=== PATIENT | female | born 1945 | race Caucasian/White ===

== ENCOUNTER 2018-07-08 10:11 | Inpatient (IN) ==
[2018-07-08] MEDS ORDERED: ONDANSETRON INJ 2 MG/ML 2 ML VIAL IV STA ×2 (10:56→12:31)
[2018-07-08] MEDS ORDERED: fentaNYL citrate 100 MCG/2 ML VIAL IV STA (10:56)
[2018-07-08] MEDS: SODIUM CHLORIDE 0.9% 1000ML 1,000 ML IV SCH ×2 (11:11→16:14)
[2018-07-08 11:13] LABS: Basophils # (auto) 0.02 K/uL (0-0.2); Basophils % (auto) 0.3 %; Eosinophils # (auto) 0.18 K/uL (0-0.5); Eosinophils % (auto) 2.8 %; Hematocrit (blood only) 36.8 % (37-47); Immature Granulocytes # (auto) 0.01 K/uL (0.00-0.02); Immature Granulocytes % (auto) 0.2 %; Lymphocytes # (auto) 1.57 K/uL (1.2-3.4); Lymphocytes % (auto) 24.2 %; Mean Corpuscular Hgb Conc 32.6 g/dL (32-36); Mean Corpuscular Volume 95.8 fL (80-100); Mean Platelet Volume 10.3 fL (7.4-10.4); Monocytes # (auto) 0.51 K/uL (0.11-0.59); Monocytes % (auto) 7.8 %; Neutrophils # (auto) 4.21 K/uL (1.4-6.5); Neutrophils % (auto) 64.7 %; Platelet Count 238 K/uL (130-400); RDW Coefficient of Variation 13.9 % (11.5-14.5); RDW Standard Deviation 48.7 fL (36.4-46.3); Red Blood Count 3.84 M/uL (4.2-5.4)
[2018-07-08 11:24] LABS: Albumin Level 3.7 gm/dl (3.4-5.0); BUN Creatinine Ratio 17.5 (10-20); Est GFR (African American) 59.1; Potassium 4.7 mmol/L (3.5-5.1)
[2018-07-08 11:26] LABS: Albumin Globulin Ratio 1.1 (0.9-2); Bilirubin,Total 0.3 mg/dl (0.2-1); Globulin 3.5 gm/dl (2.5-4.0); Total Protein 7.2 gm/dl (6.4-8.2)
[2018-07-08 11:37] LABS: iSTAT Hemoglobin 12.2 g/dl (12.0-16.0); iSTAT Ionized Calcium 1.28 mmol/l (1.12-1.32)
--- NOTE | 2018-07-08 11:44 | XRay Report ---
XR femur LT 2V routine HISTORY: 72 years-old Female fall, tka acute left-sided pain status post fall COMPARISON: Left knee radiographs 02/25/2013 TECHNIQUE: 2 views of the left femur. FINDINGS: Limited study secondary to positioning. 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 Partially imaged fusion hardware about the pelvis. Left knee total joint arthroplasty with prior patellar resurfacing. Imaged proximal tibia and fibula appear intact. Moderate soft tissue swelling a bout the knee and distal thigh. There is acute comminuted fracture of the distal femoral metadiaphysi s which demonstrates approximately 9 degrees apex lateral and 38 degrees apex volar angulation. Fract ure fragments are displaced laterally 2 cm and posteriorly measuring up to 1 cm. There is mild foresh ortening/apposition of the fracture fragments measuring up to approximately 3 cm. The distal extent o f the fracture extends to the level of the femoral prosthesis. IMPRESSION: Acute comminuted, displaced and angulated fracture of the distal femoral metadiaphysis with distal fr acture extending to the level of the femoral prosthesis. The above report was generated using voice recognition software. It may contain grammatical, syntax o r spelling errors. Electronically signed by: Alex Pretty M.D. 07/08/2018 11:43 AM
[2018-07-08] MEDS ORDERED: HYDROmorphone INJ 0.5 MG/0.5 ML SYR IV STA (12:31)
--- NOTE | 2018-07-08 12:31 | History & Physical Report ---
Date of Service July 08, 2018 Assessment & Plan (1) Fall: Ongoing balance issues Purely mechanical PT/OT (2) Femur fracture, left: As per ortho Pre-op Hb 12.0 Diet and DVT proph as per ortho PT/OT Likely need rehab Pt is NPO, if not planning for OR today I have no issues with adding diet for today (3) HTN (hypertension): continue home meds (4) Hypothyroid: continue home meds (5) Depression: continue home meds (6) Dementia: Dx in May, issues with sundowning continue home meds (7) Anxiety: continue home meds (8) Overactive bladder: continue home meds (9) DVT prophylaxis: As per ortho History of Present Illness Primary Care Provider: JOANNA RODARTE 72 y/o F c/o L LE pain. Pt fell this AM. She states she fell directly onto her L knee. She states that she has been having ongoing balance issues and has had several falls. She has seen her PCP for this and there is no clear answer to this. PCP feels it is related to loss of core strength s/p several spine surgeries. Pt was given exercises to work on rebuilding her core strength but had not started this yet. Pt states her fall was purely related to loss of balance. No dizziness or lightheadedness or syncope. Pt denies fever, SOB, chest pain, abd pain, n/v/c/d, LE swelling. Pt states that other than the loss of balance, she has had no issues lately. She did not take the clonazpam today. Last PO intake was a muffin around 7a. Pt states she was dx with Alzheimer's this past May. She and her daughter both deny issues with sundowning currently. Allergies Allergy/AdvReac Type Severity Reaction Status Date / Time Iodinated Contrast- Oral and Allergy Severe HIVES Verified 07/08/18 11:15 IV Dye baclofen Allergy Unknown Unverified 07/08/18 11:15 cyclobenzaprine Allergy Unknown Unverified 07/08/18 11:15 [From Flexeril] morphine Allergy Unknown Unverified 07/08/18 11:15 Penicillins AdvReac Intermediate RASH Verified 07/08/18 11:15 tizanidine [From Zanaflex] AdvReac Hallucinati Unverified 07/08/18 11:15 ng Home Medications Home Medications Medication Instructions Recorded Confirmed Type bupropion HCl 150 mg PO DAILY 05/27/18 07/08/18 History cevimeline 30 mg PO TID 05/27/18 07/08/18 History clonazepam 1 mg PO DIRECTED PRN 05/27/18 07/08/18 History donepezil 5 mg PO DAILY 05/27/18 07/08/18 History folic acid 2 mg PO QPM 05/27/18 07/08/18 History levothyroxine [Synthroid] 25 mcg PO DAILY 05/27/18 07/08/18 History lisinopril 10 mg PO DAILY 05/27/18 07/08/18 History meloxicam 15 mg PO DAILY 05/27/18 07/08/18 History solifenacin [Vesicare] 10 mg PO QPM 05/27/18 07/08/18 History vortioxetine [Trintellix] 20 mg PO DAILY 05/27/18 07/08/18 History cholecalciferol (vitamin D3) 1,000 unit PO DAILY 07/08/18 07/08/18 History [Vitamin D3] hydroxychloroquine 400 mg PO DAILY 07/08/18 07/08/18 History [id number]-[id number]-IF-calcium-mins 1 tab PO QAM 07/08/18 07/08/18 History [One-A-Day Women's Petites] oxycodone 5 mg PO DIRECTED PRN 07/08/18 07/08/18 History venlafaxine 300 mg PO QAM 07/08/18 07/08/18 History Past Med/Surg History Medical History Alzheimers disease (Chronic) Arthritis (Chronic) Surgical History H/O knee surgery (Resolved) Family History Mother CVA (cerebrovascular accident due to intracerebral hemorrhage) Father CVA (cerebral vascular accident) Social History Feels Safe at Home: Yes Smoking Status: Former smoker Smoking End Date: >10 yrs Hx Alcohol Use: No Hx Substance Use: No Review of Systems Pertinent positives and negatives reviewed in HPI--all others negative Physical Exam 2 Vital Signs (Past 24 Hours): Last Vital Signs Temp 36.7 C 07/08/18 10:22 Pulse 82 07/08/18 10:22 Resp 18 07/08/18 10:22 BP 150/75 H 07/08/18 10:22 Pulse Ox 98 07/08/18 11:12 Constitutional: WD/WN, vitals as above Eyes: normal visual rodrigez by confrontation and + anicteric sclerae Neck: normal visual inspection and trachea midline Respiratory: normal respiratory effort, lungs clear to auscultation Cardiovascular: Rate/Rhythm: regular rate and regular rhythm Gastrointestinal (Abdomen): Inspection/Auscultation: abdomen not distended Percussion/Palpation: abdomen soft; abdomen nontender Musculoskeletal: Head/Neck/Chest: normocephalic and head atraumatic negative for edema, peripheral pulses intact Skin: no rashes, warm and dry Neurologic: awake; not confused Speech / Cognition: normal speech Psychiatric: A+Ox3, euthymic affect Results & Data Diagnostic Findings L LE XR: Acute comminuted, displaced and angulated fracture of the distal femoral metadiaphysis with distal fracture extending to the level of the femoral prosthesis.
--- NOTE | 2018-07-08 13:06 | XRay Report ---
XR chest 1V portable CLINICAL HISTORY: trauma, preop COMPARISON STUDY: Chest radiograph November 17, 2012. FINDINGS: Spinal hardware is incidentally noted. Cardiomediastinal silhouette is unremarkable. There is no consolidation or evidence for pulmonary edema. There is no pneumothorax or pleural effusion. Th ere is old deformity of the distal left clavicle. There is moderate arthritis of the bilateral glenoh umeral joints. IMPRESSION: No acute cardiopulmonary findings. Electronically signed by: Karl Mcmullen M.D. 07/08/2018 1:05 PM
[2018-07-08 13:37] LABS: Appearance Urine Clear (Clear); Bilirubin Urine Negative (Negative); Color Urine Yellow; Glucose Urine UA Negative (Negative); Ketones Urine Negative (Negative); Leukocyte Esterase Urine Negative (Negative); Nitrite Urine Negative (Negative); Protein Urine Negative (Negative); Specific Gravity Urine 1.019 (1.000-1.030); Urobilinogen Urine Negative (Negative)
[2018-07-08] MEDS ORDERED: MAGNESIUM HYDROXIDE SUSP 30 ML UDC PO PRN (15:27)
--- NOTE | 2018-07-08 15:33 | Emergency Department Note ---
Entered by Kathy Burger acting as a scribe for Sheeba Hurd MD History of Present Illness General Chief complaint: Fall Stated complaint: fall/ head & L knee pain Source: patient History of Present Illness Provider complaint: fall Onset (ago): minute(s) (shortly prior to arrival ) Location: lower extremity (knee) and left Maximum Pain Intensity: 10 Quality: + other (fall) Associated symptoms: + denies other symptoms (denies hip pain) and + other ( left knee pain); no chest pain The patient is a 72 year old female who presents to the Emergency Room with complaints of a fall occurring shortly prior to arrival. She rates her pain at a 10/10. The patient reports having left knee pain and states that it also radiates to her back. She denies hitting her head with this fall and also denies hip and chest pain. The patient reports a history of bilateral knee surgeries. Home Medications Home Medications Medication Instructions Recorded Confirmed Type bupropion HCl 150 mg PO DAILY 05/27/18 07/08/18 History cevimeline 30 mg PO TID 05/27/18 07/08/18 History clonazepam 1 mg PO DIRECTED PRN 05/27/18 07/08/18 History donepezil 5 mg PO DAILY 05/27/18 07/08/18 History folic acid 2 mg PO QPM 05/27/18 07/08/18 History levothyroxine [Synthroid] 25 mcg PO DAILY 05/27/18 07/08/18 History lisinopril 10 mg PO DAILY 05/27/18 07/08/18 History meloxicam 15 mg PO DAILY 05/27/18 07/08/18 History solifenacin [Vesicare] 10 mg PO QPM 05/27/18 07/08/18 History vortioxetine [Trintellix] 20 mg PO DAILY 05/27/18 07/08/18 History cholecalciferol (vitamin D3) 1,000 unit PO DAILY 07/08/18 07/08/18 History [Vitamin D3] hydroxychloroquine 400 mg PO DAILY 07/08/18 07/08/18 History rchbikdk-vvtz-AH-calcium-mins 1 tab PO QAM 07/08/18 07/08/18 History [One-A-Day Women's Petites] oxycodone 5 mg PO DIRECTED PRN 07/08/18 07/08/18 History venlafaxine 300 mg PO QAM 07/08/18 07/08/18 History Allergies Allergy/AdvReac Type Severity Reaction Status Date / Time Iodinated Contrast- Oral and Allergy Severe HIVES Verified 07/08/18 11:15 IV Dye baclofen Allergy Unknown Unverified 07/08/18 11:15 cyclobenzaprine Allergy Unknown Unverified 07/08/18 11:15 [From Flexeril] morphine Allergy Unknown Unverified 07/08/18 11:15 Penicillins AdvReac Intermediate RASH Verified 07/08/18 11:15 tizanidine [From Zanaflex] AdvReac Hallucinati Unverified 07/08/18 11:15 ng Past Med/Surg History Medical History Overactive bladder Anxiety Depression Hypothyroid HTN (hypertension) Alzheimers disease (Chronic) Arthritis (Chronic) Anemia Surgical History H/O knee surgery (Resolved) Family History Mother CVA (cerebrovascular accident due to intracerebral hemorrhage) Father CVA (cerebral vascular accident) Social History marital status: Current Living Situation: Spouse Current Living Situation Comment: in apartment with Other Information That Helps Us Care for You: No Feels Safe at Home: Yes Safety Concerns: Feels Safe At This Time Smoking Status: Former smoker Tobacco Type: cigarettes Do You Dip or Chew Tobacco: No Smoking End Date: 2011 Hx Alcohol Use: No Hx Substance Use: No Beliefs That Will Affect Care: None Communication Ability: Effective Review of Systems See HPI for pertinent positives & negatives. and A total of 10 systems reviewed and were otherwise negative Physical Exam Vital Signs Vital Signs - 24 hr 07/08/18 22:19 07/08/18 22:45 07/09/18 08:07 Temperature 37.4 C 37.8 C H Temperature Source Oral Oral Pulse Rate [Apical] Pulse Rate [Left Apical] 74 Pulse Rate [Left Finger] 91 H Pulse Rhythm [Apical] Pulse Rhythm [Left Apical] Regular Pulse Strength [Left Apical] Normal Respiratory Rate 18 14 Respiratory Effort / Characteristics Non-Labored Spontaneous Non-Labored Spontaneous Respiratory Depth Normal Normal Respiratory Pattern Regular Regular Blood Pressure [Left Arm] 133/79 Blood Pressure [Right Arm] 138/74 Blood Pressure Mean [Left Arm] 97 Blood Pressure Mean [Right Arm] 95 Blood Pressure Position [Left Arm] Lying Blood Pressure Position [Right Arm] Lying Pulse Oximetry 96 97 Oxygen Delivery Method Room Air Room Air Room Air Oxygen Flow Rate 07/09/18 09:19 07/09/18 13:05 07/09/18 16:01 Temperature 37.4 C 36.5 C Temperature Source Oral Temporal Artery Scan Pulse Rate [Apical] 101 H Pulse Rate [Left Apical] 95 H Pulse Rate [Left Finger] Pulse Rhythm [Apical] Regular Pulse Rhythm [Left Apical] Regular Pulse Strength [Left Apical] Normal Respiratory Rate 18 23 Respiratory Effort / Characteristics Non-Labored Spontaneous Non-Labored Non-Labored Spontaneous Respiratory Depth Normal Normal Normal Respiratory Pattern Regular Regular Regular Blood Pressure [Left Arm] 127/63 Blood Pressure [Right Arm] 145/70 H Blood Pressure Mean [Left Arm] 84 Blood Pressure Mean [Right Arm] 95 Blood Pressure Position [Left Arm] Lying Blood Pressure Position [Right Arm] Sitting Pulse Oximetry 97 100 Oxygen Delivery Method Room Air Room Air Oxymask Oxygen Flow Rate 10 07/09/18 16:10 07/09/18 16:20 07/09/18 16:30 Temperature Temperature Source Temporal Artery Scan Temporal Artery Scan Temporal Artery Scan Pulse Rate [Apical] 100 H 98 H 98 H Pulse Rate [Left Apical] Pulse Rate [Left Finger] Pulse Rhythm [Apical] Regular Regular Regular Pulse Rhythm [Left Apical] Pulse Strength [Left Apical] Respiratory Rate 21 19 16 Respiratory Effort / Characteristics Non-Labored Spontaneous Non-Labored Spontaneous Non-Labored Spontaneous Respiratory Depth Normal Normal Normal Respiratory Pattern Regular Regular Regular Blood Pressure [Left Arm] 120/63 128/62 106/56 L Blood Pressure [Right Arm] Blood Pressure Mean [Left Arm] 82 84 72 Blood Pressure Mean [Right Arm] Blood Pressure Position [Left Arm] Lying Lying Lying Blood Pressure Position [Right Arm] Pulse Oximetry 100 100 100 Oxygen Delivery Method Oxymask Nasal Cannula Nasal Cannula Oxygen Flow Rate 10 2 2 Vital signs reviewed. General: Elderly female, in some discomfort. HEENT: No scleral icterus, PERRLA, neck supple. Atraumatic. Cardiovascular: Regular rate and rhythm, no extra sounds. Pulmonary: Clear to auscultation bilaterally, normal work of breathing. Abdomen: Soft, nontender, nondistended, positive bowel sounds. Musculoskeletal: Atraumatic, no peripheral edema. Deformity of the left knee. Swelling appreciated. Lying on the right side in position of comfort. Neurovascularly intact distally. Neurologic: Patient awake alert and oriented x 3, full strength in all 4 extremities. Cranial nerves 2 through 12 grossly intact. Skin: Warm, dry, no rash Course 1052: Past medical records reviewed. The patient was evaluated in room B3B, and a complete history and physical examination were performed. 1125: I updated the patient on her X-Ray results. 1145: I discussed the patient's case with Edouard LEE who said that he will come see the patient. 1155: The patient stated that she would like [facility]. 1222: I discussed the patient's case with Dr[facility] who said to admit the patient to medicine. 1223: I updated the patient. 1230: I discussed the patient's case with Dr. Edison Paul who will evaluate the patient for further management. Consultations Consultation #1: Edouard LEE Time: 11:45 Consultation #2: [facility] Time: 12:22 Consultation #3: Dr. Edison Paul Time: 12:30 Administered Medications Bupropion HCl (Wellbutrin-Xl) 150 mg PO DAILY [facility] Stop: 08/08/18 08:59 Last Admin: 07/09/18 08:33 Dose: 150 mg Clonazepam (Klonopin) 1 mg PO BID PRN PRN Reason: Anxiety Stop: 08/07/18 17:17 Last Admin: 07/09/18 03:23 Dose: 1 mg Donepezil HCl (Aricept) 5 mg PO DAILY [facility] Stop: 08/08/18 08:59 Last Admin: 07/09/18 08:33 Dose: 5 mg Hydromorphone HCl (Dilaudid) 0.5 mg IV Q4H PRN PRN Reason: Pain Stop: 07/22/18 15:26 Last Admin: 07/09/18 11:50 Dose: 0.5 mg Admin: 07/08/18 17:28 Dose: 0.5 mg Hydroxychloroquine Sulfate (Plaquenil) 400 mg PO QDD [facility] Stop: 08/07/18 17:29 Last Admin: 07/08/18 17:59 Dose: 400 mg Sodium Chloride (Nss 1000ml) 1,000 mls @ 125 mls/hr IV .Q8H [facility]ISSE Stop: 08/07/18 10:59 Last Admin: 07/09/18 09:30 Dose: 125 mls/hr Infusion: 07/09/18 08:46 Dose: 125 mls/hr Infusion: 07/09/18 05:46 Dose: 125 mls/hr Admin: 07/09/18 00:46 Dose: 125 mls/hr Infusion: 07/09/18 00:14 Dose: 125 mls/hr Admin: 07/08/18 16:14 Dose: 125 mls/hr Infusion: 07/08/18 16:14 Dose: 125 mls/hr Admin: 07/08/18 11:11 Dose: 125 mls/hr Levothyroxine Sodium (Synthroid) 25 mcg PO DAILYBB [facility] Stop: 08/08/18 06:29 Last Admin: 07/09/18 05:36 Dose: 25 mcg Lisinopril (Zestril) 10 mg PO DAILY CHARISSE Stop: 08/08/18 08:59 Last Admin: 07/09/18 08:33 Dose: 10 mg Meloxicam (Mobic) 15 mg PO DAILY [facility] Stop: 08/08/18 08:59 Last Admin: 07/09/18 08:33 Dose: 15 mg Vesicare 10mg - (Patient's Own Med) 1 ea PO HS [facility] Stop: 08/07/18 20:59 Last Admin: 07/08/18 22:03 Dose: 10 mg Cevimeline 30mg - (Patient's Own Med) 1 ea PO TID [facility]SE Stop: 08/07/18 20:59 Last Admin: 07/09/18 08:34 Dose: 1 mg Admin: 07/08/18 22:04 Dose: 30 mg Oxycodone/Acetaminophen (Percocet 5mg/325mg) 1 tab PO Q4H PRN PRN Reason: Pain Stop: 07/22/18 16:34 Last Admin: 07/09/18 08:33 Dose: 1 tab Admin: 07/09/18 03:23 Dose: 1 tab Admin: 07/08/18 22:01 Dose: 1 tab Venlafaxine HCl (Effexor Extended Release) 300 mg PO QAM [facility] Stop: 08/08/18 08:59 Last Admin: 07/09/18 08:33 Dose: 150 mg Vitamin D (Vitamin D3) 1,000 units PO DAILY [facility] Stop: 08/08/18 08:59 Last Admin: 07/09/18 08:33 Dose: 1,000 units Vortioxetine (Trintellix) 1 ea PO Q2D@0900 [facility] Stop: 07/14/18 23:59 Last Admin: 07/09/18 08:34 Dose: 1 ea Discontinued Medications Bacitracin (Bacitracin) Confirm Administered Dose 50,000 units .ROUTE .STK-MED ONE Stop: 07/09/18 13:01 Last Admin: 07/09/18 15:51 Dose: 50,000 units Bupivacaine HCl (Sensorcaine 0.25% Inj) Confirm Administered Dose 60 ml .ROUTE .STK-MED ONE Stop: 07/09/18 13:00 Last Admin: 07/09/18 14:30 Dose: Not Given Bupivacaine HCl/Epinephrine Bitart (Sensorcaine/Epinephrine 0.5% Mpf 1:200,000) Confirm Administered Dose 60 ml .ROUTE .STK-MED ONE Stop: 07/09/18 13:09 Last Admin: 07/09/18 15:25 Dose: 60 ml Bupivacaine Liposome (Exparel) Confirm Administered Dose 266 mg .ROUTE .STK-MED ONE Stop: 07/09/18 13:01 Last Admin: 07/09/18 14:30 Dose: Not Given Cefazolin Sodium (Ancef 2000mg) Confirm Administered Dose 2,000 mg IV .STK-MED ONE Stop: 07/09/18 13:12 Last Admin: 07/09/18 13:13 Dose: 2,000 mg Epinephrine HCl (Epinephrine) Confirm Administered Dose 1 mg .ROUTE .STK-MED ONE Stop: 07/09/18 13:03 Last Admin: 07/09/18 14:31 Dose: Not Given Fentanyl Citrate (Fentanyl Citrate) 50 mcg IV NOW STA Stop: 07/08/18 10:57 Last Admin: 07/08/18 11:11 Dose: 50 mcg Hydromorphone HCl (Dilaudid) 1 mg IV NOW STA Stop: 07/08/18 12:32 Last Admin: 07/08/18 12:42 Dose: 1 mg Miscellaneous (Order Awaiting Action) 1 ea N/A QS [facility] Stop: 08/07/18 15:59 Last Admin: 07/08/18 17:05 Dose: Not Given Miscellaneous (Order Awaiting Action) 1 ea N/A QS [facility]SE Stop: 08/07/18 15:59 Last Admin: 07/08/18 17:05 Dose: Not Given Miscellaneous (Order Awaiting Action) 1 ea N/A QS [facility] Stop: 08/07/18 15:59 Last Admin: 07/08/18 17:06 Dose: Not Given Miscellaneous (Order Awaiting Action) 1 ea N/A QS CHARISSE Stop: 08/07/18 15:59 Last Admin: 07/08/18 17:05 Dose: Not Given Ondansetron HCl (Zofran) 4 mg IV NOW STA Stop: 07/08/18 10:57 Last Admin: 07/08/18 11:11 Dose: 4 mg Ondansetron HCl (Zofran) 4 mg IV NOW STA Stop: 07/08/18 12:32 Last Admin: 07/08/18 12:43 Dose: 4 mg Sodium Chloride (Sodium Chloride 0.9%) Confirm Administered Dose 30 ml .ROUTE .STK-MED ONE Stop: 07/09/18 13:02 Last Admin: 07/09/18 14:31 Dose: Not Given Medical Decision Making Differential Diagnosis Differential diagnosis: Etiologies such as fracture, dislocation, neurovascular compromise, compartment syndrome, soft tissue injury, as well as others were entertained. Medical Records Attestation: I reviewed the patient's medical records. Home Medications Current Medication List: was personally reviewed by me Laboratory Data Attestation: I reviewed the patient's lab results. Result diagrams: 07/09/18 06:37 07/09/18 06:37 Lab Results 07/08/18 07/08/18 07/08/18 Range/Units 10:50 10:50 11:23 WBC 6.50 (4.8-10.8) K/uL RBC 3.84 L (4.2-5.4) M/uL Hgb 12.0 (12.0-16.0) g/dL POC Hgb 12.2 (12.0-16.0) g/dl Hct 36.8 L (37-47) % POC Hct 36 L (37-47) % MCV 95.8 (80-100) fL MCH 31.3 (25-34) pg MCHC 32.6 (32-36) g/dL RDW Std Deviation 48.7 H (36.4-46.3) fL RDW Coeff of Dru 13.9 (11.5-14.5) % Plt Count 238 (130-400) K/uL MPV 10.3 (7.4-10.4) fL Immature Gran % (Auto) 0.2 % Neut % (Auto) 64.7 % Lymph % (Auto) 24.2 % [place]anan % (Auto) 7.8 % Eos % (Auto) 2.8 % Baso % (Auto) 0.3 % Immature Gran # (Auto) 0.01 (0.00-0.02) K/uL Neut # (Auto) 4.21 (1.4-6.5) K/uL Lymph # (Auto) 1.57 (1.2-3.4) K/uL [place]anan # (Auto) 0.51 (0.11-0.59) K/uL Eos # (Auto) 0.18 (0-0.5) K/uL Baso # (Auto) 0.02 (0-0.2) K/uL Platelet Estimate (Normal) POC Sodium 143 (135-144) mEq/L Sodium 140 (136-145) mmol/L POC Potassium 4.7 (3.3-5.0) mEq/L Potassium 4.7 (3.5-5.1) mmol/L POC Chloride 107 (101-112) mEq/L Chloride 111 H (98-107) mmol/L Carbon Dioxide 26 (21-32) mmol/L POC Total CO2 27 (24-31) mEq/l Anion Gap 3.0 (3-11) POC Anion Gap 15.0 L (16-25) mmol/L POC BUN 19 H (7-18) mg/dl BUN 19 H (7-18) mg/dl Creatinine 1.09 (0.6-1.2) mg/dl POC Creatinine 1.1 (0.6-1.3) mg/dl Est Cr Clr Drug Dosing 46.0 ml/min Est GFR ( Amer) 59.1 Est GFR (Non-Af Amer) 51.0 BUN/Creatinine Ratio 17.5 (10-20) Glucose 97 (70-99) mg/dl POC Glucose (other) 92 (70-99) mg/dl Calcium 9.0 (8.5-10.1) mg/dl POC Ioniz Calcium Sharon 1.28 (1.12-1.32) mmol/l Total Bilirubin 0.3 (0.2-1) mg/dl AST 40 H (15-37) U/L ALT 50 (12-78) U/L Alkaline Phosphatase 138 H (45-117) U/L Total Protein 7.2 (6.4-8.2) gm/dl Albumin 3.7 (3.4-5.0) gm/dl Globulin 3.5 (2.5-4.0) gm/dl Albumin/Globulin Ratio 1.1 (0.9-2) Urine Color Urine Appearance (Clear) Urine pH (4.5-7.5) Ur Specific [place] (1.000-1.030) Urine Protein (Negative) Urine Glucose (UA) (Negative) Urine Ketones (Negative) Urine Blood (Negative) Urine Nitrite (Negative) Urine Bilirubin (Negative) Urine Urobilinogen (Negative) Ur Leukocyte Esterase (Negative) Blood Type Antibody Screen 07/08/18 07/08/18 07/09/18 Range/Units 13:30 15:54 06:37 WBC 9.02 (4.8-10.8) K/uL RBC 2.92 L (4.2-5.4) M/uL Hgb 9.3 L (12.0-16.0) g/dL POC Hgb (12.0-16.0) g/dl Hct 28.0 L (37-47) % POC Hct (37-47) % MCV 95.9 (80-100) fL MCH 31.8 (25-34) pg MCHC 33.2 (32-36) g/dL RDW Std Deviation 48.5 H (36.4-46.3) fL RDW Coeff of Dru 14.0 (11.5-14.5) % Plt Count 163 (130-400) K/uL MPV 10.8 H (7.4-10.4) fL Immature Gran % (Auto) 0.3 % Neut % (Auto) 61.8 % Lymph % (Auto) 26.1 % [place]anan % (Auto) 11.5 % Eos % (Auto) 0.1 % Baso % (Auto) 0.2 % Immature Gran # (Auto) 0.03 H (0.00-0.02) K/uL Neut # (Auto) 5.57 (1.4-6.5) K/uL Lymph # (Auto) 2.35 (1.2-3.4) K/uL [place]anan # (Auto) 1.04 H (0.11-0.59) K/uL Eos # (Auto) 0.01 (0-0.5) K/uL Baso # (Auto) 0.02 (0-0.2) K/uL Platelet Estimate Normal (Normal) POC Sodium (135-144) mEq/L Sodium (136-145) mmol/L POC Potassium (3.3-5.0) mEq/L Potassium (3.5-5.1) mmol/L POC Chloride (101-112) mEq/L Chloride (98-107) mmol/L Carbon Dioxide (21-32) mmol/L POC Total CO2 (24-31) mEq/l Anion Gap (3-11) POC Anion Gap (16-25) mmol/L POC BUN (7-18) mg/dl BUN (7-18) mg/dl Creatinine (0.6-1.2) mg/dl POC Creatinine (0.6-1.3) mg/dl Est Cr Clr Drug Dosing ml/min Est GFR ( Amer) Est GFR (Non-Af Amer) BUN/Creatinine Ratio (10-20) Glucose (70-99) mg/dl POC Glucose (other) (70-99) mg/dl Calcium (8.5-10.1) mg/dl POC Ioniz Calcium Sharon (1.12-1.32) mmol/l Total Bilirubin (0.2-1) mg/dl AST (15-37) U/L ALT (12-78) U/L Alkaline Phosphatase (45-117) U/L Total Protein (6.4-8.2) gm/dl Albumin (3.4-5.0) gm/dl Globulin (2.5-4.0) gm/dl Albumin/Globulin Ratio (0.9-2) Urine Color Yellow Urine Appearance Clear (Clear) Urine pH 5.0 (4.5-7.5) Ur Specific [place] 1.019 (1.000-1.030) Urine Protein Negative (Negative) Urine Glucose (UA) Negative (Negative) Urine Ketones Negative (Negative) Urine Blood Negative (Negative) Urine Nitrite Negative (Negative) Urine Bilirubin Negative (Negative) Urine Urobilinogen Negative (Negative) Ur Leukocyte Esterase Negative (Negative) Blood Type O Positive Antibody Screen NEGATIVE 07/09/18 Range/Units 06:37 WBC (4.8-10.8) K/uL RBC (4.2-5.4) M/uL Hgb (12.0-16.0) g/dL POC Hgb (12.0-16.0) g/dl Hct (37-47) % POC Hct (37-47) % MCV (80-100) fL MCH (25-34) pg MCHC (32-36) g/dL RDW Std Deviation (36.4-46.3) fL RDW Coeff of Dru (11.5-14.5) % Plt Count (130-400) K/uL MPV (7.4-10.4) fL Immature Gran % (Auto) % Neut % (Auto) % Lymph % (Auto) % [place]anan % (Auto) % Eos % (Auto) % Baso % (Auto) % Immature Gran # (Auto) (0.00-0.02) K/uL Neut # (Auto) (1.4-6.5) K/uL Lymph # (Auto) (1.2-3.4) K/uL [place]anan # (Auto) (0.11-0.59) K/uL Eos # (Auto) (0-0.5) K/uL Baso # (Auto) (0-0.2) K/uL Platelet Estimate (Normal) POC Sodium (135-144) mEq/L Sodium 138 (136-145) mmol/L POC Potassium (3.3-5.0) mEq/L Potassium 4.7 (3.5-5.1) mmol/L POC Chloride (101-112) mEq/L Chloride 111 H (98-107) mmol/L Carbon Dioxide 22 (21-32) mmol/L POC Total CO2 (24-31) mEq/l Anion Gap 5.0 (3-11) POC Anion Gap (16-25) mmol/L POC BUN (7-18) mg/dl BUN 17 (7-18) mg/dl Creatinine 0.92 (0.6-1.2) mg/dl POC Creatinine (0.6-1.3) mg/dl Est Cr Clr Drug Dosing 54.5 ml/min Est GFR ( Amer) 72.6 Est GFR (Non-Af Amer) 62.6 BUN/Creatinine Ratio 18.8 (10-20) Glucose 95 (70-99) mg/dl POC Glucose (other) (70-99) mg/dl Calcium 8.3 L (8.5-10.1) mg/dl POC Ioniz Calcium Sharon (1.12-1.32) mmol/l Total Bilirubin (0.2-1) mg/dl AST (15-37) U/L ALT (12-78) U/L Alkaline Phosphatase (45-117) U/L Total Protein (6.4-8.2) gm/dl Albumin (3.4-5.0) gm/dl Globulin (2.5-4.0) gm/dl Albumin/Globulin Ratio (0.9-2) Urine Color Urine Appearance (Clear) Urine pH (4.5-7.5) Ur Specific [place] (1.000-1.030) Urine Protein (Negative) Urine Glucose (UA) (Negative) Urine Ketones (Negative) Urine Blood (Negative) Urine Nitrite (Negative) Urine Bilirubin (Negative) Urine Urobilinogen (Negative) Ur Leukocyte Esterase (Negative) Blood Type Antibody Screen Imaging Data Radiologist's Impression: Radiology results as stated below per my review and the radiologist's interpretation: XR femur LT 2V routine HISTORY: 72 years-old Female fall, tka acute left-sided pain status post fall COMPARISON: Left knee radiographs 02/25/2013 TECHNIQUE: 2 views of the left femur. FINDINGS: Limited study secondary to positioning. 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 Partially imaged fusion hardware about the pelvis. Left knee total joint arthroplasty with prior patellar resurfacing. Imaged proximal tibia and fibula appear intact. Moderate soft tissue swelling about the knee and distal thigh. There is acute comminuted fracture of the distal femoral metadiaphysis which demonstrates approximately 9 degrees apex lateral and 38 degrees apex volar angulation. Fracture fragments are displaced laterally 2 cm and posteriorly measuring up to 1 cm. There is mild foreshortening/apposition of the fracture fragments measuring up to approximately 3 cm. The distal extent of the fracture extends to the level of the femoral prosthesis. IMPRESSION: Acute comminuted, displaced and angulated fracture of the distal femoral metadiaphysis with distal fracture extending to the level of the femoral prosthesis. The above report was generated using voice recognition software. It may contain grammatical, syntax or spelling errors. Electronically signed by: Alex Pretty M.D. 07/08/2018 11:43 AM XR chest 1V portable CLINICAL HISTORY: trauma, preop COMPARISON STUDY: Chest radiograph November 17, 2012. FINDINGS: Spinal hardware is incidentally noted. Cardiomediastinal silhouette is unremarkable. There is no consolidation or evidence for pulmonary edema. There is no pneumothorax or pleural effusion. There is old deformity of the distal left clavicle. There is moderate arthritis of the bilateral glenohumeral joints. IMPRESSION: No acute cardiopulmonary findings. Electronically signed by: Karl Mcmullen M.D. 07/08/2018 1:05 PM ECG Data Attestation: I personally reviewed and interpreted this ECG as follows: Indication: other (pre-operation) Rate (beats per minute): 74 Rhythm: normal sinus Findings: + other (low voltage, QTC 417); no PAC, no PVC, no ST depression, no ST elevation, no acute ischemic change and no ectopy Blood Pressure Blood Pressure Findings: Elevated blood pressure Blood Pressure Disposition: further management by hospitalist MDM Narrative This pt was evaluated and appeared to be in significant discomfort. IV access was obtained and lab work was drawn. Pt was hydrated with NSS. Pt was given IV fentanyl with minimal relief. IV dilaudid was administered. As pt had knee replaced by Dr Perez, [facility] was paged. There was a significant delay in response after several attempts at contacting Dr Plascencia. Pt initially was d/w [facility] Edouard Singleton PA-C. He agreed to evaluate in the ED. Pt was reevaluated and asked if she could be seen by Dr Phillips or one of his partners, as she had been evaluated by him for her shoulder recently. Dr Jalloh was contacted and was happy to see the pt. Dr. Engel of the hospitalist service was consulted for admission and further management. Pt was placed in a knee immobilizer per ortho recommendations. She is agreeable with the plan, but understandably anxious. Impression & Plan Closed fracture of distal end of left femur, History of total knee arthroplasty Discharge Plan Visit Data *Final* Discharge Date/Time: 07/08/18 13:54 Chief Complaint: Fall Stated Complaint: fall/ head & L knee pain ED Provider: Sheeba Hurd Discharge Problem: Closed fracture of distal end of left femur, History of total knee arthroplasty Patient Disposition: Admitted As Inpatient Discharge Instructions Interventions: ED Discharge Assessment Last Done: 07/08/18 13:54 The scribe's documentation has been prepared under my direction and personally reviewed by me in its entirety. I confirm that the note above accurately reflects all work, treatment, procedures, and medical decision making performed by me.
[2018-07-08] MEDS ORDERED: VESICARE - ORDER AWAITING ACTION SCH (16:00)
--- NOTE | 2018-07-08 16:18 | Anesthesiology Consultation ---
Date of Service July 08, 2018 Assessment & Plan (1) Encounter for pre-operative examination: Chart Review Chart Review: Acceptable Risk for Surgery History Surgery Operation Date: 07/09/18 13:00 Proposed Procedures p Left Distal Femur Fracture Retrograde IM Nail - Alan Jalloh MD Height/Weight Height: 5 ft 4 in Weight: 71.81 kg Allergies Allergy/AdvReac Type Severity Reaction Status Date / Time Iodinated Contrast- Oral and Allergy Severe HIVES Verified 07/08/18 11:15 IV Dye baclofen Allergy Unknown Unverified 07/08/18 11:15 cyclobenzaprine Allergy Unknown Unverified 07/08/18 11:15 [From Flexeril] morphine Allergy Unknown Unverified 07/08/18 11:15 Penicillins AdvReac Intermediate RASH Verified 07/08/18 11:15 tizanidine [From Zanaflex] AdvReac Hallucinati Unverified 07/08/18 11:15 ng Medications Home Medications Medication Instructions Recorded Confirmed Last Taken bupropion HCl 150 mg PO DAILY 05/27/18 07/08/18 Unknown cevimeline 30 mg PO TID 05/27/18 07/08/18 Unknown clonazepam 1 mg PO DIRECTED PRN 05/27/18 07/08/18 Unknown donepezil 5 mg PO DAILY 05/27/18 07/08/18 Unknown folic acid 2 mg PO QPM 05/27/18 07/08/18 Unknown levothyroxine [Synthroid] 25 mcg PO DAILY 05/27/18 07/08/18 Unknown lisinopril 10 mg PO DAILY 05/27/18 07/08/18 Unknown meloxicam 15 mg PO DAILY 05/27/18 07/08/18 Unknown solifenacin [Vesicare] 10 mg PO QPM 05/27/18 07/08/18 Unknown vortioxetine [Trintellix] 20 mg PO DAILY 05/27/18 07/08/18 Unknown cholecalciferol (vitamin D3) 1,000 unit PO DAILY 07/08/18 07/08/18 Unknown [Vitamin D3] hydroxychloroquine 400 mg PO DAILY 07/08/18 07/08/18 Unknown dnzcksyc-ynwo-DM-calcium-mins 1 tab PO QAM 07/08/18 07/08/18 Unknown [One-A-Day Women's Petites] oxycodone 5 mg PO DIRECTED PRN 07/08/18 07/08/18 Unknown venlafaxine 300 mg PO QAM 07/08/18 07/08/18 Unknown Active Medications Generic Name Dose Route Start Last Admin Trade Name Freq PRN Reason Stop Dose Admin Sodium Chloride 1,000 mls @ 125 mls/hr 07/08/18 11:00 07/08/18 16:14 Nss 1000ml IV 08/07/18 10:59 125 mls/hr .Q8H CHARISSE Administration Past Medical History Medical History Overactive bladder Anxiety Depression Hypothyroid HTN (hypertension) Alzheimers disease (Chronic) Arthritis (Chronic) Anemia Past Family History Family History Mother CVA (cerebrovascular accident due to intracerebral hemorrhage) Father CVA (cerebral vascular accident) Past Surgical History Surgical History H/O knee surgery (Resolved) Social History Smoking Status: Former smoker tobacco type: cigarettes Do You Dip or Chew Tobacco: No Smoking End Date: 2011 Hx Alcohol Use: No Hx Substance Use: No Physical Exam Vital Signs Last Vital Signs Temp 36.7 C 07/08/18 10:22 Pulse 82 07/08/18 10:22 Resp 18 07/08/18 10:22 BP 150/75 H 07/08/18 10:22 Pulse Ox 98 07/08/18 11:12 Testing Electrocardiogram Date: 07/08/18 Findings: + NSR @ (74) Laboratory Results 07/08/18 10:50 07/08/18 10:50 Urine Color Yellow 07/08/18 13:30 Urine Appearance Clear (Clear) 07/08/18 13:30 Urine pH 5.0 (4.5-7.5) 07/08/18 13:30 Ur Specific [place] 1.019 (1.000-1.030) 07/08/18 13:30 Urine Protein Negative (Negative) 07/08/18 13:30 Urine Glucose (UA) Negative (Negative) 07/08/18 13:30 Urine Ketones Negative (Negative) 07/08/18 13:30 Urine Nitrite Negative (Negative) 07/08/18 13:30 Ur Leukocyte Esterase Negative (Negative) 07/08/18 13:30 07/08/18 11:23 POC Glucose (other) 92
[2018-07-08] MEDS ORDERED: Nursing to Pharmacy Communication ONE (17:00)
[2018-07-08] MEDS: HYDROmorphone INJ 0.5 MG/0.5 ML SYR IV PRN (17:28)
[2018-07-08] MEDS: HYDROXYCHLOROQUINE SULFATE 200 MG TAB PO SCH (17:59)
--- NOTE | 2018-07-08 18:16 | CT Scan Report ---
CT SCAN OF THE LEFT FEMUR WITHOUT IV CONTRAST CLINICAL HISTORY: Left femoral fracture. COMPARISON STUDY: Radiographs of the left femur dated 07/08/2018. TECHNIQUE: CT scan of the left femur is performed from the bony pelvis to the proximal tibia and fibu la. Images are reviewed in the axial, sagittal, and coronal planes. IV contrast was not administered for this examination. A dose lowering technique was utilized adhering to the principles of ALARA. The examination is degraded by streak artifact from a left knee arthroplasty. FINDINGS: The skeletal structures are osteopenic. The visualized left hemipelvis appears intact. A le ft iliac bolt is partially visualized. The proximal left femur as well as the proximal to mid portion s of the left femoral diaphysis are intact. There is a comminuted fracture of the distal femoral diap hysis which extends to a left knee arthroplasty. There are numerous distracted fragments. There is me dial distraction of the largest distal fragment by at least 2.5 cm, as well as overriding of the larg est fragments by approximately 5 cm. There is apex volar angulation of the fracture just above the kn ee arthroplasty. The proximal tibia and fibula appear intact. There has been undersurface remodeling of the patella. Hemorrhage is identified around the fracture site, with trace hemorrhage seen within the lateral soft tissues tracking along the myofascial bundles. No large intramuscular hematoma is id entified. IMPRESSION: 1. There is a distracted, comminuted, overriding, and angulated fracture of the distal femoral shaft which extends to a left knee arthroplasty as detailed above. 2. Assessment of the fracture is degraded by streak artifact from a left knee arthroplasty 3. No additional fracture is identified. The proximal femur and visualized left hemipelvis appear int act. 4. Hemorrhage is identified around the fracture. No large hematoma is identified. Electronically signed by: Khoa Fletcher M.D. 07/08/2018 6:14 PM
--- NOTE | 2018-07-08 18:21 | Consultation Report ---
DATE OF ADMISSION: 07/08/2018 CHIEF COMPLAINT: Left femur pain. HISTORY: Divya is delightful meeting her for the first time. She is 72. She has a periprosthetic femur fracture, a fracture above a total knee arthroplasty. PAST MEDICAL HISTORY: Positive for depression, hypothyroidism. She actually was diagnosed with Alzheimer disease a few months ago. Hypertension, arthritis. PAST SURGICAL HISTORY: Includes a total knee replacement bilaterally. FAMILY HISTORY: Mother with a CVA. Father with a CVA. SOCIAL HISTORY: Nonsmoker, nonalcohol user, no substance abuser. She denied any blurred vision, double vision, tinnitus, or vertigo. There is no apparent chest pain or shortness of breath. No nausea, vomiting. Her orthopedic musculoskeletal issue seen to be #1 with the left femur pain. OBJECTIVE: GENERAL: She is alert, oriented. She seems oriented to us here today. VITAL SIGNS: Stable. HEART: Her heart rate was regular. EXTREMITY: Her left lower extremity was intact. Appropriately aligned, no breakdown of skin, no warmth or erythema, or edema. Good pulses. Should check her pulses. X-RAYS: Her x-rays reviewed demonstrating a periprosthetic fracture on the left. IMPRESSION: Periprosthetic fracture, left femur above a total knee replacement. PLAN: Includes instruction, precautions, and admission to the medical service. She is being preoped for surgery. Optimistically, Dr. Jalloh will get to her surgery tomorrow around 1:00 p.m. We will keep her n.p.o. after midnight.
[2018-07-08] MEDS: OXYCODONE/ACETAMINOPHEN 5mg/325mg TAB PO PRN (22:01)
[2018-07-08] MEDS: VESICARE 10 MG PO SCH (22:03)
[2018-07-08] MEDS: CEVIMELINE 30 MG PO SCH (22:04)
[2018-07-09] MEDS: SODIUM CHLORIDE 0.9% 1000ML 1,000 ML IV SCH ×4 (00:46→21:58)
[2018-07-09] MEDS: clonazePAM 1 MG TAB PO PRN ×2 (03:23→20:26)
[2018-07-09] MEDS: OXYCODONE/ACETAMINOPHEN 5mg/325mg TAB PO PRN ×3 (03:23→20:22)
[2018-07-09] MEDS: LEVOTHYROXINE SODIUM 25 MCG TABLET PO SCH (05:36)
[2018-07-09 07:24] LABS: BUN Creatinine Ratio 18.8 (10-20); Calcium 8.3 mg/dl (8.5-10.1); Creatinine Clr Calc Pharmacy 54.5 ml/min; Est GFR (African American) 72.6; Est GFR (Non-African American) 62.6; Potassium 4.7 mmol/L (3.5-5.1)
--- NOTE | 2018-07-09 07:56 | History & Physical Bridge Note ---
Date of Service July 09, 2018 History & Physical Bridge Note I have examined the patient, reviewed the History & Physical and in the interval since the performance of the History & Physical I have noted the following changes of clinical significance: no changes noted
[2018-07-09 08:05] LABS: Basophils # (auto) 0.02 K/uL (0-0.2); Basophils % (auto) 0.2 %; Eosinophils # (auto) 0.01 K/uL (0-0.5); Eosinophils % (auto) 0.1 %; Hemoglobin 9.3 g/dL (12.0-16.0); Immature Granulocytes # (auto) 0.03 K/uL (0.00-0.02); Immature Granulocytes % (auto) 0.3 %; Lymphocytes # (auto) 2.35 K/uL (1.2-3.4); Lymphocytes % (auto) 26.1 %; Mean Corpuscular Hgb Conc 33.2 g/dL (32-36); Mean Corpuscular Volume 95.9 fL (80-100); Mean Platelet Volume 10.8 fL (7.4-10.4); Monocytes # (auto) 1.04 K/uL (0.11-0.59); Monocytes % (auto) 11.5 %; Neutrophils # (auto) 5.57 K/uL (1.4-6.5); Neutrophils % (auto) 61.8 %; Platelet Count 163 K/uL (130-400); RDW Standard Deviation 48.5 fL (36.4-46.3); Red Blood Count 2.92 M/uL (4.2-5.4); White Blood Count 9.02 K/uL (4.8-10.8)
--- NOTE | 2018-07-09 08:14 | Hospitalist Progress Note ---
Date of Service July 09, 2018 Assessment & Plan (1) Femur fracture, left: 07/09/18 13:00 p Left Distal Femur Fracture Retrograde IM Nail Surgeon: Alan Jalloh PT/OT Likely need rehab (2) HTN (hypertension): lisinopril cautiously (3) Acute blood loss anemia: hgb dropped to 9.3 gms still no need for transfusion (4) Hypothyroid: clinically stable on replacement low dose synthroid 25 mcg (5) Depression: buproprion, clonazepam (6) Dementia: Dx in May, issues with owning on aricept (7) Anxiety: continue home meds (8) Overactive bladder: vesicare (9) DVT prophylaxis: As per ortho (10) Fall: Ongoing balance issues Purely mechanical PT/OT Subjective Patient was seen preoperatively she is having no chest pain pressure shortness of breath. She is apprehensive about the upcoming procedure. She has some shortening and rotation of her leg due to hip fracture however she has good distal sensation capillary refill and ability to move her toes Review of Systems ROS: well nourished well developed. No double vision blurry vision No problems with speech or swallowing No palpitations, chest pain or pressure No Wheezing or breathing issues No abdominal pain nausea vomiting diarrhea changes in appetite or weight No burning urine urine frequency or changes in color Does have a focal left leg pain No skin rashes or oral lesions Some lateral hip bruising No focused back pain or numbness or loss of strength No changes in memory or confusion Physical Exam 2 Vital Signs (Past 24 Hours): Last Vital Signs Temp 37.8 C H 07/09/18 08:07 Pulse 74 07/09/18 08:07 Resp 14 07/09/18 08:07 BP 138/74 07/09/18 08:07 Pulse Ox 97 07/09/18 08:07 The patient appeared well nourished and normally developed. Vital signs as documented. Head exam is unremarkable. normocephalic, atraumatic Neck is without jugular venous distension, thyromegaly, or lymphademopathy Lungs are clear to auscultation and percussion. Cardiac exam reveals Rhythm is regular. First and second heart sounds normal. Abdominal exam reveals normal bowel sounds, no masses, no organomegaly Extremities are nonedematous and both pedal pulses are present Neurologic exam is A&Ox3, no focal deficits, strength is equal bilateral Psychologically seems neither anxious or depressed Skin is warm Dry
--- NOTE | 2018-07-09 08:18 | Progress Note ---
DATE: 07/09/2018 SUBJECTIVE: A 72-year-old white female admitted with a left periprosthetic femur fracture after a fall. She denies any other complaints. She is anxious to get her femur fixed. She had no problems with her knee replaced until this fall. The exact etiology of her loss of balance is unclear. No other complaints. Isolated left femur pain. OBJECTIVE: VITAL SIGNS: Temperature is 37.4. Vital signs stable. GENERAL: Reveals a pleasant elderly female. She is lying in bed. She is awake, alert and oriented and completely appropriate. EXTREMITIES: Examination of left lower extremity reveals the immobilizer to be in place. There is some slight deformity to her leg. Some moderate swelling. No blistering. Incisions are well healed. She can dorsiflex and plantarflex her foot appropriately. She is neurologically intact. LABORATORY DATA: Labs are pending. ASSESSMENT: A 72-year-old female with left periprosthetic femur fracture. It is fairly comminuted fracture above a well-fixed knee replacement. PLAN: The patient has been admitted and medically optimized. Plan on taking him to the Operating Room and do an open reduction internal fixation, retrograde IM nailing of this periprosthetic femur fracture. There is an outside chance that if it is too comminuted, we may have to come back and do a hinged knee replacement, but I think that is unlikely. The risks and benefits of ORIF and IM nailing were explained to the patient including but not limited to DVT, PE, , infection, neurological injury, vascular injury, bleeding problem, pain, limited range of motion, stiffness, nonunion, malunion, need for further surgery. The patient understands and desires to proceed. Informed consent was obtained. Plan on doing this later on this afternoon. In the meantime, we will continue DVT prophylaxis, TEDs and SCDs and likely use aspirin postop.
[2018-07-09] MEDS: BuPROPion XL 150 MG TABCR PO SCH (08:33)
[2018-07-09] MEDS: CHOLECALCIFEROL 1,000 UNITS TAB PO SCH (08:33)
[2018-07-09] MEDS: MELOXICAM 7.5 MG TAB PO SCH (08:33)
[2018-07-09] MEDS: VENLAFAXINE HCL XR 150 MG CAPXR PO SCH (08:33)
[2018-07-09] MEDS: LISINOPRIL 10 MG TAB PO SCH (08:33)
[2018-07-09] MEDS: DONEPEZIL HCL 5 MG TAB PO SCH (08:33)
[2018-07-09] MEDS: CEVIMELINE 30 MG PO SCH ×3 (08:34→20:21)
[2018-07-09] MEDS: VORTIOXETINE HYDROBROMIDE PO SCH (08:34)
[2018-07-09] MEDS ORDERED: HYDROXYCHLOROQUINE SULFATE 200 MG TAB PO SCH (09:00)
[2018-07-09] MEDS ORDERED: MIDAZOLAM HCL 1 MG/ML 2ML VIAL ONE (11:42)
[2018-07-09] MEDS ORDERED: fentaNYL citrate 100 MCG/2 ML VIAL ONE ×3 (11:42→15:37)
[2018-07-09] MEDS ORDERED: PROPOFOL IV EMULSION 10 MG/ML 20 ML VIAL IV ONE (11:42)
[2018-07-09] MEDS ORDERED: LIDOCAINE HCL 2% 2 ML VIAL/AMP(20MG/ML) INFIL ONE (11:42)
[2018-07-09] MEDS: HYDROmorphone INJ 0.5 MG/0.5 ML SYR IV PRN (11:50)
[2018-07-09] MEDS ORDERED: BUPIVACAINE 0.5 % 5 MG/1 ML PF 10ML VIAL ONE (12:54)
[2018-07-09] MEDS ORDERED: BUPIVACAINE 0.25% 30 ML VIAL ONE (12:59)
[2018-07-09] MEDS ORDERED: BACITRACIN INJ 50,000 UNIT VIAL ONE (13:00)
[2018-07-09] MEDS ORDERED: BUPIVACAINE LIPOSOME 1.3% 266 MG/20 ML VIAL ONE (13:00)
[2018-07-09] MEDS ORDERED: SODIUM CHLORIDE 0.9% INJ 10 ML VIAL ONE (13:01)
[2018-07-09] MEDS ORDERED: EpINEphrine HCL INJ 1 MG/ML 1ML SYRINGE ONE (13:02)
[2018-07-09] MEDS ORDERED: ONDANSETRON INJ 2 MG/ML 2 ML VIAL ONE (13:06)
[2018-07-09] MEDS ORDERED: ROCURONIUM BROMIDE 10 MG/ML 5 ML VIAL ONE (13:06)
[2018-07-09] MEDS ORDERED: BUPIVACAINE/EPINEPHRINE 0.5% MPF 1:200,000 30 ML VIAL ONE (13:08)
[2018-07-09] MEDS ORDERED: CEFAZOLIN 2,000 MG/15 ML IV PUSH IV ONE (13:11)
[2018-07-09] MEDS ORDERED: ONDANSETRON INJ 2 MG/ML 2 ML VIAL IV PRN (13:32)
[2018-07-09] MEDS ORDERED: fentaNYL citrate 100 MCG/2 ML VIAL IV PRN (13:32)
[2018-07-09] MEDS ORDERED: ePHEDrine sulfate 50 MG/ML AMP IV PRN (13:32)
[2018-07-09] MEDS ORDERED: ATROPINE SULFATE 0.1 MG/ML 10ML SYR IV PRN (13:32)
[2018-07-09] MEDS ORDERED: NEOSTIGMINE METHYLSULFATE 5 MG/5 ML SYR ONE (15:16)
[2018-07-09] MEDS ORDERED: GLYCOPYRROLATE 0.2 MG/ML VIAL ONE (15:16)
[2018-07-09] MEDS ORDERED: METOPROLOL TARTRATE 1 MG/ML VIAL IV ONE (15:45)
--- NOTE | 2018-07-09 15:56 | Post Operative Brief Note ---
Immediate Post Op Note v1 Date of Surgery July 09, 2018 Pre & Post Diagnosis Operation Date: 07/09/18 13:00 Pre-Op Diagnosis: Periprosthetic fracture, left femur above a total knee replacement Post-Op Diagnosis: Periprosthetic fracture, left femur above a total knee replacement Procedure Operation Date: 07/09/18 13:00 Actual Procedures p Left Distal Femur Fracture Retrograde IM Nail(Left) - Alan Jalloh MD Surgeon Alan Jalloh MD [employer] Deric, PAC Estimated Blood Loss 300 Findings Consistent with Post-Op Diagnosis Fluids 1200 cc Anesthesia Type General Complications none Disposition Accompanied Patient To Recovery: Yes Disposition: Recovery Room
--- NOTE | 2018-07-09 15:57 | Fluoroscopy Report ---
FL femur LT 2V CLINICAL HISTORY: LEFT DISTAL FEMUR FRACTURE RETROGRADE IM NAIL COMPARISON STUDY: 07/08/2018 FLUOROSCOPY TIME: 1 minute 1 second NUMBER OF FLUOROSCOPIC IMAGES: 7 FINDINGS: Placement of an intramedullary nicki traversing an oblique fracture of the distal femur. Ther e is moderate improvement in alignment. There is a pre-existing total left knee arthroplasty. There is been placement of several transverse screws of the distal femur. There continues be angulati on of the distal femur in relation to the proximal shaft. IMPRESSION: Findings consistent with intramedullary nicki placement with position as noted The above report was generated using voice recognition software. It may contain grammatical, syntax or spelling errors. Electronically signed by: Eric Perez M.D. 07/09/2018 3:56 PM
--- NOTE | 2018-07-09 16:36 | Anesthesiology Progress Note ---
Date of Service July 09, 2018 Anesthesia Post Procedure Vital Signs Vital Signs: Temp Pulse Pulse Pulse Resp BP BP 07/09/18 16:20 98 H 19 128/62 07/09/18 16:10 100 H 21 120/63 07/09/18 16:01 36.5 C 101 H 23 127/63 07/09/18 13:05 37.4 C 95 H 18 145/70 H 07/09/18 08:07 37.8 C H 74 14 138/74 07/08/18 22:45 37.4 C 91 H 18 133/79 Pulse Ox 07/09/18 16:20 100 07/09/18 16:10 100 07/09/18 16:01 100 07/09/18 13:05 97 07/09/18 08:07 97 07/08/18 22:45 96 Pain Intensity Left Leg: Pain Intensity: 8 Notes Mental Status: alert / awake / arousable and participated in evaluation Patient Amnestic to Procedure: Yes Nausea / Vomiting: adequately controlled Pain: adequately controlled Airway Patency, RR, SpO2: stable & adequate BP & HR: stable & adequate Hydration State: stable & adequate Anesthetic Complications: no major complications apparent and Pt Satisfied with anesthetic care Notes: Patient�s HR was tachycardic in PACU. Was given metoprolol. HR back to preoperative baseline after metoprolol. (Pt�s HR was 95 to 101 in Preop and was in the 90s overnight on the floor and was 95 at the time of writing this note in PACU). Pt denies pain or nausea and other vital signs are stable and appropriate. Ok to return to the floor.
[2018-07-09] MEDS ORDERED: BISACODYL 10 MG SUPP PR PRN (16:56)
[2018-07-09] MEDS ORDERED: MAGNESIUM HYDROXIDE SUSP 30 ML UDC PO PRN (16:56)
[2018-07-09] MEDS ORDERED: ALUMINUM/MAGNESIUM SUSP 30 ML UDC PO PRN (16:56)
[2018-07-09] MEDS: HYDROXYCHLOROQUINE SULFATE 200 MG TAB PO SCH (18:03)
[2018-07-09] MEDS: FERROUS GLUCONATE 324 MG TAB PO SCH (18:06)
[2018-07-09] MEDS: CEFAZOLIN 1000MG 1,000 MG/7.5 ML SYR IV SCH (20:20)
[2018-07-09] MEDS: FOLIC ACID 1 MG TAB PO SCH (20:20)
[2018-07-09] MEDS: DOCUSATE SODIUM 100 MG CAP PO SCH (20:20)
[2018-07-09] MEDS: ASPIRIN 81 MG ECTAB PO SCH (20:20)
[2018-07-09] MEDS: VESICARE 10 MG PO SCH (20:22)
--- NOTE | 2018-07-10 00:21 | Operative Report ---
DATE OF OPERATION: 07/09/2018 SURGEON: Alan Jalloh MD EMPLOYMENT COACH: MELISSA Farah PREOPERATIVE DIAGNOSIS: Left distal comminuted periprosthetic femur fracture above a total knee replacement. POSTOPERATIVE DIAGNOSIS: Same. PROCEDURE PERFORMED: Left femur retrograde IM nailing. COMPLICATIONS: None. ESTIMATED BLOOD LOSS: 300 mL. FLUID REPLACEMENT: 1200 mL crystalloid fluid replacement. ANESTHESIA: General. SPECIMENS: None. OPERATIVE INDICATIONS: The patient is a 72-year-old female who is about 5 years out from bilateral knee replacements done by Dr. Perez. She has had multiple falls recently of unclear etiology. She sustained a fall yesterday. She had acute onset of pain and deformity. She was brought to the Emergency Room with x-ray of the left periprosthetic comminuted femur fracture. It was markedly displaced. The patient was admitted to the hospital and indicated for surgical treatment. OPERATIVE FINDINGS: Operative findings revealed a markedly comminuted distal femur fracture. It went down to include the periprosthetic components. The femoral component itself was well fixed to the bone surrounding it, although there was a fairly small shell of bone and it was markedly comminuted. After extensive consideration, we elected to try and fix this with a retrograde nail as I thought this was the most likely construct to provide stability and healing. The patient was medically optimized and indicated for surgical treatment. OPERATIVE IMPLANTS: Operative implants consisted of, 1. Synthes 300 x 12 mm retrograde nail. 2. A 5.0 proximal locking screw of 42 mm length. 3. A 5.0 x 52 mm distal interlocking screw. 4. A 70-mm distal helical blade. 5. A Synthes titanium locking end cap. OPERATIVE PROCEDURE: The patient was taken to the operating room, identified and placed on the operating table in supine position. All contact areas were appropriately padded. IV antibiotics were provided by anesthesia team. A general anesthetic was implemented by anesthesia team. A bump was placed underneath the left hip. X-ray was brought in to make sure we could get adequate x-rays. The left lower extremity was then scrubbed with Hibiclens and then prepped with ChloraPrep and then draped in the usual sterile fashion. An anterior approach to the left knee was then performed through a longitudinal incision using the previous total knee incision and extending this just slightly superiorly. Sharp dissection was carried through subcutaneous tissue down to level of the extensor mechanism. The medial parapatellar arthrotomy incision was made. The patella was subluxated laterally. I did resect some of the scar tissues around the patella and the patellar tendon to allow the patella to be subluxated laterally without any tension. I then slightly flexed the knee. I opened the fracture site and reduced the fracture into a near anatomic position. There was marked comminution and we did not disturb any of this comminution or strip it at all. Once we got this lined up, this was verified fluoroscopically. I then placed a guidewire through the intercondylar notch of the implant and in the central aspect of the femoral canal. I tried to make this as far anterior in order to allow as good a bone purchase as possible. I then over reamed this with a 13-mm reamer for a distance of 5 cm. This guidewire was then removed and a ball-tipped guidewire was placed. We measured for nail length and a 300 mm nail was selected. I then overreamed the guidewire up to a size 13. A 12 x 300 mm nail was selected and placed over the guidewire and the guidewire was removed. This did force the knee. We placed it into a slight bit of valgus and we tried to fix this as best as possible and we optimized this, although it was not perfect. The lateral aiming arm x-ray was obtained. I tried to leave this as distal as possible in order to get as much purchase as possible. I also tried to leave this just abutting the implant to provide some additional stability. The lateral aiming arm was placed. A stab incision was made laterally and the distal interlocking devices were advanced to the lateral aspect of the femur. The proximal and distal interlocking screw was placed first followed by the helical blade in a standard fashion. This did provide good fixation distally. The locking screw was then placed into the IM nail through the intercondylar notch area. The nail was just recessed below the tibial post which was felt to be optimal. This did provide nice stability along the fracture site and attention was then drawn to proximal interlocking. Perfect circles were obtained in the dynamic hole proximally. A stab incision was made and blunt dissection was carried down to the femur. A proximal interlocking screw was then placed in the standard fashion using the perfect [place] technique. Some final x-rays were obtained. The knee was taken through range of motion and the fracture appeared markedly stable considering the comminution. Attention was then drawn toward closing. The wound was irrigated with copious amounts of pulsatile lavage solution. I did inject locally with 60 mL of 0.5% Marcaine with epinephrine. The extensor mechanism was then closed with a combination of #1 PDS suture and #1 Vicryl suture in a [id number] fashion. The IT band was closed with 0 Vicryl suture in a [id number] fashion. The subcutaneous tissues of all wounds were then closed with 2-0 Dexon suture in a buried interrupted fashion. The skin was then closed with skin elen. The leg was then cleaned and dried and a sterile dressing of Xeroform, 4 x 4, sterile cast padding, Franklyn bandage, and a knee immobilizer applied. The patient was then brought out of general anesthesia and transferred to the recovery room in stable condition. The patient tolerated the procedure well with no complications. All needle and sponge counts were correct at the end of the operation. I attest to the content of the Intraoperative Record and any orders documented therein. Any exception s are noted below.
[2018-07-10] MEDS: ACETAMINOPHEN 325 MG TAB PO PRN ×3 (03:42→16:33)
[2018-07-10] MEDS: CEFAZOLIN 1000MG 1,000 MG/7.5 ML SYR IV SCH (04:44)
[2018-07-10] MEDS: SODIUM CHLORIDE 0.9% 1000ML 1,000 ML IV SCH ×2 (06:00→22:57)
[2018-07-10] MEDS: LEVOTHYROXINE SODIUM 25 MCG TABLET PO SCH (06:00)
--- NOTE | 2018-07-10 08:04 | Progress Note ---
DATE: 07/10/2018 SUBJECTIVE: A 72-year-old white female postop day 1 from open reduction internal fixation and IM nailing of a left periprosthetic femur fracture. She is doing pretty well. Pain is improved. She is awake, alert and oriented. Denies any other pains. No chest pain or shortness of breath. Not feeling dizzy or lightheaded. OBJECTIVE: VITAL SIGNS: Temperature 38.0. Vital signs stable. GENERAL: Physical examination reveals a pleasant elderly female who is lying in bed, looks pretty comfortable. EXTREMITIES: Examination of the left leg reveals the leg to be well aligned. Dressing is clean, dry and intact. She can slightly flex and extend her toes. She has got brisk refill. LABORATORY DATA: Hemoglobin 9.3. Hematocrit 28.0. Electrolytes are stable. ASSESSMENT: A 72-year-old white female postop day 1 from open reduction internal fixation, IM nailing of a left comminuted periprosthetic femur fracture, doing pretty well. Pain is improved. Neurologically, she seems stable. PLAN: 1. DVT prophylaxis including thigh-high TEDs, SCDs, and aspirin twice a day. I think she is too high of a fall risk for more aggressive anticoagulation. 2. PT/OT. She is going to be partial weightbearing in the left leg for the next 4 weeks. We are going to just keep her knee immobilized for 2 weeks and let the wound heal. We are going to do no knee range of motion. She can do quad sets and straight leg raises. 3. Medical management as per the medicine service. 4. Disposition: Family is hoping she will go to rehab. She has been to [facility] before. We will have social service looking into this.
[2018-07-10] MEDS: DONEPEZIL HCL 5 MG TAB PO SCH (08:47)
[2018-07-10] MEDS: CEVIMELINE 30 MG PO SCH ×3 (08:48→20:56)
[2018-07-10] MEDS: MELOXICAM 7.5 MG TAB PO SCH (08:49)
[2018-07-10] MEDS: CEROVITE ADV FORMULA TAB PO SCH (08:49)
[2018-07-10] MEDS: LISINOPRIL 10 MG TAB PO SCH (08:49)
[2018-07-10] MEDS: BuPROPion XL 150 MG TABCR PO SCH (08:49)
[2018-07-10] MEDS: ASPIRIN 81 MG ECTAB PO SCH ×2 (08:50→20:58)
[2018-07-10] MEDS: CHOLECALCIFEROL 1,000 UNITS TAB PO SCH (08:50)
[2018-07-10] MEDS: VENLAFAXINE HCL XR 150 MG CAPXR PO SCH (08:50)
[2018-07-10] MEDS: FERROUS GLUCONATE 324 MG TAB PO SCH ×2 (08:50→16:35)
[2018-07-10] MEDS: MULTIVITAMIN TAB PO SCH (08:50)
[2018-07-10] MEDS: DOCUSATE SODIUM 100 MG CAP PO SCH ×2 (08:50→20:57)
[2018-07-10] MEDS: OXYCODONE/ACETAMINOPHEN 5mg/325mg TAB PO PRN ×2 (08:53→14:51)
[2018-07-10 10:05] LABS: Hematocrit (blood only) 17.3 % (37-47); Hemoglobin 5.6 g/dL (12.0-16.0); Mean Corpuscular Hgb Conc 32.4 g/dL (32-36); Mean Corpuscular Volume 96.1 fL (80-100); Platelet Count 121 K/uL (130-400); RDW Coefficient of Variation 14.1 % (11.5-14.5); RDW Standard Deviation 49.3 fL (36.4-46.3); White Blood Count 9.24 K/uL (4.8-10.8)
[2018-07-10 10:16] LABS: Basophils # (auto) 0.02 K/uL (0-0.2); Basophils % (auto) 0.2 %; Eosinophils # (auto) 0.01 K/uL (0-0.5); Eosinophils % (auto) 0.1 %; Immature Granulocytes # (auto) 0.02 K/uL (0.00-0.02); Immature Granulocytes % (auto) 0.2 %; Lymphocytes # (auto) 1.61 K/uL (1.2-3.4); Lymphocytes % (auto) 17.4 %; Monocytes % (auto) 16.2 %; Neutrophils # (auto) 6.08 K/uL (1.4-6.5); Neutrophils % (auto) 65.9 %; RBC Morphology Unremarkable
[2018-07-10] MEDS ORDERED: SODIUM CHLORIDE 0.9% 250 ML IV PRN (10:17)
[2018-07-10 10:24] LABS: Calcium 7.5 mg/dl (8.5-10.1); Creatinine Clr Calc Pharmacy 46.4 ml/min; Est GFR (African American) 59.8; Est GFR (Non-African American) 51.6; Potassium 3.9 mmol/L (3.5-5.1)
--- NOTE | 2018-07-10 12:21 | Hospitalist Progress Note ---
Date of Service July 10, 2018 Assessment & Plan (1) Femur fracture, left: 07/09/18 13:00 Left Distal Femur Fracture Retrograde IM Nail Surgeon: Alan Jalloh PT/OT Likely need rehab pt is considering [facility] acute rehab (2) Fever: there are no localizing signs (3) HTN (hypertension): lisinopril cautiously (4) Acute blood loss anemia: hgb dropped to 9.3 gms still no need for transfusion (5) Hypothyroid: clinically stable on replacement low dose synthroid 25 mcg (6) Depression: buproprion, clonazepam (7) Dementia: Dx in May, issues with owning on aricept (8) Anxiety: continue home meds (9) Overactive bladder: vesicare (10) DVT prophylaxis: As per ortho (11) Fall: Ongoing balance issues Purely mechanical PT/OT Subjective Pt was seen post operatively and despite having a low grade temperature, does not have any localizing complaints, does not have a young but will check a ua, acceptable pain control and good distal sensation and warmth to right foot Review of Systems ROS: well nourished well developed. No double vision blurry vision No problems with speech or swallowing No palpitations, chest pain or pressure No Wheezing or breathing issues No abdominal pain nausea vomiting diarrhea changes in appetite or weight No burning urine urine frequency or changes in color some pain at surgical site No skin rashes or oral lesions No unusual bruising or bleeding No focused back pain or numbness No changes in memory or confusion Physical Exam 2 Vital Signs (Past 24 Hours): Last Vital Signs Temp 37.3 C 07/10/18 11:55 Pulse 98 H 07/10/18 11:55 Resp 16 07/10/18 11:55 BP 104/66 07/10/18 11:55 Pulse Ox 92 07/10/18 11:55 Constitutional: well developed and average body habitus Eyes: no conjunctival abnormality and no scleral abnormality Neck: normal visual inspection and trachea midline Respiratory: normal respiratory effort; no respiratory distress Auscultation: lungs clear to auscultation bilaterally Cardiovascular: RRR, no murmur, no edema Gastrointestinal (Abdomen): normal bowel sounds, soft, nontender, no hepatosplenomegaly Neurologic: normal touch/pain/proprioception
[2018-07-10] MEDS: HYDROXYCHLOROQUINE SULFATE 200 MG TAB PO SCH (16:34)
[2018-07-10] MEDS: VESICARE 10 MG PO SCH (20:55)
[2018-07-10] MEDS: OXYCODONE HCL IR 5 MG TAB (IMMEDIATE RELEASE) PO PRN (20:56)
[2018-07-10] MEDS: clonazePAM 1 MG TAB PO PRN (20:57)
[2018-07-10] MEDS: FOLIC ACID 1 MG TAB PO SCH (20:58)
[2018-07-11] MEDS: OXYCODONE HCL IR 5 MG TAB (IMMEDIATE RELEASE) PO PRN ×2 (05:51→13:54)
[2018-07-11] MEDS: LEVOTHYROXINE SODIUM 25 MCG TABLET PO SCH (05:51)
[2018-07-11] MEDS: SODIUM CHLORIDE 0.9% 1000ML 1,000 ML IV SCH ×3 (06:16→21:08)
[2018-07-11 06:44] LABS: Hematocrit (blood only) 25.8 % (37-47); Mean Corpuscular Hgb Conc 34.9 g/dL (32-36); Mean Corpuscular Volume 91.8 fL (80-100); Mean Platelet Volume 9.7 fL (7.4-10.4); Platelet Count 124 K/uL (130-400); RDW Coefficient of Variation 15.2 % (11.5-14.5); Red Blood Count 2.81 M/uL (4.2-5.4); White Blood Count 8.33 K/uL (4.8-10.8)
[2018-07-11 06:56] LABS: BUN Creatinine Ratio 14.3 (10-20); Calcium 7.9 mg/dl (8.5-10.1); Creatinine Clr Calc Pharmacy 64.3 ml/min; Est GFR (African American) 88.6; Est GFR (Non-African American) 76.5; Potassium 3.7 mmol/L (3.5-5.1)
[2018-07-11] MEDS: ACETAMINOPHEN 325 MG TAB PO PRN ×2 (07:44→17:59)
--- NOTE | 2018-07-11 08:30 | Progress Note ---
DATE: 07/11/2018 SUBJECTIVE: A 72-year-old white female postop day 2 from ORIF of left periprosthetic femur fracture above a knee replacement. She is doing okay. Pain is reasonably well controlled. No new complaints. No chest pain or shortness of breath. OBJECTIVE: VITAL SIGNS: Temperature 37.5. Vital signs stable. GENERAL: Physical examination shows a pleasant elderly female. She is lying in bed, looks reasonably comfortable. EXTREMITIES: Examination of the left leg reveals the leg to be well aligned. Dressing is clean, dry and intact. She can slightly dorsiflex and plantarflex her foot. She has got brisk refill. LABORATORY DATA: Hemoglobin 9.0. Hematocrit 25.8. Electrolytes are stable. ASSESSMENT: A 72-year-old white female postop day 2 from IM nailing of a left periprosthetic femur fracture, doing reasonably well. Pain is controlled. She is neurologically stable. PLAN: 1. DVT prophylaxis including thigh-high TEDs, SCDs, and I would recommend just aspirin twice a day for the next month. 2. PT/OT. She can partial weightbear on the left leg, 50% maximum. Knee immobilizer at all times while weightbearing. We do not want to work on any knee motion. She can do quad sets and straight leg raises. 3. Medical management as per the medicine service. 4. Disposition: She is hoping to be discharged to rehab. She is hoping for [facility] stay if possible.
[2018-07-11] MEDS: CHOLECALCIFEROL 1,000 UNITS TAB PO SCH (08:44)
[2018-07-11] MEDS: DOCUSATE SODIUM 100 MG CAP PO SCH ×2 (08:44→21:01)
[2018-07-11] MEDS: VENLAFAXINE HCL XR 150 MG CAPXR PO SCH (08:45)
[2018-07-11] MEDS: BuPROPion XL 150 MG TABCR PO SCH (08:45)
[2018-07-11] MEDS: CEROVITE ADV FORMULA TAB PO SCH (08:45)
[2018-07-11] MEDS: MULTIVITAMIN TAB PO SCH (08:45)
[2018-07-11] MEDS: LISINOPRIL 10 MG TAB PO SCH (08:45)
[2018-07-11] MEDS: DONEPEZIL HCL 5 MG TAB PO SCH (08:46)
[2018-07-11] MEDS: ASPIRIN 81 MG ECTAB PO SCH ×2 (08:46→21:01)
[2018-07-11] MEDS: FERROUS GLUCONATE 324 MG TAB PO SCH ×2 (08:46→18:01)
[2018-07-11] MEDS: MELOXICAM 7.5 MG TAB PO SCH (08:47)
[2018-07-11] MEDS: VORTIOXETINE HYDROBROMIDE PO SCH (08:48)
[2018-07-11] MEDS: CEVIMELINE 30 MG PO SCH ×3 (08:48→21:02)
--- NOTE | 2018-07-11 14:06 | Hospitalist Progress Note ---
Date of Service July 11, 2018 Assessment & Plan (1) Femur fracture, left: 07/09/18 13:00 Left Distal Femur Fracture Retrograde IM Nail Surgeon: Alan Jalloh PT/OT Likely need rehab pt is considering [facility] acute rehab (2) Fever: there are no localizing signs, pending urine check encourage incentive sprimetry (3) HTN (hypertension): lisinopril cautiously (4) Acute blood loss anemia: hgb improved after transfusion (5) Hypothyroid: clinically stable on replacement low dose synthroid 25 mcg (6) Depression: seems euthymic on buproprion, clonazepam (7) Dementia: Dx in May, issues with doing well on aricept (8) Anxiety: does not seem to be an issue on medicaions (9) Overactive bladder: vesicare without complaints (10) DVT prophylaxis: As per ortho aspirin 81 mg bid (11) Fall: Ongoing balance issues Purely mechanical PT/OT Subjective Pt continues to not have any localizing complaints, does not have a young pending a ua, acceptable pain control and good distal sensation and warmth to right foot, did have good augmentation of hgb after transfusion Review of Systems ROS: well nourished well developed. No double vision blurry vision No problems with speech or swallowing No palpitations, chest pain or pressure No Wheezing or breathing issues No abdominal pain nausea vomiting diarrhea changes in appetite or weight No burning urine urine frequency or changes in color Consistent pain for post femur fracture she is a brace in place she has good distal sensation No skin rashes or oral lesions No unusual bruising or bleeding No focused back pain or numbness or loss of strength No changes in memory or confusion Physical Exam 2 Vital Signs (Past 24 Hours): Last Vital Signs Temp 37.9 C H 07/11/18 09:54 Pulse 100 H 07/11/18 08:25 Resp 20 07/11/18 08:25 BP 134/79 07/11/18 08:25 Pulse Ox 92 07/11/18 08:25 The patient appeared well nourished and normally developed. Vital signs as documented. Head exam is unremarkable. normocephalic, atraumatic Neck is without jugular venous distension, thyromegaly, or lymphademopathy Lungs are clear to auscultation and percussion. Cardiac exam reveals Rhythm is regular. First and second heart sounds normal. Abdominal exam reveals normal bowel sounds, no masses, no organomegaly Extremities are nonedematous and both pedal pulses are present good distal sensation and movement Neurologic exam is A&Ox3, no focal deficits, strength is equal bilateral Psychologically seems neither anxious or depressed Skin is warm Dry without bruises or lesions
[2018-07-11] MEDS: HYDROXYCHLOROQUINE SULFATE 200 MG TAB PO SCH (18:02)
[2018-07-11] MEDS: clonazePAM 1 MG TAB PO PRN (21:01)
[2018-07-11] MEDS: FOLIC ACID 1 MG TAB PO SCH (21:02)
[2018-07-11] MEDS: VESICARE 10 MG PO SCH (21:02)
[2018-07-12] MEDS: SODIUM CHLORIDE 0.9% 1000ML 1,000 ML IV SCH ×2 (05:00→13:06)
[2018-07-12] MEDS: LEVOTHYROXINE SODIUM 25 MCG TABLET PO SCH (05:56)
[2018-07-12 07:21] LABS: BUN Creatinine Ratio 13.2 (10-20); Calcium 7.7 mg/dl (8.5-10.1); Creatinine Clr Calc Pharmacy 78.3 ml/min; Est GFR (African American) 104.1; Est GFR (Non-African American) 89.8
[2018-07-12 07:45] LABS: Hematocrit (blood only) 22.6 % (37-47); Hemoglobin 7.7 g/dL (12.0-16.0); Mean Corpuscular Hgb Conc 34.1 g/dL (32-36); Mean Corpuscular Volume 92.2 fL (80-100); Mean Platelet Volume 9.7 fL (7.4-10.4); Platelet Count 140 K/uL (130-400); RDW Coefficient of Variation 15.1 % (11.5-14.5); RDW Standard Deviation 51.2 fL (36.4-46.3); Red Blood Count 2.45 M/uL (4.2-5.4)
[2018-07-12] MEDS: FERROUS GLUCONATE 324 MG TAB PO SCH ×2 (07:55→16:28)
[2018-07-12] MEDS: OXYCODONE HCL IR 5 MG TAB (IMMEDIATE RELEASE) PO PRN (07:55)
[2018-07-12] MEDS: ACETAMINOPHEN 325 MG TAB PO PRN ×2 (07:56→20:43)
[2018-07-12] MEDS: BuPROPion XL 150 MG TABCR PO SCH (08:01)
[2018-07-12] MEDS: CHOLECALCIFEROL 1,000 UNITS TAB PO SCH (08:01)
[2018-07-12] MEDS: CEROVITE ADV FORMULA TAB PO SCH (08:01)
[2018-07-12] MEDS: LISINOPRIL 10 MG TAB PO SCH (08:01)
[2018-07-12] MEDS: MULTIVITAMIN TAB PO SCH (08:01)
[2018-07-12] MEDS: MELOXICAM 7.5 MG TAB PO SCH (08:01)
[2018-07-12] MEDS: VENLAFAXINE HCL XR 150 MG CAPXR PO SCH (08:02)
[2018-07-12] MEDS: CEVIMELINE 30 MG PO SCH ×3 (08:02→20:44)
[2018-07-12] MEDS: DONEPEZIL HCL 5 MG TAB PO SCH (08:02)
[2018-07-12] MEDS: ASPIRIN 81 MG ECTAB PO SCH ×2 (08:02→20:44)
[2018-07-12] MEDS: DOCUSATE SODIUM 100 MG CAP PO SCH ×2 (08:02→20:44)
[2018-07-12] MEDS: ONDANSETRON INJ 2 MG/ML 2 ML VIAL IV PRN (08:13)
--- NOTE | 2018-07-12 09:01 | Progress Note ---
DATE: 07/12/2018 SUBJECTIVE: A 72-year-old female postop day 3 from open IM nailing of left periprosthetic femur fracture. She is doing better today as far as pain. No new complaints. No chest pain or shortness of breath. Not feeling dizzy or lightheaded. OBJECTIVE: VITAL SIGNS: Temperature 37.9. Vital signs stable. GENERAL: Physical examination shows a pleasant elderly female. She is lying in bed, looks reasonably comfortable. EXTREMITIES: Examination of the left leg reveals the leg to be well aligned. Her dressing is clean, dry and intact. She can dorsiflex and plantarflex her foot at baseline. She does have some weakness in this leg and has an AFO. LABORATORY DATA: Hemoglobin 7.7. Hematocrit 22.6. Electrolytes are stable. ASSESSMENT: A 72-year-old white female postop day 3 from open IM nailing and retrograde nailing of a left periprosthetic femur fracture, doing reasonably well. Pain seems to be improved. She is anemic, but really without symptoms. Blood pressure has been stable. PLAN: 1. DVT prophylaxis including thigh-high TEDs, SCDs, and aspirin twice a day. I think she is contraindicated for more aggressive anticoagulation due to fall risk. 2. PT and OT. She is 50% weightbearing of the left leg and the knee immobilizer. No knee range of motion for now. Can do quad sets and straight leg raises. 3. Anemia. Continue iron supplementation. Her vital signs seemed stable and as long as she is asymptomatic, I would recommend holding any further blood. 4. Medical management as per medicine service. 5. Disposition: She is orthopedically stable and acceptable for discharge any time medically stable. I need to see her back 2 weeks out from a surgery date. Any orthopedic questions can be directed to me at [phone].
--- NOTE | 2018-07-12 14:13 | XRay Report ---
XR chest 2V routine CLINICAL HISTORY: Suspected pneumonia COMPARISON STUDY: 07/08/2018 FINDINGS: There is extensive cervicothoracic spinal rodding. The heart is normal in size. There is ao rtic tortuosity. There is no failure. There is no focal pulmonary consolidation. There are no pleural effusions.[ IMPRESSION: No active disease in the chest. Electronically signed by: Booker Ching M.D. 07/12/2018 2:12 PM
[2018-07-12 14:55] LABS: Appearance Urine Clear (Clear); Bacteria Urine Automated Negative (Negative); Bilirubin Urine Negative (Negative); Color Urine Yellow; Glucose Urine UA Negative (Negative); Ketones Urine Negative (Negative); Leukocyte Esterase Urine Negative (Negative); Nitrite Urine Negative (Negative); Protein Urine Trace (Negative); Specific Gravity Urine 1.013 (1.000-1.030); Urobilinogen Urine Negative (Negative); pH Urine 5.5 (4.5-7.5)
--- NOTE | 2018-07-12 15:40 | Hospitalist Progress Note ---
Date of Service July 12, 2018 Assessment & Plan (1) Femur fracture, left: (2) Fever: (3) HTN (hypertension): (4) Acute blood loss anemia: (5) Hypothyroid: (6) Depression: (7) Dementia: (8) Anxiety: (9) Overactive bladder: (10) DVT prophylaxis: (11) Fall: 76-year-old white female admitted on July 08, 2018 because of left femur fracture, later developed fever postop, today still spiking fever up to 101 Femur fracture, left: 07/09/18 13:00 Left Distal Femur Fracture Retrograde IM Nail Surgeon: Alan Jalloh Per recommendation, DVT prophylaxis including thigh-high TEDs, SCDs, and aspirin twice a day. 50% weightbearing of the left leg and the knee immobilizer. No knee range of motion for now. Can do quad sets and straight leg raises. Has been having spiking fever fever no localizing signs, UA was sent, no UTI, chest x-ray was done no pneumonia, Is checking more with ESR, CRP, pro-calcitonin, blood culture, d-dimer, patient does not look toxic, infectious disease consultation if needed Likely acute blood loss anemia Continue iron supplementation. Hypertension hypothyroidism depression dementia anxiety, stable continue current medication DVT prophylaxis: As per ortho aspirin 81 mg bid Continue PT OT, pending for rehab, Subjective Generally feeling okay, however was having fever up to 101, has been fever, come and goes after the procedure, Generally feeling weak, report pain of the hip is 7 out of 10, Is working together with therapist, Review of Systems Constitutional: Positive weakness, or fatigue Respiratory: no cough, sputum, wheezing, or dyspnea on exertion Cardiac: No chest pain, No orthopnea, No PND, No claudication, Abdomen: No pain, No nausea, No vomiting, No diarrhea, No constipation, No GI bleeding Musculoskeletal: See HPI, no muscle pain, No swelling, No calf pain, No problem reported : No dysuria, No urinary frequency, No incontinence, No hematuria Neurologic: No paralysis, No weakness, No numbness/tingling, No vertigo, No balance problems Psychiatric: No depression symptoms, No anhedonism, No anxiety, No insomnia, No substance abuse Heme: No abnormal bleeding/bruising, No clotting problems, No swollen lymph nodes, No night sweats Skin: No rash, No itch, No new/changing skin lesions, No color change, No bleeding Physical Exam 2 Vital Signs (Past 24 Hours): Last Vital Signs Temp 37.2 C 07/12/18 15:14 Pulse 96 H 07/12/18 15:14 Resp 16 07/12/18 15:14 BP 130/69 07/12/18 15:14 Pulse Ox 98 07/12/18 15:14 Physical Exam: General Appearance: Looks mild tired, frail, WD/WN, no apparent distress, Eyes: normal inspection, PERRL, EOMI, sclerae normal ENT: normal ENT inspection, hearing grossly normal, pharynx normal Neck: supple, no adenopathy, thyroid normal, no JVD, no carotid bruits, trachea midline Respiratory/Chest: chest non-tender, normal breath sounds, no respiratory distress, no accessory muscle use, breath sounds, rales, wheezing Cardiovascular: regular rate, rhythm, no JVD, no murmur Abdomen: normal bowel sounds, non tender, soft, no organomegaly, Extremities: Local incisions has no drainage, non-tender, normal inspection, no pedal edema, no calf tenderness, normal capillary refill , pelvis stable, joint has no limited range of motion, capillary refill is normal, no cyanosis clubbing Neurologic/Psychiatric: tandem mill sticker II-XII nml as tested, no motor/sensory deficits, alert, normal mood/affect, oriented x 3 Skin: normal color, warm/dry, no rash Lymphatic: no adenopathy Results & Data Laboratory Results Laboratory Results - last 24 hr 07/12/18 07/12/18 07/12/18 06:43 06:43 07:35 WBC Cancelled RBC Cancelled Hgb Cancelled Hct Cancelled MCV Cancelled MCH Cancelled MCHC Cancelled RDW Std Deviation Cancelled RDW Coeff of Dru Cancelled Plt Count Cancelled MPV Cancelled Absolute Nucleated RBC Cancelled Nucleated RBC % (auto) Cancelled Platelet Estimate Cancelled Sodium 140 Potassium 3.5 Chloride 111 H Carbon Dioxide 21 Anion Gap 8.0 BUN 9 Creatinine 0.64 Est Cr Clr Drug Dosing 78.3 Est GFR ( Amer) 104.1 Est GFR (Non-Af Amer) 89.8 BUN/Creatinine Ratio 13.2 Glucose 83 Calcium 7.7 L Urine Color Urine Appearance Urine pH Ur Specific [place] Urine Protein Urine Glucose (UA) Urine Ketones Urine Blood Urine Nitrite Urine Bilirubin Urine Urobilinogen Ur Leukocyte Esterase Urine WBC (Auto) Urine RBC (Auto) U Hyaline Cast (Auto) U Epithel Cells (Auto) Urine Bacteria (Auto) Urine Yeast 07/12/18 07/12/18 07:35 13:00 WBC 7.40 RBC 2.45 L Hgb 7.7 L Hct 22.6 L MCV 92.2 MCH 31.4 MCHC 34.1 RDW Std Deviation 51.2 H RDW Coeff of Dru 15.1 H Plt Count 140 MPV 9.7 Absolute Nucleated RBC Nucleated RBC % (auto) Platelet Estimate Sodium Potassium Chloride Carbon Dioxide Anion Gap BUN Creatinine Est Cr Clr Drug Dosing Est GFR ( Amer) Est GFR (Non-Af Amer) BUN/Creatinine Ratio Glucose Calcium Urine Color Yellow Urine Appearance Clear Urine pH 5.5 Ur Specific [place] 1.013 Urine Protein Trace H Urine Glucose (UA) Negative Urine Ketones Negative Urine Blood Negative Urine Nitrite Negative Urine Bilirubin Negative Urine Urobilinogen Negative Ur Leukocyte Esterase Negative Urine WBC (Auto) 1-5 Urine RBC (Auto) 0-4 U Hyaline Cast (Auto) 1-5 U Epithel Cells (Auto) 10-20 H Urine Bacteria (Auto) Negative Urine Yeast Not Reportable Microbiology 07/10/18 Unknown Urine,Indwelling Cath Urine Culture - Final No growth - less than 1,000 colonies/mL.
[2018-07-12] MEDS: HYDROXYCHLOROQUINE SULFATE 200 MG TAB PO SCH (16:28)
--- NOTE | 2018-07-12 20:28 | Ultrasound Report ---
ULTRASOUND BILATERAL LOWER EXTREMITY VENOUS CLINICAL HISTORY: Immobilized patient. Femoral fracture. COMPARISON STUDY: No priors. TECHNIQUE: Real-time, grayscale, and color Doppler sonography of the deep veins of the right and left lower extremity was performed from the inguinal crease to the calf. Compression and augmentation wer e utilized. FINDINGS: There is no sonographic evidence of deep venous thrombosis identified in the right or left lower extremity. The common femoral, superficial femoral, and popliteal veins are patent. The veins o f the left thigh could not be compressed due to discomfort. The remaining vessels are normally compre ssible. The greater saphenous vein and the profunda femoris vein at the junction with the common femo ral vein are clear in both legs. The visualized calf veins are patent bilaterally. IMPRESSION: There is no sonographic evidence of deep venous thrombosis identified in the right or lef t lower extremity. Electronically signed by: Khoa Fletcher M.D. 07/12/2018 8:27 PM
[2018-07-12] MEDS: FOLIC ACID 1 MG TAB PO SCH (20:43)
[2018-07-12] MEDS: clonazePAM 1 MG TAB PO PRN (20:43)
[2018-07-12] MEDS: VESICARE 10 MG PO SCH (20:44)
[2018-07-13] MEDS: ACETAMINOPHEN 325 MG TAB PO PRN ×3 (00:53→19:34)
[2018-07-13] MEDS: LEVOTHYROXINE SODIUM 25 MCG TABLET PO SCH (06:12)
[2018-07-13 07:09] LABS: Hematocrit (blood only) 22.4 % (37-47); Hemoglobin 7.5 g/dL (12.0-16.0); Mean Corpuscular Hgb Conc 33.5 g/dL (32-36); Mean Corpuscular Volume 92.9 fL (80-100); Mean Platelet Volume 9.5 fL (7.4-10.4); Platelet Count 197 K/uL (130-400); RDW Standard Deviation 50.8 fL (36.4-46.3); Red Blood Count 2.41 M/uL (4.2-5.4); White Blood Count 7.65 K/uL (4.8-10.8)
[2018-07-13 07:44] LABS: BUN Creatinine Ratio 12.2 (10-20); Calcium 8.1 mg/dl (8.5-10.1); Creatinine Clr Calc Pharmacy 74.8 ml/min; Est GFR (African American) 102.5; Est GFR (Non-African American) 88.4; Magnesium 1.8 mg/dl (1.8-2.4); Phosphorus 2.3 mg/dl (2.5-4.9); Potassium 3.6 mmol/L (3.5-5.1)
[2018-07-13] MEDS: FERROUS GLUCONATE 324 MG TAB PO SCH ×2 (08:30→16:52)
[2018-07-13] MEDS: ASPIRIN 81 MG ECTAB PO SCH ×2 (08:31→20:13)
[2018-07-13] MEDS: DOCUSATE SODIUM 100 MG CAP PO SCH ×2 (08:31→20:13)
[2018-07-13] MEDS: DONEPEZIL HCL 5 MG TAB PO SCH (08:31)
[2018-07-13] MEDS: VENLAFAXINE HCL XR 150 MG CAPXR PO SCH (08:32)
[2018-07-13] MEDS: MELOXICAM 7.5 MG TAB PO SCH (08:32)
[2018-07-13] MEDS: CEROVITE ADV FORMULA TAB PO SCH (08:33)
[2018-07-13] MEDS: MULTIVITAMIN TAB PO SCH (08:33)
[2018-07-13] MEDS: VORTIOXETINE HYDROBROMIDE PO SCH (08:34)
[2018-07-13] MEDS: CEVIMELINE 30 MG PO SCH ×3 (08:34→20:15)
[2018-07-13] MEDS: CHOLECALCIFEROL 1,000 UNITS TAB PO SCH (08:35)
[2018-07-13] MEDS: LISINOPRIL 10 MG TAB PO SCH (08:35)
[2018-07-13] MEDS: BuPROPion XL 150 MG TABCR PO SCH (08:35)
--- NOTE | 2018-07-13 12:42 | Infectious Disease Consult ---
Date of Consultation July 13, 2018 Assessment & Plan (1) Fever: no clear infection found, would follow off of abx, procalcitonin negative , clinically stable. would consider acute bleeding associated with fratcture as source for fever. inflammatory markers elevated but would expect them to be post fracture and post operatively. could repeat in 1-2 weeks. would follow off of abx. discussed with primary. History of Present Illness Attending Physician: Nirav Ayers MD, PhD, [facility] pt admitted after fall at home. has b/l tkr. has had increasing falls per chart. found to have fracture of femur extending into knee with hemorrhage into joint, no hematoma noted. has had fevers during admission, 07/10 tmax 38, 07/11 38.8, 07/12 38.4, today she is afebrile. she underwent ortho surgery on 07/09 - nicki placed, tolerated well. pain well controlled. UA negative, urine culture negative. ESR and Crp elevated at 58, and 19 - but done post op. CXR on 07/08 and 07/12 negative for infiltrate. 07/12 Dopplers negative for clot. on no abx this admission. on my exam she is oob to chair, leg is elevated in brace. no fevers today. no cp, sob, cough, no abd pain, no n/v/d, no gu symptoms. min pain in knee. procalcitonin negative this admision. wbc nml at 8.3. Pt for d/c rehab in next 24 hours. Allergies Allergy/AdvReac Type Severity Reaction Status Date / Time Iodinated Contrast- Oral and Allergy Severe HIVES Verified 07/08/18 11:15 IV Dye baclofen Allergy Unknown Unverified 07/08/18 11:15 cyclobenzaprine Allergy Unknown Unverified 07/08/18 11:15 [From Flexeril] morphine Allergy Unknown Unverified 07/08/18 11:15 Penicillins AdvReac Intermediate RASH Verified 07/08/18 11:15 tizanidine [From Zanaflex] AdvReac Hallucinati Unverified 07/08/18 11:15 ng Home Medications Home Medications Medication Instructions Recorded Confirmed Type bupropion HCl 150 mg PO DAILY 05/27/18 07/08/18 History cevimeline 30 mg PO TID 05/27/18 07/08/18 History clonazepam 1 mg PO DIRECTED PRN 05/27/18 07/08/18 History donepezil 5 mg PO DAILY 05/27/18 07/08/18 History folic acid 2 mg PO QPM 05/27/18 07/08/18 History levothyroxine [Synthroid] 25 mcg PO DAILY 05/27/18 07/08/18 History lisinopril 10 mg PO DAILY 05/27/18 07/08/18 History meloxicam 15 mg PO DAILY 05/27/18 07/08/18 History solifenacin [Vesicare] 10 mg PO QPM 05/27/18 07/08/18 History vortioxetine [Trintellix] 20 mg PO DAILY 05/27/18 07/08/18 History cholecalciferol (vitamin D3) 1,000 unit PO DAILY 07/08/18 07/08/18 History [Vitamin D3] hydroxychloroquine 400 mg PO DAILY 07/08/18 07/08/18 History esoydbru-[id number]-[id number]-calcium-mins 1 tab PO QAM 07/08/18 07/08/18 History [One-A-Day Women's Petites] oxycodone 5 mg PO DIRECTED PRN 07/08/18 07/08/18 History venlafaxine 300 mg PO QAM 07/08/18 07/08/18 History Patient History Medical History Overactive bladder Anxiety Depression Hypothyroid HTN (hypertension) Alzheimers disease (Chronic) Arthritis (Chronic) Anemia Surgical History H/O knee surgery (Resolved) Family History Mother CVA (cerebrovascular accident due to intracerebral hemorrhage) Father CVA (cerebral vascular accident) Social History marital status: Current Living Situation: Spouse Current Living Situation Comment: in apartment with Other Information That Helps Us Care for You: No Feels Safe at Home: Yes Safety Concerns: Feels Safe At This Time Smoking Status: Former smoker Tobacco Type: cigarettes Do You Dip or Chew Tobacco: No Smoking End Date: 2011 Hx Alcohol Use: No Hx Substance Use: No Beliefs That Will Affect Care: None Communication Ability: Effective Review of Systems all remaining ros reviewed and are negative Physical Exam 2 Vital Signs (Past 24 Hours): Last Vital Signs Temp 36.6 C 07/13/18 12:37 Pulse 66 07/13/18 12:37 Resp 18 07/13/18 12:37 BP 115/75 07/13/18 12:37 Pulse Ox 95 07/13/18 12:37 Constitutional: WD/WN, vitals as above Eyes: PERRL, conjunctivae normal, anicteric sclerae ENMT: external ear and nose normal, oropharynx normal Neck: normal visual inspection Respiratory: normal respiratory effort, lungs clear to auscultation Cardiovascular: RRR, no murmur, no edema Gastrointestinal (Abdomen): normal bowel sounds, soft, nontender, no hepatosplenomegaly Musculoskeletal: no cyanosis or clubbing, extremities motor strength 5/5 left leg in brace, dressing c/d/i Skin: no rashes, warm and dry Psychiatric: A+Ox3, euthymic affect Results & Data Laboratory Results Microbiology 07/10/18 Unknown Urine,Indwelling Cath Urine Culture - Final No growth - less than 1,000 colonies/mL.
[2018-07-13] MEDS: OXYCODONE HCL IR 5 MG TAB (IMMEDIATE RELEASE) PO PRN ×2 (13:44→21:38)
--- NOTE | 2018-07-13 14:56 | Hospitalist Progress Note ---
Date of Service July 13, 2018 Assessment & Plan (1) Femur fracture, left: (2) Fever: (3) HTN (hypertension): (4) Acute blood loss anemia: (5) Hypothyroid: (6) Depression: (7) Dementia: (8) Anxiety: (9) Overactive bladder: (10) DVT prophylaxis: (11) Fall: 76-year-old white female admitted on July 08, 2018 because of left femur fracture, later developed fever postop, today still spiking fever up to 101 Left Distal Femur Fracture s/p Retrograde IM Nail by Dr. Alan Jalloh Per recommendation, DVT prophylaxis including thigh-high TEDs, SCDs, and aspirin twice a day. 50% weightbearing of the left leg and the knee immobilizer. No knee range of motion for now. Can do quad sets and straight leg raises. Has been having spiking fever fever no localizing signs, UA was sent, no UTI, chest x-ray was done no pneumonia, pro-calcitonin neg , blood culture, no DVT Patient does not look toxic or any infection, likely no obvious infectious process going on Likely acute blood loss anemia, is checking stool Hemoccult, patient is on iron , today's general color looks good, no transfusion, Continue iron supplementation. Hypertension hypothyroidism depression dementia anxiety, stable continue current medication DVT prophylaxis: As per ortho aspirin 81 mg bid Continue PT OT, planning to rehab [facility], Subjective feeling okay, out of bed to chair, however was having fever up to 100.4 this morning, has been fever, come and goes after the procedure, Generally feeling weak, report pain of the hip is 4 out of 10, Is working together with therapist, Review of Systems Constitutional: Positive weakness, or fatigue Respiratory: no cough, sputum, wheezing, or dyspnea on exertion Cardiac: No chest pain, No orthopnea, No PND, No claudication, Abdomen: No pain, No nausea, No vomiting, No diarrhea, No constipation, No GI bleeding Musculoskeletal: See HPI, no muscle pain, No swelling, No calf pain, No problem reported : No dysuria, No urinary frequency, No incontinence, No hematuria Neurologic: No paralysis, No weakness, No numbness/tingling, No vertigo, No balance problems Psychiatric: No depression symptoms, No anhedonism, No anxiety, No insomnia, No substance abuse Heme: No abnormal bleeding/bruising, No clotting problems, No swollen lymph nodes, No night sweats Skin: No rash, No itch, No new/changing skin lesions, No color change, No bleeding Physical Exam 2 Vital Signs (Past 24 Hours): Last Vital Signs Temp 36.6 C 07/13/18 12:37 Pulse 66 07/13/18 12:37 Resp 18 07/13/18 12:37 BP 115/75 07/13/18 12:37 Pulse Ox 95 07/13/18 12:37 Physical Exam: General Appearance: Looks better than yesterday but no obvious pale, frail, WD/WN, no apparent distress, Eyes: normal inspection, PERRL, EOMI, sclerae normal ENT: normal ENT inspection, hearing grossly normal, pharynx normal Neck: supple, no adenopathy, thyroid normal, no JVD, no carotid bruits, trachea midline Respiratory/Chest: chest non-tender, normal breath sounds, no respiratory distress, no accessory muscle use, breath sounds, rales, wheezing Cardiovascular: regular rate, rhythm, no JVD, no murmur Abdomen: normal bowel sounds, non tender, soft, no organomegaly, Extremities: Local incisions looks great, clean and no erythema, no red, has no drainage, non-tender, normal inspection, no pedal edema, no calf tenderness, normal capillary refill, pelvis stable, joint has no limited range of motion, capillary refill is normal, no cyanosis clubbing Neurologic/Psychiatric: cafeteria associate II-XII nml as tested, no motor/sensory deficits, alert, normal mood/affect, oriented x 3 Skin: normal color, warm/dry, no rash Lymphatic: no adenopathy Results & Data Laboratory Results Laboratory Results - last 24 hr 07/08/18 07/12/18 07/12/18 15:54 13:00 16:06 WBC RBC Hgb Hct MCV MCH MCHC RDW Std Deviation RDW Coeff of Dru Plt Count MPV ESR D-Dimer 4930 H* Sodium Potassium Chloride Carbon Dioxide Anion Gap BUN Creatinine Est Cr Clr Drug Dosing Est GFR ( Amer) Est GFR (Non-Af Amer) BUN/Creatinine Ratio Glucose Calcium Phosphorus Magnesium C-Reactive Protein Procalcitonin Urine Color Yellow Urine Appearance Clear Urine pH 5.5 Ur Specific [place] 1.013 Urine Protein Trace H Urine Glucose (UA) Negative Urine Ketones Negative Urine Blood Negative Urine Nitrite Negative Urine Bilirubin Negative Urine Urobilinogen Negative Ur Leukocyte Esterase Negative Urine WBC (Auto) 1-5 Urine RBC (Auto) 0-4 U Hyaline Cast (Auto) 1-5 U Epithel Cells (Auto) 10-20 H Urine Bacteria (Auto) Negative Urine Yeast Not Reportable Crossmatch See Detail 07/12/18 07/12/18 07/12/18 16:06 16:07 16:07 WBC RBC Hgb Hct MCV MCH MCHC RDW Std Deviation RDW Coeff of Dru Plt Count MPV ESR 58 H D-Dimer Sodium Potassium Chloride Carbon Dioxide Anion Gap BUN Creatinine Est Cr Clr Drug Dosing Est GFR ( Amer) Est GFR (Non-Af Amer) BUN/Creatinine Ratio Glucose Calcium Phosphorus Magnesium C-Reactive Protein 19.20 H Procalcitonin 0.22 Urine Color Urine Appearance Urine pH Ur Specific [place] Urine Protein Urine Glucose (UA) Urine Ketones Urine Blood Urine Nitrite Urine Bilirubin Urine Urobilinogen Ur Leukocyte Esterase Urine WBC (Auto) Urine RBC (Auto) U Hyaline Cast (Auto) U Epithel Cells (Auto) Urine Bacteria (Auto) Urine Yeast Crossmatch 07/13/18 07/13/18 06:33 06:33 WBC 7.65 RBC 2.41 L Hgb 7.5 L Hct 22.4 L MCV 92.9 MCH 31.1 MCHC 33.5 RDW Std Deviation 50.8 H RDW Coeff of Dru 15.0 H Plt Count 197 MPV 9.5 ESR D-Dimer Sodium 141 Potassium 3.6 Chloride 112 H Carbon Dioxide 24 Anion Gap 5.0 BUN 8 Creatinine 0.67 Est Cr Clr Drug Dosing 74.8 Est GFR ( Amer) 102.5 Est GFR (Non-Af Amer) 88.4 BUN/Creatinine Ratio 12.2 Glucose 87 Calcium 8.1 L Phosphorus 2.3 L Magnesium 1.8 C-Reactive Protein Procalcitonin Urine Color Urine Appearance Urine pH Ur Specific [place] Urine Protein Urine Glucose (UA) Urine Ketones Urine Blood Urine Nitrite Urine Bilirubin Urine Urobilinogen Ur Leukocyte Esterase Urine WBC (Auto) Urine RBC (Auto) U Hyaline Cast (Auto) U Epithel Cells (Auto) Urine Bacteria (Auto) Urine Yeast Crossmatch
[2018-07-13] MEDS: HYDROXYCHLOROQUINE SULFATE 200 MG TAB PO SCH (16:52)
[2018-07-13] MEDS: FOLIC ACID 1 MG TAB PO SCH (20:14)
[2018-07-13] MEDS: VESICARE 10 MG PO SCH (20:15)
--- NOTE | 2018-07-13 20:53 | Progress Note ---
DATE: 07/13/2018 SUBJECTIVE: A 72-year-old white female postop day 4 from open reduction and retrograde IM nailing for a left periprosthetic femur fracture. She seems to be doing pretty well. Pain seems to be getting a little bit better daily. No new complaints. No chest pain or shortness of breath. Not feeling dizzy or lightheaded. She has had some intermittent fevers which have currently resolved on their own. OBJECTIVE: VITAL SIGNS: Temperature 37.5. Vital signs stable. GENERAL: Physical examination reveals a pleasant elderly female. She is lying in bed, looks pretty comfortable. EXTREMITIES: Leg is well aligned. Incision is clean, dry, and intact. No significant drainage. She is neurologically stable. She does have some chronic weakness in this left leg. LABORATORY DATA: Hemoglobin 7.5, hematocrit 22.4. Electrolytes are stable. ASSESSMENT: A 72-year-old female postop day 4 from open reduction internal fixation and retrograde IM nailing for periprosthetic femur fracture, doing pretty well. She has been anemic, but currently without symptoms. Pain seems to be controlled. She has had some intermittent fevers which are not unexpected postoperatively. There has been no focal source and there are no focal signs of infection anywhere. PLAN: At this point, I just recommend continued therapy. Medically she seems stable. I do not think she needs any more fever workup. I encouraged her to use incentive spirometer. Recommend DVT prophylaxis including thigh-high TEDs, SCDs, and baby aspirin twice a day. She is partial weightbearing left leg in a knee immobilizer. No knee range of motion for now. I need to see her back 2 weeks postop. Any orthopedic questions can be directed to me at [phone].
[2018-07-13] MEDS: ONDANSETRON INJ 2 MG/ML 2 ML VIAL IV PRN (21:59)
[2018-07-14] MEDS: ACETAMINOPHEN 325 MG TAB PO PRN ×4 (02:45→18:46)
[2018-07-14] MEDS: LEVOTHYROXINE SODIUM 25 MCG TABLET PO SCH (05:37)
[2018-07-14 06:20] LABS: Hematocrit (blood only) 22.5 % (37-47); Hemoglobin 7.4 g/dL (12.0-16.0); Mean Corpuscular Hgb Conc 32.9 g/dL (32-36); Mean Corpuscular Volume 93.4 fL (80-100); Mean Platelet Volume 9.7 fL (7.4-10.4); Platelet Count 225 K/uL (130-400); RDW Coefficient of Variation 14.9 % (11.5-14.5); RDW Standard Deviation 50.4 fL (36.4-46.3); Red Blood Count 2.41 M/uL (4.2-5.4); White Blood Count 7.89 K/uL (4.8-10.8)
[2018-07-14 06:57] LABS: BUN Creatinine Ratio 14.2 (10-20); Calcium 8.3 mg/dl (8.5-10.1); Creatinine Clr Calc Pharmacy 66.8 ml/min; Est GFR (African American) 92.9; Est GFR (Non-African American) 80.2; Magnesium 1.8 mg/dl (1.8-2.4); Potassium 4.1 mmol/L (3.5-5.1)
[2018-07-14] MEDS: CEVIMELINE 30 MG PO SCH ×3 (09:39→20:16)
[2018-07-14] MEDS: ASPIRIN 81 MG ECTAB PO SCH ×2 (09:40→20:16)
[2018-07-14] MEDS: DOCUSATE SODIUM 100 MG CAP PO SCH ×2 (09:40→20:15)
[2018-07-14] MEDS: VENLAFAXINE HCL XR 150 MG CAPXR PO SCH (09:40)
[2018-07-14] MEDS: FERROUS GLUCONATE 324 MG TAB PO SCH ×2 (09:40→17:23)
[2018-07-14] MEDS: DONEPEZIL HCL 5 MG TAB PO SCH (09:40)
[2018-07-14] MEDS: CEROVITE ADV FORMULA TAB PO SCH (09:41)
[2018-07-14] MEDS: MULTIVITAMIN TAB PO SCH (09:41)
[2018-07-14] MEDS: CHOLECALCIFEROL 1,000 UNITS TAB PO SCH (09:41)
[2018-07-14] MEDS: MELOXICAM 7.5 MG TAB PO SCH (09:41)
[2018-07-14] MEDS: BuPROPion XL 150 MG TABCR PO SCH (09:42)
[2018-07-14] MEDS: LISINOPRIL 10 MG TAB PO SCH (09:42)
--- NOTE | 2018-07-14 12:02 | Progress Note ---
DATE: 07/14/2018 SUBJECTIVE: A 72-year-old female now 5 days out from open IM nailing of a left periprosthetic femur fracture. Seems to be doing well. Seems to be getting better daily. No new complaints. Pain seems to be getting better. No chest pain or shortness of breath. Not feeling dizzy or lightheaded. OBJECTIVE: VITAL SIGNS: Temperature 37.0. Vital signs stable. GENERAL: Physical examination reveals a pleasant elderly female. She is lying in bed, looks reasonably comfortable. EXTREMITIES: Examination of the left leg reveals the leg to be well aligned. Dressing is clean, dry and intact. Calf is soft and supple. She can dorsiflex and plantarflex her foot appropriately. LABORATORY DATA: Hemoglobin stable at 7.4. Hematocrit 22.5. ASSESSMENT: A 72-year-old white female now 5 days out from open IM nailing of a left periprosthetic femur fracture, doing pretty well. Her pain is controlled. She has been anemic, but asymptomatic and her hemoglobin is stable. PLAN: 1. DVT prophylaxis including thigh-high TEDs, SCDs, and aspirin twice a day. 2. PT/OT. She can 50% weightbear in this knee immobilizer. No knee range of motion. 3. Medical management as per the medicine service. 4. Disposition: She is orthopedically acceptable for discharge any time. I just need to see her back 2 weeks from her surgery date. Any orthopedic questions can be directed to me at [phone].
--- NOTE | 2018-07-14 15:59 | Discharge Summary ---
Date of Service July 14, 2018 Admission HPI Per Admitting Provider 72 y/o F c/o L LE pain. Pt fell this AM. She states she fell directly onto her L knee. She states that she has been having ongoing balance issues and has had several falls. She has seen her PCP for this and there is no clear answer to this. PCP feels it is related to loss of core strength s/p several spine surgeries. Pt was given exercises to work on rebuilding her core strength but had not started this yet. Pt states her fall was purely related to loss of balance. No dizziness or lightheadedness or syncope. Pt denies fever, SOB, chest pain, abd pain, n/v/c/d, LE swelling. Pt states that other than the loss of balance, she has had no issues lately. She did not take the clonazpam today. Last PO intake was a muffin around 7a. Pt states she was dx with Alzheimer's this past May. She and her daughter both deny issues with owning currently. Discharge Data Allergies Allergy/AdvReac Type Severity Reaction Status Date / Time Iodinated Contrast- Oral and Allergy Severe HIVES Verified 07/08/18 11:15 IV Dye baclofen Allergy Unknown Unverified 07/08/18 11:15 cyclobenzaprine Allergy Unknown Unverified 07/08/18 11:15 [From Flexeril] morphine Allergy Unknown Unverified 07/08/18 11:15 Penicillins AdvReac Intermediate RASH Verified 07/08/18 11:15 tizanidine [From Zanaflex] AdvReac Hallucinati Unverified 07/08/18 11:15 ng Consultations 07/08/18 15:27 Consult Case Management - Discharge Planning Routine Consult Orthopedic Surgery Routine 07/09/18 16:56 Consult Case Management - Discharge Planning Routine 07/13/18 08:59 Consult Infectious Diseases Routine Procedures Performed Operation Date: 07/09/18 13:00 Actual Procedures p Left Distal Femur Fracture Retrograde IM Nail(Left) - Alan Jalloh MD Ordered Studies 07/08/18 16:15 CT femur LT wo con Stat 07/09/18 13:00 FL femur LT 2V Routine FL fluoroscopy <1hr Routine 07/12/18 17:01 US venous doppler LE BI Stat Hospital Course (1) Femur fracture, left: (2) Fever: (3) HTN (hypertension): (4) Acute blood loss anemia: hgb improved after transfusion (5) Hypothyroid: (6) Depression: (7) Dementia: Dx in May, declines issues with owning doing well on aricept (8) Anxiety: (9) Overactive bladder: (10) DVT prophylaxis: (11) Fall: 76-year-old white female admitted on July 08, 2018 because of left femur fracture, later developed fever postop, today still spiking fever up to 101 Left Distal Femur Fracture s/p Retrograde IM Nail by Dr. Alan Jalloh Per recommendation, DVT prophylaxis including thigh-high TEDs, SCDs, and aspirin twice a day. 50% weightbearing of the left leg and the knee immobilizer. No knee range of motion for now. Can do quad sets and straight leg raises. Has been having spiking fever fever no localizing signs, UA was sent, no UTI, chest x-ray was done no pneumonia, pro-calcitonin neg , blood culture, no DVT Patient does not look toxic or any infection, likely no obvious infectious process going on Likely acute blood loss anemia, is checking stool Hemoccult, patient is on iron , today's general color looks good, no transfusion, Continue iron supplementation. Hypertension hypothyroidism depression dementia anxiety, stable continue current medication DVT prophylaxis: As per ortho aspirin 81 mg bid Continue PT OT, planning to rehab [facility], Discharge Plan Discharge Items Patient Disposition: Transfer Inpatient Rehab Fac Reason For Visit: FEMUR FX Discharge Diagnosis: IM Nailing of Left Femur Fracture Condition: Fair Discharge Goals: Decrease discomfort, Improve disease control, Improve function and Therapeutic intervention Activity: Per 'Additional Instructions' section Activity Comment: May be 50% WB in Knee Immobilizer. No Knee ROM for 2 weeks. Weightbearing: Left partial Weightbearing Comment: 50% Weight-bearing Maximum IN knee Immobilizer. Immobilizer for all WB. Non-emergency contact: Surgeon Call non-emergency contact if: you have any medication questions Follow-up/Referrals: Alan Jalloh MD [Surgeon] - (2 Weeks post-op.) Diet: Heart Healthy Addtl Provider Instructions: 50% Weight-bearing maximum IN Knee Imobilizer No Knee range of motion for 2 weeks Should do quad sets and straight leg exercises in knee imobilizer. you have left femur fracture s/p Retrograde IM Nail by Dr. Alan Jalloh Per recommendation, DVT prophylaxis including thigh-high TEDs, SCDs, and aspirin twice a day. 50% weightbearing of the left leg and the knee immobilizer. No knee range of motion for now. Can do quad sets and straight leg raises. you had been having spiking fever , with no localizing infection signs, you have acute blood loss anemia, need to continue iron pill you need to follow up with your primary care physician in 1 week, - take medication as instructed, never overdose or any misuse, or take with alcohol, because misuse of medicine may cause organ damage or , call me , or your primary care physician if have questions of discharge medicaitons. - call your primary care physician, or go to local emergency room if has any fever/chill, chest pain, shortness of breathing, nausea/vomiting/abdominal pain , facial droop/slurry speech/local weakness, or if has any questions. - fall precaution - diet as instructed - you need to follow up with your subspecialist, such as Dr. Jalloh Prescriptions: New multivitamin [Daily-Deven] Tablet 1 tab PO QAM 30 Days Qty: 30 RF: 0 aspirin [Ecotrin Low Strength] 81 mg Tablet,Delayed Release (Dr/Ec) 81 mg PO BID 42 Days Qty: 84 RF: 0 docusate sodium 100 mg Capsule 100 mg PO BID 14 Days Qty: 28 RF: 0 ferrous gluconate 324 mg (38 mg iron) Tablet 324 mg PO BIDM 30 Days Qty: 60 RF: 0 Continue lisinopril 10 mg tablet 10 mg PO DAILY RF: 0 donepezil 5 mg tablet 5 mg PO DAILY RF: 0 meloxicam 15 mg tablet 15 mg PO DAILY RF: 0 clonazepam 1 mg tablet 1 mg PO DIRECTED PRN (Reason: Anxiety) RF: 0 levothyroxine [Synthroid] 25 mcg tablet 25 mcg PO DAILY RF: 0 cevimeline 30 mg capsule 30 mg PO TID RF: 0 folic acid 1 mg tablet 2 mg PO QPM RF: 0 bupropion HCl 150 mg tablet extended release 24 hr 150 mg PO DAILY RF: 0 solifenacin [Vesicare] 10 mg tablet 10 mg PO QPM RF: 0 vortioxetine [Trintellix] 20 mg tablet 20 mg PO DAILY RF: 0 venlafaxine 150 mg capsule,extended release 24hr 300 mg PO QAM RF: 0 hydroxychloroquine 200 mg Tablet 400 mg PO DAILY RF: 0 oxycodone 5 mg Tablet 5 mg PO DIRECTED PRN (Reason: Pain) RF: 0 cholecalciferol (vitamin D3) [Vitamin D3] 1,000 unit Tablet 1,000 unit PO DAILY RF: 0 zitypzbk-[id number]-BW-calcium-mins [One-A-Day Women's Petites] 9 mg iron-200 mcg Tablet 1 tab PO QAM RF: 0 Stand-Alone Forms: [facility] Discharge Orders: Discharge Order (Routine); Ordered 07/14/18 Ordered By: Nirav Ayers Skilled Items Patient informed of condition?: Yes DNR: No Discharge Level of Care: Acute rehab Communicable Disease: No Discharge Prognosis: Improving Admission Data Admit Date/Time: 07/08/18 12:57 Attending Provider: Nirav Ayers Admit Provider: Meseret Engel Primary Care Provider: JOANNA RODARTE Other Providers: Meseret Engel ; Alan Jalloh ; Arsen Pringle ; Luis Muir Service: Medical
--- NOTE | 2018-07-14 16:08 | Hospitalist Progress Note ---
Date of Service July 14, 2018 Assessment & Plan (1) Femur fracture, left: (2) Fever: (3) HTN (hypertension): (4) Acute blood loss anemia: (5) Hypothyroid: (6) Depression: (7) Dementia: (8) Anxiety: (9) Overactive bladder: (10) DVT prophylaxis: (11) Fall: 76-year-old white female admitted on July 08, 2018 because of left femur fracture, later developed fever postop, today still spiking fever up to 101 Left Distal Femur Fracture s/p Retrograde IM Nail by Dr. Jalloh Per recommendation, DVT prophylaxis including thigh-high TEDs, SCDs, and aspirin twice a day. 50% weightbearing of the left leg and the knee immobilizer. No knee range of motion for now. Can do quad sets and straight leg raises. Has been having spiking fever fever no localizing signs, UA was sent, no UTI, chest x-ray was done no pneumonia, pro-calcitonin neg , blood culture, no DVT Patient does not look toxic or any infection, likely no obvious infectious process going on Likely acute blood loss anemia, and possible GI bleeding with heme stool positive today's general color looks good, hemoglobin 7.4 from 7.5 stable, no transfusion , Continue iron supplementation. Patient is on aspirin, Will request GI consult Hypertension hypothyroidism depression dementia anxiety, stable continue current medication DVT prophylaxis: As per ortho aspirin 81 mg bid Continue PT OT, patient declined to rehab, will do peer to peer review I call [phone] for peer peer review , waiting them call me back Subjective feeling okay, out of bed to chair, however reported left foot inward fever up to 100 this morning, Generally feeling weak, report pain of the hip is 3 out of 10, Is working together with therapist, Review of Systems Constitutional: Positive weakness, or fatigue Respiratory: no cough, sputum, wheezing, or dyspnea on exertion Cardiac: No chest pain, No orthopnea, No PND, No claudication, Abdomen: No pain, No nausea, No vomiting, No diarrhea, No constipation, No GI bleeding Musculoskeletal: See HPI, no muscle pain, No swelling, No calf pain, No problem reported : No dysuria, No urinary frequency, No incontinence, No hematuria Neurologic: No paralysis, No weakness, No numbness/tingling, Psychiatric: No depression symptoms, No anhedonism, No anxiety, Heme: No abnormal bleeding/bruising, No clotting problems, No swollen lymph nodes, Skin: No rash, No itch, No new/changing skin lesions, No color change, No bleeding Physical Exam 2 Vital Signs (Past 24 Hours): Last Vital Signs Temp 36.7 C 07/14/18 15:46 Pulse 85 07/14/18 15:46 Resp 18 07/14/18 15:46 BP 146/80 H 07/14/18 15:46 Pulse Ox 95 07/14/18 15:46 Physical Exam: General Appearance: Looks ok, no obvious pale, WD/WN, no apparent distress, Eyes: normal inspection, PERRL, EOMI, sclerae normal ENT: normal ENT inspection, hearing grossly normal, pharynx normal Neck: supple, no adenopathy, thyroid normal, no JVD, no carotid bruits, trachea midline Respiratory/Chest: chest non-tender, normal breath sounds, no respiratory distress, no accessory muscle use, breath sounds, rales, wheezing Cardiovascular: regular rate, rhythm, no JVD, no murmur Abdomen: normal bowel sounds, non tender, soft, no organomegaly, Extremities: Local incisions looks great, clean and no erythema, no red, has no drainage, non-tender, normal inspection, no pedal edema, no calf tenderness, normal capillary refill, pelvis stable, capillary refill is normal, no cyanosis clubbing, in foot inwarded Neurologic/Psychiatric: waste and batting waste chopper II-XII nml as tested, no motor/sensory deficits, alert, normal mood/affect, oriented x 3 Skin: normal color, warm/dry, no rash Lymphatic: no adenopathy Results & Data Laboratory Results Laboratory Results - last 24 hr 07/13/18 07/14/18 07/14/18 23:30 05:44 05:44 WBC 7.89 RBC 2.41 L Hgb 7.4 L Hct 22.5 L MCV 93.4 MCH 30.7 MCHC 32.9 RDW Std Deviation 50.4 H RDW Coeff of Dru 14.9 H Plt Count 225 MPV 9.7 Sodium 141 Potassium 4.1 Chloride 108 H Carbon Dioxide 26 Anion Gap 7.0 BUN 11 Creatinine 0.75 Est Cr Clr Drug Dosing 66.8 Est GFR ( Amer) 92.9 Est GFR (Non-Af Amer) 80.2 BUN/Creatinine Ratio 14.2 Glucose 88 Calcium 8.3 L Magnesium 1.8 Stool Occult Bld Scrn Positive H Microbiology 07/12/18 13:32 Blood Blood Culture - Preliminary No growth to date. 07/12/18 13:20 Blood Blood Culture - Preliminary No growth to date.
[2018-07-14] MEDS: HYDROXYCHLOROQUINE SULFATE 200 MG TAB PO SCH (17:23)
[2018-07-14] MEDS: VESICARE 10 MG PO SCH ×2 (18:42→18:43)
[2018-07-14] MEDS: FOLIC ACID 1 MG TAB PO SCH (20:15)
[2018-07-14] MEDS: clonazePAM 1 MG TAB PO PRN (23:49)
[2018-07-15] MEDS: ACETAMINOPHEN 325 MG TAB PO PRN ×2 (04:48→12:26)
[2018-07-15] MEDS: LEVOTHYROXINE SODIUM 25 MCG TABLET PO SCH (05:36)
[2018-07-15 06:46] LABS: Basophils # (auto) 0.02 K/uL (0-0.2); Basophils % (auto) 0.2 %; Eosinophils # (auto) 0.25 K/uL (0-0.5); Eosinophils % (auto) 2.9 %; Hematocrit (blood only) 24.2 % (37-47); Hemoglobin 7.9 g/dL (12.0-16.0); Immature Granulocytes # (auto) 0.02 K/uL (0.00-0.02); Immature Granulocytes % (auto) 0.2 %; Lymphocytes # (auto) 1.29 K/uL (1.2-3.4); Mean Corpuscular Hgb Conc 32.6 g/dL (32-36); Mean Corpuscular Volume 93.4 fL (80-100); Monocytes # (auto) 0.94 K/uL (0.11-0.59); Monocytes % (auto) 10.9 %; Neutrophils # (auto) 6.07 K/uL (1.4-6.5); Neutrophils % (auto) 70.8 %; Nucleated RBC # (auto) 0.02 K/uL (0-0); Nucleated RBC % (auto) 0.2 %; Platelet Count 281 K/uL (130-400); RDW Coefficient of Variation 14.8 % (11.5-14.5); Red Blood Count 2.59 M/uL (4.2-5.4); White Blood Count 8.59 K/uL (4.8-10.8)
[2018-07-15 06:53] LABS: Prothrombin Time 10.1 Seconds (9.0-12.0)
[2018-07-15 07:25] LABS: RBC Morphology Unremarkable
[2018-07-15 07:28] LABS: BUN Creatinine Ratio 13.6 (10-20); Calcium 8.3 mg/dl (8.5-10.1); Est GFR (African American) 91.5; Est GFR (Non-African American) 78.9; Magnesium 1.7 mg/dl (1.8-2.4); Phosphorus 3.2 mg/dl (2.5-4.9); Potassium 3.1 mmol/L (3.5-5.1)
[2018-07-15] MEDS ORDERED: POTASSIUM CHLORIDE 20 MEQ TABCR PO STA (07:38)
--- NOTE | 2018-07-15 07:42 | Progress Note ---
DATE: 07/15/2018 SUBJECTIVE: A 72-year-old white female postop day 6 from an open IM nailing of a left periprosthetic femur fracture. Her pain is controlled. Major complaint today is just feeling constipated. OBJECTIVE: VITAL SIGNS: Temperature 37.8. Vital signs stable. GENERAL: Physical examination reveals a pleasant elderly female. She is lying in bed, looks reasonably comfortable. EXTREMITIES: Examination of the left leg reveals a knee immobilizer to be in place. Dressing is clean, dry and intact. Leg is well aligned. She can dorsiflex and plantarflex her foot at baseline. She does have some weakness in this left leg chronically. LABORATORY DATA: Hemoglobin 7.9. Hematocrit 24.2. Electrolytes are pending. ASSESSMENT: A 72-year-old white female now 6 days out from open IM nailing of a left periprosthetic femur fracture. Medically, she seems to be doing okay. We are just waiting for transfer. She was hoping to go to [facility]. Apparently, this has been denied in review. PLAN: 1. DVT prophylaxis including thigh-high TEDs, SCDs, and aspirin twice a day for the next 6 weeks. 2. PT/OT. She can 50% weightbearing in the left leg along with knee immobilizer. No knee range of motion. Can work on straight leg raises and quad sets. 3. Medical management as per the medicine service. 4. Disposition: She is orthopedically stable and acceptable for discharge. I need to see her back 2 weeks from her surgery date. Any orthopedic questions can be directed to me at [phone].
[2018-07-15] MEDS ORDERED: MAGNESIUM SULFATE / D5W 1 GM/100 ML BAG IV ONE (08:00)
[2018-07-15] MEDS: MAGNESIUM OXIDE 400 MG TAB PO SCH ×2 (08:30→20:21)
[2018-07-15] MEDS: FERROUS GLUCONATE 324 MG TAB PO SCH ×2 (09:26→16:29)
[2018-07-15] MEDS: DOCUSATE SODIUM 100 MG CAP PO SCH ×2 (09:27→20:20)
[2018-07-15] MEDS: DONEPEZIL HCL 5 MG TAB PO SCH (09:27)
[2018-07-15] MEDS: MELOXICAM 7.5 MG TAB PO SCH (09:28)
[2018-07-15] MEDS: ASPIRIN 81 MG ECTAB PO SCH ×2 (09:28→20:21)
[2018-07-15] MEDS: VENLAFAXINE HCL XR 150 MG CAPXR PO SCH (09:28)
[2018-07-15] MEDS: CEVIMELINE 30 MG PO SCH ×3 (09:29→20:23)
[2018-07-15] MEDS: CEROVITE ADV FORMULA TAB PO SCH (09:29)
[2018-07-15] MEDS: MULTIVITAMIN TAB PO SCH (09:29)
[2018-07-15] MEDS: CHOLECALCIFEROL 1,000 UNITS TAB PO SCH (09:29)
[2018-07-15] MEDS: BuPROPion XL 150 MG TABCR PO SCH (09:30)
[2018-07-15] MEDS: LISINOPRIL 10 MG TAB PO SCH (09:30)
--- NOTE | 2018-07-15 10:40 | Gastrointestinal Consultation ---
Date of Consultation July 15, 2018 Assessment & Plan (1) Acute blood loss anemia: (2) Heme positive stool: 1. Start Protonix 40 mg BID. 2. Continue to monitor H&H. 7.4/.5 yesterday. Hgb 7.9 today. 3. Will hold off on invasive GI work up at this time as no overt GIB symptoms. 4. Could reconsider EGD if patient's H&H drops or she develops overt GIB symptoms. 5. Continue supportive care. Supervising Physician Co-Signing Physician Notes Agree with GALLO Mclaughlin as above Abd: Soft, NT, ND, +BS Continue current therapy Will re-evaluate in AM and make further recommendations at that time. History of Present Illness Reason for Consultation: Heme positive stool and anemia Requesting Physician: Dr. Ayers Attending Physician: Nirav Ayers MD, PhD, [facility] History of Present Illness Patient is a 72 year-old female with a history of recent left femur fracture status post left femur IM nailing by Dr. Jalloh. She states she has had a complicated post-operative course with unexplained fevers and weakness. Fevers have since resolved. Gastroenterology is being consulted in regard to persistent anemia and she was found to be heme positive. She denies any abdominal pain or overt GIB. Reports only mild nausea if she is taking her oral medications on an empty stomach. Patient is taking meloxicam as prescribed. Not on PPI therapy. Allergies Allergy/AdvReac Type Severity Reaction Status Date / Time Iodinated Contrast- Oral and Allergy Severe HIVES Verified 07/08/18 11:15 IV Dye baclofen Allergy Unknown Unverified 07/08/18 11:15 cyclobenzaprine Allergy Unknown Unverified 07/08/18 11:15 [From Flexeril] morphine Allergy Unknown Unverified 07/08/18 11:15 Penicillins AdvReac Intermediate RASH Verified 07/08/18 11:15 tizanidine [From Zanaflex] AdvReac Hallucinati Unverified 07/08/18 11:15 ng Home Medications Home Medications Medication Instructions Recorded Confirmed Type bupropion HCl 150 mg PO DAILY 05/27/18 07/08/18 History cevimeline 30 mg PO TID 05/27/18 07/08/18 History clonazepam 1 mg PO DIRECTED PRN 05/27/18 07/08/18 History donepezil 5 mg PO DAILY 05/27/18 07/08/18 History folic acid 2 mg PO QPM 05/27/18 07/08/18 History levothyroxine [Synthroid] 25 mcg PO DAILY 05/27/18 07/08/18 History lisinopril 10 mg PO DAILY 05/27/18 07/08/18 History meloxicam 15 mg PO DAILY 05/27/18 07/08/18 History solifenacin [Vesicare] 10 mg PO QPM 05/27/18 07/08/18 History vortioxetine [Trintellix] 20 mg PO DAILY 05/27/18 07/08/18 History cholecalciferol (vitamin D3) 1,000 unit PO DAILY 07/08/18 07/08/18 History [Vitamin D3] hydroxychloroquine 400 mg PO DAILY 07/08/18 07/08/18 History dazgefxh-uitd-MV-calcium-mins 1 tab PO QAM 07/08/18 07/08/18 History [One-A-Day Women's Petites] oxycodone 5 mg PO DIRECTED PRN 07/08/18 07/08/18 History venlafaxine 300 mg PO QAM 07/08/18 07/08/18 History aspirin [Ecotrin Low Strength] 81 mg PO BID 42 Days #84 tab 07/14/18 Rx docusate sodium 100 mg PO BID 14 Days #28 cap 07/14/18 Rx ferrous gluconate 324 mg PO BIDM 30 Days #60 tab 07/14/18 Rx multivitamin [Daily-Deven] 1 tab PO QAM 30 Days #30 tab 07/14/18 Rx Patient History Medical History Overactive bladder Anxiety Depression Hypothyroid HTN (hypertension) Alzheimers disease (Chronic) Arthritis (Chronic) Anemia Surgical History H/O knee surgery (Resolved) Family History Mother CVA (cerebrovascular accident due to intracerebral hemorrhage) Father CVA (cerebral vascular accident) Social History (Reviewed 07/15/18 @ 10:38 by MITCH Beltran marital status: Current Living Situation: Spouse Current Living Situation Comment: in apartment with Other Information That Helps Us Care for You: No Feels Safe at Home: Yes Safety Concerns: Feels Safe At This Time Smoking Status: Former smoker Tobacco Type: cigarettes Do You Dip or Chew Tobacco: No Smoking End Date: 2011 Hx Alcohol Use: No Hx Substance Use: No Beliefs That Will Affect Care: None Communication Ability: Effective Review of Systems Constitutional: as per Subjective / HPI Eyes: no problem reported Ear, Nose, Mouth, Throat: no dysphagia and no pain with swallowing Respiratory: no cough and no dyspnea Cardiovascular: no chest pain and no palpitations Gastrointestinal: as per Subjective / HPI Genitourinary (Female): no problem reported Musculoskeletal: + joint pain, + swelling and + stiffness left leg Integumentary: no problem reported Neurologic: no problem reported Psychiatric: no problem reported Physical Exam 2 Vital Signs (Past 24 Hours): Last Vital Signs Temp 37.1 C 07/15/18 07:15 Pulse 86 07/15/18 07:15 Resp 16 07/15/18 07:15 BP 149/66 H 07/15/18 07:15 Pulse Ox 94 07/15/18 07:15 Constitutional: WD/WN, vitals as above Eyes: EOM intact bilaterally Respiratory: normal respiratory effort, lungs clear to auscultation Cardiovascular: Rate/Rhythm: regular rate and regular rhythm Heart Sounds: no murmur Gastrointestinal (Abdomen): normal bowel sounds, soft, nontender, no hepatosplenomegaly Musculoskeletal: left pedal edema Skin: no rashes, warm and dry Psychiatric: A+Ox3, euthymic affect Results & Data Laboratory Results Abnormal lab results 07/15/18 07/15/18 Range/Units 05:57 05:57 RBC 2.59 L (4.2-5.4) M/uL Hgb 7.9 L (12.0-16.0) g/dL Hct 24.2 L (37-47) % RDW Std Deviation 49.0 H (36.4-46.3) fL RDW Coeff of Dru 14.8 H (11.5-14.5) % Chester # (Auto) 0.94 H (0.11-0.59) K/uL Absolute Nucleated RBC 0.02 H (0-0) K/uL Potassium 3.1 L D (3.5-5.1) mmol/L Calcium 8.3 L (8.5-10.1) mg/dl Magnesium 1.7 L (1.8-2.4) mg/dl
[2018-07-15] MEDS: PANTOprazole 40 MG TAB PO SCH ×2 (11:19→20:22)
--- NOTE | 2018-07-15 15:05 | Hospitalist Progress Note ---
Date of Service July 15, 2018 Assessment & Plan (1) Femur fracture, left: (2) Fever: (3) HTN (hypertension): (4) Acute blood loss anemia: (5) Hypothyroid: (6) Depression: (7) Dementia: (8) Anxiety: (9) Overactive bladder: (10) DVT prophylaxis: (11) Fall: 76-year-old white female admitted on July 08, 2018 because of left femur fracture, later developed fever postop, was spiking fever up to 101, T- max has trends down Left Distal Femur Fracture s/p Retrograde IM Nail by Dr. Jalloh Per recommendation, DVT prophylaxis including thigh-high TEDs, SCDs, and aspirin twice a day. 50% weightbearing of the left leg and the knee immobilizer. No knee range of motion for now. Can do quad sets and straight leg raises. Had been having spiking fever fever no localizing signs, UA was sent, no UTI, chest x-ray was done no pneumonia, pro-calcitonin neg , blood culture, no DVT Patient does not look toxic or any infection, likely no obvious infectious process going on T-max trends down, possible is resolving of internal hematoma Likely acute blood loss anemia, possible GI bleeding with heme stool positive Hemoglobin stable , GI input appreciated, hold off on invasive GI work up, reconsider EGD if patient's H&H drops or she develops overt GIB , Tomorrow morning lab ordered Hypertension hypothyroidism depression dementia anxiety, stable continue current medication DVT prophylaxis: As per ortho aspirin 81 mg bid Continue PT OT, patient declined to rehab, will do peer to peer review Patient was denied to go to the acute rehab, possible they would approved for the detention therapist Hypokalemia hypomnag replaced Increase activity PTOT, answer questions to patient and patient's daughter Subjective feeling okay, out of bed to chair, report tired, Generally feeling weak, report pain of the hip is 3 out of 10, No more spiking fever however T-max continue coming down, at 37.6 Denies nausea vomiting abdominal pain, denied black stool or tarry stool, denied bright red blood per rectum Review of Systems Constitutional: Positive weakness, or fatigue, Respiratory: no cough, sputum, wheezing, or dyspnea on exertion Cardiac: No chest pain, No orthopnea, No PND, No claudication, Abdomen: No pain, No nausea, No vomiting, No diarrhea, No constipation, Musculoskeletal: See HPI, no muscle pain, No swelling, No calf pain, No problem reported : No dysuria, No urinary frequency, No incontinence, No hematuria Neurologic: No paralysis, No weakness, No numbness/tingling, Psychiatric: No depression symptoms, No anhedonism, No anxiety, Heme: No abnormal bleeding/bruising, No clotting problems, No swollen lymph nodes, Skin: No rash, No itch, No new/changing skin lesions, No color change, No bleeding Physical Exam 2 Vital Signs (Past 24 Hours): Last Vital Signs Temp 37.1 C 07/15/18 07:15 Pulse 86 07/15/18 07:15 Resp 16 07/15/18 07:15 BP 149/66 H 07/15/18 07:15 Pulse Ox 94 07/15/18 07:15 Physical Exam: General Appearance: Looks ok, mild pale, WD/WN, no apparent distress, Eyes: normal inspection, PERRL, EOMI, sclerae normal ENT: normal ENT inspection, hearing grossly normal, pharynx normal Neck: supple, no adenopathy, thyroid normal, no JVD, no carotid bruits, trachea midline Respiratory/Chest: chest non-tender, normal breath sounds, no respiratory distress, no accessory muscle use, breath sounds, rales, wheezing Cardiovascular: regular rate, rhythm, no JVD, no murmur Abdomen: normal bowel sounds, non tender, soft, no organomegaly, Extremities: Local incisions looks great, clean and no erythema, no red, has no drainage, non-tender, normal inspection, no pedal edema, no calf tenderness, normal capillary refill, pelvis stable, capillary refill is normal, no cyanosis clubbing, in foot inwarded 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 , oriented x 3 Skin: normal color, warm/dry, no rash Lymphatic: no adenopathy Results & Data Laboratory Results Laboratory Results - last 24 hr 07/15/18 07/15/18 07/15/18 05:57 05:57 05:57 WBC 8.59 RBC 2.59 L Hgb 7.9 L Hct 24.2 L MCV 93.4 MCH 30.5 MCHC 32.6 RDW Std Deviation 49.0 H RDW Coeff of Dru 14.8 H Plt Count 281 MPV 10.0 Immature Gran % (Auto) 0.2 Neut % (Auto) 70.8 Lymph % (Auto) 15.0 Stevens % (Auto) 10.9 Eos % (Auto) 2.9 Baso % (Auto) 0.2 Immature Gran # (Auto) 0.02 Neut # (Auto) 6.07 Lymph # (Auto) 1.29 Stevens # (Auto) 0.94 H Eos # (Auto) 0.25 Baso # (Auto) 0.02 Absolute Nucleated RBC 0.02 H Nucleated RBC % (auto) 0.2 RBC Morphology Unremarkable PT 10.1 INR 1.0 Sodium 141 Potassium 3.1 L D Chloride 105 Carbon Dioxide 28 Anion Gap 7.0 BUN 10 Creatinine 0.76 Est Cr Clr Drug Dosing 66.0 Est GFR ( Amer) 91.5 Est GFR (Non-Af Amer) 78.9 BUN/Creatinine Ratio 13.6 Glucose 81 Calcium 8.3 L Phosphorus 3.2 Magnesium 1.7 L
[2018-07-15] MEDS: HYDROXYCHLOROQUINE SULFATE 200 MG TAB PO SCH (16:28)
[2018-07-15] MEDS: VESICARE 10 MG PO SCH (18:56)
[2018-07-15] MEDS: FOLIC ACID 1 MG TAB PO SCH (20:22)
[2018-07-15] MEDS: clonazePAM 1 MG TAB PO PRN (21:31)
[2018-07-16] MEDS: LEVOTHYROXINE SODIUM 25 MCG TABLET PO SCH (05:30)
[2018-07-16 08:08] LABS: Basophils # (auto) 0.03 K/uL (0-0.2); Basophils % (auto) 0.3 %; Eosinophils # (auto) 0.27 K/uL (0-0.5); Eosinophils % (auto) 2.7 %; Hematocrit (blood only) 26.4 % (37-47); Hemoglobin 8.6 g/dL (12.0-16.0); Immature Granulocytes # (auto) 0.04 K/uL (0.00-0.02); Immature Granulocytes % (auto) 0.4 %; Lymphocytes # (auto) 1.43 K/uL (1.2-3.4); Lymphocytes % (auto) 14.4 %; Mean Corpuscular Volume 94.6 fL (80-100); Mean Platelet Volume 9.6 fL (7.4-10.4); Monocytes # (auto) 0.98 K/uL (0.11-0.59); Monocytes % (auto) 9.9 %; Neutrophils # (auto) 7.18 K/uL (1.4-6.5); Neutrophils % (auto) 72.3 %; Platelet Count 342 K/uL (130-400); RDW Standard Deviation 50.3 fL (36.4-46.3); Red Blood Count 2.79 M/uL (4.2-5.4); White Blood Count 9.93 K/uL (4.8-10.8)
[2018-07-16 08:09] LABS: Mean Corpuscular Hgb Conc 32.6 g/dL (32-36)
[2018-07-16 08:15] LABS: Prothrombin Time 10.5 Seconds (9.0-12.0)
[2018-07-16 08:23] LABS: Calcium 8.4 mg/dl (8.5-10.1); Est GFR (African American) 79.9; Est GFR (Non-African American) 68.9; Magnesium 2.1 mg/dl (1.8-2.4); Potassium 3.5 mmol/L (3.5-5.1)
[2018-07-16 08:24] LABS: Phosphorus 3.7 mg/dl (2.5-4.9)
[2018-07-16 08:30] LABS: Polychromasia 1+
[2018-07-16] MEDS ORDERED: LISINOPRIL 5 MG TAB PO SCH (09:00)
[2018-07-16] MEDS: FERROUS GLUCONATE 324 MG TAB PO SCH (09:01)
[2018-07-16] MEDS: DONEPEZIL HCL 5 MG TAB PO SCH (09:01)
[2018-07-16] MEDS: CHOLECALCIFEROL 1,000 UNITS TAB PO SCH (09:01)
[2018-07-16] MEDS: DOCUSATE SODIUM 100 MG CAP PO SCH (09:01)
[2018-07-16] MEDS: MULTIVITAMIN TAB PO SCH (09:01)
[2018-07-16] MEDS: CEROVITE ADV FORMULA TAB PO SCH (09:01)
[2018-07-16] MEDS: PANTOprazole 40 MG TAB PO SCH (09:02)
[2018-07-16] MEDS: MELOXICAM 7.5 MG TAB PO SCH (09:02)
[2018-07-16] MEDS: VENLAFAXINE HCL XR 150 MG CAPXR PO SCH ×2 (09:02→10:33)
[2018-07-16] MEDS: BuPROPion XL 150 MG TABCR PO SCH (09:02)
[2018-07-16] MEDS: ASPIRIN 81 MG ECTAB PO SCH (09:02)
[2018-07-16] MEDS: MAGNESIUM OXIDE 400 MG TAB PO SCH (09:03)
[2018-07-16] MEDS: CEVIMELINE 30 MG PO SCH (09:04)
--- NOTE | 2018-07-16 10:56 | Gastroenterology Progress Note ---
Date of Service July 16, 2018 Assessment & Plan (1) Acute blood loss anemia: (2) Heme positive stool: 1. Continue Protonix 40 mg BID. 2. As patient's H&H is improving, no plan for invasive GI work up. 3. Will sign off at this time. Subjective Patient reports concerns about urinary incontinence but denies any GI complaints. H&H has improved today and was noted to be 8.6 and 26.4. Remains on PPI therapy and is without overt GIB sx. Respiratory: no cough and no dyspnea Cardiovascular: no chest pain and no palpitations Gastrointestinal: as per Subjective / HPI Genitourinary (Female): + as per Subjective / HPI Physical Exam 2 Vital Signs (Past 24 Hours): Last Vital Signs Temp 37.8 C H 07/16/18 07:12 Pulse 90 07/16/18 07:12 Resp 19 07/16/18 07:12 BP 155/84 H 07/16/18 07:12 Pulse Ox 92 07/16/18 07:12 Respiratory: normal respiratory effort, lungs clear to auscultation Cardiovascular: Rate/Rhythm: regular rate and regular rhythm Gastrointestinal (Abdomen): Inspection/Auscultation: normal bowel sounds Percussion/Palpation: abdomen soft; abdomen nontender Psychiatric: A+Ox3, euthymic affect
[2018-07-16] MEDS ORDERED: MIRABEGRON ER 25 MG TAB PO SCH (11:00)
[2018-07-16] MEDS: ACETAMINOPHEN 325 MG TAB PO PRN (13:03)
--- NOTE | 2018-07-16 15:50 | Discharge Summary ---
Date of Service July 16, 2018 Principal Diagnosis no Discharge Data Allergies Allergy/AdvReac Type Severity Reaction Status Date / Time Iodinated Contrast- Oral and Allergy Severe HIVES Verified 07/08/18 11:15 IV Dye Penicillins AdvReac Intermediate RASH Verified 07/08/18 11:15 baclofen AdvReac Mild Hallucinati Verified 07/15/18 18:52 ng cyclobenzaprine AdvReac Mild Hallucinati Verified 07/15/18 18:53 [From Flexeril] ng morphine AdvReac Mild Hallucinati Verified 07/15/18 18:53 ng tizanidine [From Zanaflex] AdvReac Hallucinati Unverified 07/08/18 11:15 ng Consultations 07/08/18 15:27 Consult Case Management - Discharge Planning Routine Consult Orthopedic Surgery Routine 07/09/18 16:56 Consult Case Management - Discharge Planning Routine 07/13/18 08:59 Consult Infectious Diseases Routine 07/14/18 16:12 Consult Gastroenterology Routine Procedures Performed Operation Date: 07/09/18 13:00 Actual Procedures p Left Distal Femur Fracture Retrograde IM Nail(Left) - Alan Jalloh MD Ordered Studies 07/08/18 16:15 CT femur LT wo con Stat 07/09/18 13:00 FL femur LT 2V Routine FL fluoroscopy <1hr Routine 07/12/18 17:01 US venous doppler LE BI Stat Hospital Course (1) Femur fracture, left: (2) Fever: (3) HTN (hypertension): (4) Acute blood loss anemia: (5) Hypothyroid: (6) Depression: (7) Dementia: (8) Anxiety: (9) Overactive bladder: (10) DVT prophylaxis: (11) Fall: 76-year-old white female admitted on July 08, 2018 because of left femur fracture, later developed fever postop, was spiking fever up to 101, T- max has trends down and has been continued doing well Left Distal Femur Fracture s/p Retrograde IM Nail by Dr. Jalloh Per recommendation, DVT prophylaxis including thigh-high TEDs, SCDs, and aspirin twice a day. 50% weightbearing of the left leg and the knee immobilizer. No knee range of motion for now. Can do quad sets and straight leg raises. Had been having spiking fever fever no localizing signs, UA was sent, no UTI, chest x-ray was done no pneumonia, pro-calcitonin neg , blood culture, no DVT Patient does not look toxic or any infection, likely no obvious infectious process going on T-max trends down, possible is resolving of internal hematoma Likely acute blood loss anemia, possible GI bleeding with heme stool positive Hemoglobin stable , GI input appreciated, hold off on invasive GI work up, reconsider EGD if patient's H&H drops or she develops overt GIB , Hemoglobin is staying stable, today's hemoglobin 8.6 from 7.9, Recommend from GI, recommend Protonix p.o. twice daily, has talked to secretary of police and updated to Serena Borden about this. Discussed with patient the risk and benefit of continued GI bleeding, such as he is on aspirin 80 mg p.o. twice daily for DVT prophylaxis, however which increase the risk of GI bleeding patient fully understand that urine incontinence , has bee on vesicare, I added Mirabegron 25 mg po daily because of worsening urine incontinence, please follow up this with pcp Effexor is taper off per patient report which was recommended by PCP Hypertension hypothyroidism depression dementia anxiety, stable continue current medication DVT prophylaxis: As per ortho aspirin 81 mg bid Continue PT OT, patient declined to rehab, will do peer to peer review Patient was denied to go to the acute rehab, possible they would approved for the [facility] therapist Hypokalemia hypomnag replaced Increase activity PTOT, answer questions to patient and patient's daughter Subjective upon discharge, Reported worsening urinary has been on Vesicare, Otherwise feeling okay, out of bed to chair, report tired, Review of system upon discharge, Constitutional: Positive weakness, or fatigue, Respiratory: no cough, sputum, wheezing, or dyspnea on exertion Cardiac: No chest pain, No orthopnea, No PND, No claudication, Abdomen: No pain, No nausea, No vomiting, No diarrhea, No constipation, Musculoskeletal: See HPI, no muscle pain, No swelling, No calf pain, No problem reported : No dysuria, No urinary frequency, No hematuria Neurologic: No paralysis, No weakness, No numbness/tingling, Psychiatric: No depression symptoms, No anhedonism, No anxiety, Heme: No abnormal bleeding/bruising, No clotting problems, No swollen lymph nodes, Skin: No rash, No itch, No new/changing skin lesions, No color change, No bleeding Physical Exam upon discharge; General Appearance: Looks ok, mild pale, WD/WN, no apparent distress, Eyes: normal inspection, PERRL, EOMI, sclerae normal ENT: normal ENT inspection, hearing grossly normal, pharynx normal Neck: supple, no adenopathy, thyroid normal, no JVD, no carotid bruits, trachea midline Respiratory/Chest: chest non-tender, normal breath sounds, no respiratory distress, no accessory muscle use, breath sounds, rales, wheezing Cardiovascular: regular rate, rhythm, no JVD, no murmur Abdomen: normal bowel sounds, non tender, soft, no organomegaly, Extremities: Local incisions looks great, clean and no erythema, no red, has no drainage, non-tender, normal inspection, no pedal edema, no calf tenderness, normal capillary refill, pelvis stable, capillary refill is normal, no cyanosis clubbing, in foot inwarded Neurologic/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: 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 , oriented x 3 Skin: normal color, warm/dry, no rash Lymphatic: no adenopathy Lab data upon discharge Laboratory Results - last 24 hr 07/16/18 07/16/18 07/16/18 07:58 07:58 07:58 WBC 9.93 RBC 2.79 L Hgb 8.6 L Hct 26.4 L MCV 94.6 MCH 30.8 MCHC 32.6 RDW Std Deviation 50.3 H RDW Coeff of Dru 15.0 H Plt Count 342 MPV 9.6 Immature Gran % (Auto) 0.4 Neut % (Auto) 72.3 Lymph % (Auto) 14.4 Patrick % (Auto) 9.9 Eos % (Auto) 2.7 Baso % (Auto) 0.3 Immature Gran # (Auto) 0.04 H Neut # (Auto) 7.18 H Lymph # (Auto) 1.43 Patrick # (Auto) 0.98 H Eos # (Auto) 0.27 Baso # (Auto) 0.03 Polychromasia 1+ PT 10.5 INR 1.0 Sodium 140 Potassium 3.5 Chloride 104 Carbon Dioxide 28 Anion Gap 8.0 BUN 11 Creatinine 0.85 Est Cr Clr Drug Dosing 59.0 Est GFR ( Amer) 79.9 Est GFR (Non-Af Amer) 68.9 BUN/Creatinine Ratio 13.0 Glucose 90 Calcium 8.4 L Phosphorus 3.7 Magnesium 2.1 Total Time Total Time Spent Total Time Spent (In Minutes): 35 Total Time Includes: Examination of the Patient, Discharge Planning, Medication Reconciliation and Communication With Other Providers Discharge Plan Discharge Items Patient Disposition: Transfer [facility] Reason For Visit: FEMUR FX Discharge Diagnosis: IM Nailing of Left Femur Fracture Condition: Fair Discharge Goals: Decrease discomfort, Improve disease control, Improve function and Therapeutic intervention Activity: Per 'Additional Instructions' section Activity Comment: May be 50% WB in Knee Immobilizer. No Knee ROM for 2 weeks. Weightbearing: Left partial Weightbearing Comment: 50% Weight-bearing Maximum IN knee Immobilizer. Immobilizer for all WB. Non-emergency contact: Surgeon Call non-emergency contact if: you have any medication questions Follow-up/Referrals: Alan Jalloh MD [Surgeon] - (2 Weeks post-op.) Diet: Heart Healthy Addtl Provider Instructions: 50% Weight-bearing maximum IN Knee Imobilizer No Knee range of motion for 2 weeks Should do quad sets and straight leg exercises in knee imobilizer. you have left femur fracture s/p Retrograde IM Nail by Dr. Alan Jalloh Per recommendation, DVT prophylaxis including thigh-high TEDs, SCDs, and aspirin twice a day. 50% weightbearing of the left leg and the knee immobilizer. No knee range of motion for now. Can do quad sets and straight leg raises. you had been having spiking fever , with no localizing infection signs, you have acute blood loss anemia with stool occult positive , need to continue iron pill , protonix and follow up with pcp and GI you have urine incontinence , has bee on vesicare, I added Mirabegron 25 mg po daily because of your worsening urine incontinence, please follow up this with pcp your Effexor is taper off you need to follow up with your primary care physician in 1 week, - take medication as instructed, never overdose or any misuse, or take with alcohol, because misuse of medicine may cause organ damage or , call me , or your primary care physician if have questions of discharge medicaitons. - call your primary care physician, or go to local emergency room if has any fever/chill, chest pain, shortness of breathing, nausea/vomiting/abdominal pain , facial droop/slurry speech/local weakness, or if has any questions. - fall precaution - diet as instructed - you need to follow up with your subspecialist, such as Dr. Jalloh Prescriptions: New multivitamin [Daily-Deven] Tablet 1 tab PO QAM 30 Days Qty: 30 RF: 0 aspirin [Ecotrin Low Strength] 81 mg Tablet,Delayed Release (Dr/Ec) 81 mg PO BID 42 Days Qty: 84 RF: 0 docusate sodium 100 mg Capsule 100 mg PO BID 14 Days Qty: 28 RF: 0 ferrous gluconate 324 mg (38 mg iron) Tablet 324 mg PO BIDM 30 Days Qty: 60 RF: 0 mirabegron 25 mg tablet extended release 24 hr 25 mg PO DAILY Qty: 30 RF: 0 pantoprazole [Protonix] [address] for susp in packet 40 mg PO BID Qty: 30 RF: 0 Continue lisinopril 10 mg tablet 10 mg PO DAILY RF: 0 donepezil 5 mg tablet 5 mg PO DAILY RF: 0 meloxicam 15 mg tablet 15 mg PO DAILY RF: 0 clonazepam 1 mg tablet 1 mg PO DIRECTED PRN (Reason: Anxiety) RF: 0 levothyroxine 25 mcg tablet 25 mcg PO DAILY RF: 0 cevimeline 30 mg capsule 30 mg PO TID RF: 0 folic acid 1 mg tablet 2 mg PO QPM RF: 0 bupropion HCl 150 mg tablet extended release 24 hr 150 mg PO DAILY RF: 0 solifenacin 10 mg tablet 10 mg PO QPM RF: 0 vortioxetine 20 mg tablet 20 mg PO DAILY RF: 0 hydroxychloroquine 200 mg Tablet 400 mg PO DAILY RF: 0 oxycodone 5 mg Tablet 5 mg PO DIRECTED PRN (Reason: Pain) RF: 0 cholecalciferol (vitamin D3) [Vitamin D3] 1,000 unit Tablet 1,000 unit PO DAILY RF: 0 qlhgoxwq-qdkk-MC-calcium-mins [One-A-Day Women's Petites] 9 mg iron-200 mcg Tablet 1 tab PO QAM RF: 0 Discontinued venlafaxine 150 mg capsule,extended release 24hr 300 mg PO QAM RF: 0 Stand-Alone Forms: [facility], [facility] Discharge Orders: Discharge Order (Routine); Ordered 07/16/18 Ordered By: Nirav Ayers Skilled Items Patient informed of condition?: Yes DNR: No Discharge Level of Care: Acute rehab Communicable Disease: No Discharge Prognosis: Improving Admission Data Admit Date/Time: 07/08/18 12:57 Attending Provider: Nirav Ayers Admit Provider: Meseret Engel Primary Care Provider: JOANNA RODARTE Other Providers: Meseret Engel ; Alan Jalloh ; Arsen Pringle ; Luis Muir ; Amando Valladares Service: Medical Other Interventions: Discharge Summary Assessment (RN) Last Done: 07/16/18 11:22 DC Date/Time DO NOT enter until pt leaves facility: 07/16/18 13:34
== END 2018-07-16 13:34 | DRG 481 ==
LOC: ED 10:11 → 3N 12:57 → SUATTDRO 12:57 → 3N 13:54
DX: F32.9 Major depressive disorder, single episode, unspecified; Z88.0 Allergy status to penicillin; E87.6 Hypokalemia; F02.80 Dementia in other diseases classified elsewhere, unspecified severity, without behavioral disturbance, psychotic disturbance, mood disturbance, and anxiety; Z88.5 Allergy status to narcotic agent; R50.82 Postprocedural fever; Z87.891 Personal history of nicotine dependence; R29.6 Repeated falls; N32.81 Overactive bladder; S72.492A Other fracture of lower end of left femur, initial encounter for closed fracture; W18.30XA Fall on same level, unspecified, initial encounter; Z91.041 Radiographic dye allergy status; E03.9 Hypothyroidism, unspecified; G30.9 Alzheimer's disease, unspecified; F41.9 Anxiety disorder, unspecified; Z96.653 Presence of artificial knee joint, bilateral; D62 Acute posthemorrhagic anemia; Z91.81 History of falling; M97.12XA Periprosthetic fracture around internal prosthetic left knee joint, initial encounter; I10 Essential (primary) hypertension; E83.42 Hypomagnesemia; Z79.899 Other long term (current) drug therapy

== ENCOUNTER 2022-12-07 17:46 | Observation (INO) ==
--- NOTE | 2022-12-07 18:12 | Emergency Department Note ---
Impression & Plan Generalized weakness, Ambulatory dysfunction, LATESHA (acute kidney injury) ED Provider Note HISTORY OF PRESENT ILLNESS: Patient is a 77-year-old female presenting with lower extremity weakness. Patient reports that she is normally ambulatory at her house with a walker. Today, she went to stand up from a seated position and had significant weakness of her bilateral lower extremities, and she fell to the ground. Reports she fell down onto her buttocks. Denies striking her head or loss of consciousness. Denies any numbness or tingling down her legs. Reports that she feels di ffusely weak. Denies any abdominal pain, nausea or vomiting. Denies any dysuria or hematuria. Denies any chest pain or shortness of breath. Reports that she feels like she cannot get up and get around at this time ROS: as above PHYSICAL EXAM: Constitutional: Patient appears in no acute distress. HENT: Head: Normocephalic and atraumatic. Eyes: EOMI, PERRL Mouth/Throat: Mucous membranes moist. Neck: Trachea midline. Neck supple. Cardiovascular: Tachycardic with regular rhythm. No murmurs, rubs or gallops. Intact distal pulses. Pulmonary/Chest: No respiratory distress. Breath sounds clear and equal bilaterally. No wheezes or rales. Abdominal: BS +. Abdomen soft, no tenderness, rebound or guarding. Musculoskeletal: No edema, tenderness or deformity noted. Skin: Warm and dry. No rash, erythema, pallor or cyanosis Psychiatric: Appropriate mood and affect for situation. Neurological: Alert and keenly responsive. CN II-XII grossly intact, moving all extremities equally and fully. MDM: - Vitals signs showed tachycardia. - History obtained via patient. Patient presents with lower extremity weakness. Patient reports that she was unable to get up and get around at her house today. When she tried to get up from seated position, her legs gave out secondary to weakness and she fell onto her buttocks. Denies striking her head or loss of consciousness. Denies any chest pain, shortness of breath, abdominal pain, recent fevers. Denies any dysuria or hematuria - Chronic conditions affecting care: hypothyroidism; HTN - Differential diagnoses include, but are not limited to: pneumonia; UTI; CVA; deconditioning; electrolyte abnormality - Order placed for continuous cardiac monitoring. At this time, monitor showed rate of 75 bpm with normal sinus rhythm, per my interpretation. - External medical records reviewed. - EKG reviewed by myself showed normal sinus rhythm. Rate 74 bpm. QTc 415. No acute ischemic changes. - Laboratory workup interpreted by myself showed normal WBC; slight hyponatremia (Na 134); LATESHA (Cr 1.36); normal troponin; normal TSH - CXR negative for pneumonia, per my interpretation. - Difficulties in obtaining UA. Patient consented to young catheter being placed. - UA negative for infection. - Considered CT head, but patient has no focal deficits on examination. - Discussion was had with social insurance analyst about patient's case and need for admission. - Hospitalist, Dr. Cagle, consulted for admission - Patient admitted to [facility] service for further evaluation and management. ASSESSMENT AND PLAN: Diagnosis: generalized weakness; ambulatory dysfunction; LATESHA Plan: admit Past Med/Surg History Medical History Alzheimers disease Anemia Anxiety Arthritis Depression Hip bursitis, left Hip bursitis, left HTN (hypertension) Hypothyroid Left leg pain Overactive bladder Right peroneal tendonosis Rotator cuff syndrome of left shoulder Trochanteric bursitis, right hip Weakness Surgical History H/O knee surgery History of knee replacement Family History Mother CVA (cerebrovascular accident due to intracerebral hemorrhage) Father Stroke Denies family history of Myocardial infarction Social History Smoking Status: Former smoker Second Hand Exposure: No; Do You Dip or Chew Tobacco: No; Hx Alcohol Use: No Hx Substance Use: No Preferred Language: Greek Communication Ability: Effective Visual Impairment: Limited Hearing Ability: Hard of Hearing Collaborative Physician Required: No Beliefs That Will Affect Care: None marital status: Current Living Situation: Spouse Current Living Situation Comment: in apartment with Feels Safe at Home: Yes Diet: regular Assistive Devices: Brace/Splint/Immobilizer and Walker Allergies Allergies Allergy/AdvReac Type Severity Reaction Status Date / Time Iodinated Contrast Media Allergy Severe HIVES Verified 12/07/22 18:44 baclofen AdvReac Intermediate Hallucinati Verified 12/07/22 18:44 ng cyclobenzaprine AdvReac Intermediate Hallucinati Verified 12/07/22 18:44 [From Flexeril] ng morphine AdvReac Intermediate Hallucinati Verified 12/07/22 18:44 ng Penicillins AdvReac Intermediate RASH Verified 12/07/22 18:44 tizanidine [From Zanaflex] AdvReac Intermediate Hallucinati Verified 12/07/22 18:44 ng Home Meds Home Medications Medication Instructions Recorded Confirmed cholecalciferol (vitamin D3) 50 1,000 unit PO QAM 05/15/19 12/07/22 mcg (2,000 unit) tablet (Vitamin D3) docusate sodium 100 mg capsule 100 mg PO QPM 05/15/19 12/07/22 (Dulcolax Stool Softener (docusate)) folic acid 1 mg tablet 2 mg PO QPM 05/15/19 12/07/22 hydroxychloroquine 200 mg tablet 400 mg PO QPM 05/15/19 12/07/22 lamotrigine 25 mg tablet 75 mg PO QAM 05/15/19 12/07/22 levothyroxine 25 mcg tablet 25 mcg PO DAILYBB 05/15/19 12/07/22 (Synthroid) lisinopril 5 mg tablet 5 mg PO DAILY 05/15/19 12/07/22 chlorpromazine 50 mg tablet 50 mg PO 09/30/19 12/07/22 Prevegen 1 tab PO QAM 11/27/21 12/07/22 atorvastatin 10 mg tablet 10 mg PO DAILY 11/27/21 12/07/22 desvenlafaxine succinate 100 mg 100 mg PO QAM 11/27/21 12/07/22 tablet,extended release 24 hr (Pristiq) desvenlafaxine succinate 25 mg 25 mg PO QAM 11/27/21 12/07/22 tablet,extended release 24 hr donepezil 10 mg tablet 10 mg PO HS 11/27/21 12/07/22 gabapentin 100 mg capsule 100 mg PO TID 12/07/22 12/07/22 lisdexamfetamine 70 mg capsule 70 mg PO QAM 12/07/22 12/07/22 (Vyvanse) multivitamin-iron 9 mg-folic acid 2 tab PO QAM 12/07/22 12/07/22 200 mcg-calcium and minerals tablet (One-A-Day Women's Petites) trazodone 100 mg tablet 100 mg PO HS 12/07/22 12/07/22 ziprasidone HCl 60 mg capsule 60 mg PO BID 12/07/22 12/07/22 Results & Data (ED) Vital Signs Vital Signs - 24 hr 12/07/22 17:57 12/07/22 18:29 12/07/22 18:43 Temperature 37.1 C Temperature Source Oral Pulse Rate 114 H 75 105 H Pulse Rate [Apical] Pulse Rhythm Regular Regular Pulse Strength Normal Respiratory Rate 15 Respiratory Effort / Characteristics Non-Labored Spontaneous Respiratory Depth Normal Respiratory Pattern Regular Blood Pressure 106/61 Blood Pressure [Right Arm] Blood Pressure Mean 76 Blood Pressure Mean [Right Arm] Pulse Oximetry 94 Oxygen Delivery Method Room Air Room Air Sepsis Recent Fever Within 48 Hours No Sepsis New/Unexplained Change in Mental Status No Sepsis Action Taken by Nursing No Action Required 12/07/22 19:32 12/07/22 21:26 Temperature Temperature Source Pulse Rate Pulse Rate [Apical] 74 75 Pulse Rhythm Pulse Strength Respiratory Rate 16 16 Respiratory Effort / Characteristics Respiratory Depth Respiratory Pattern Blood Pressure Blood Pressure [Right Arm] 108/67 109/64 Blood Pressure Mean Blood Pressure Mean [Right Arm] 80 79 Pulse Oximetry 95 95 Oxygen Delivery Method Room Air Room Air Sepsis Recent Fever Within 48 Hours Sepsis New/Unexplained Change in Mental Status Sepsis Action Taken by Nursing Laboratory Data 12/07/22 19:30 12/07/22 19:30 Lab Results 12/07/22 12/07/22 12/07/22 Range/Units 18:00 19:30 19:30 WBC 10.31 (4.8-10.8) K/ul RBC 4.25 (4.20-5.40) M/uL Hgb 13.6 (12.0-16.0) g/dl Hct 40.0 (37.0-47.0) % MCV 94.1 (80.0-100.0) fL MCH 32.0 (25.0-34.0) pg MCHC 34.0 (32.0-36.0) g/dL RDW Std Deviation 43.5 (36.4-46.3) fL RDW Coeff of Dru 12.6 (11.5-14.5) % Plt Count 207 (130-400) K/uL MPV 9.9 (9.4-12.4) fL Immature Gran % (Auto) 0.3 % Neut % (Auto) 76.9 % Lymph % (Auto) 11.1 % [place] % (Auto) 11.0 % Eos % (Auto) 0.3 % Baso % (Auto) 0.4 % Neut # (Auto) 7.94 H (1.40-6.50) K/uL Lymph # (Auto) 1.14 L (1.2-3.4) K/uL [place] # (Auto) 1.13 H (0.11-0.59) K/uL Eos # (Auto) 0.03 (0-0.50) K/uL Baso # (Auto) 0.04 (0-0.2) K/uL Immature Gran # (Auto) 0.03 (0.01-0.20) K/uL Sodium 134 L (136-145) mmol/L Potassium 4.5 (3.5-5.1) mmol/L Chloride 100 (98-107) mmol/L Carbon Dioxide 27 (21-32) mmol/L Anion Gap 7 (3-11) BUN 28 H (6-23) mg/dl Creatinine 1.36 H (0.6-1.2) mg/dl Est Cr Clr Drug Dosing 36.6 ml/min Est GFR ( Amer) 43.7 ml/min Est GFR (Non-Af Amer) 37.7 ml/min BUN/Creatinine Ratio 20.6 H (10-20) Glucose 96 (70-99(Fasting)) mg/dl Lactate (0.4-2.0) mmol/L Calcium 9.9 (8.6-10.3) mg/dl Magnesium 2.1 (1.7-2.4) mg/dl Total Bilirubin 0.3 (0.2-1.0) mg/dl AST 22 (13-39) U/L ALT 19 (7-52) U/L Alkaline Phosphatase 91 (34-104) U/L Troponin I High Sens 4.2 (0-14) pg/ml Total Protein 7.0 (6.0-8.3) gm/dl Albumin 4.2 (3.4-5.0) gm/dl Globulin 2.8 (2.5-4.0) gm/dl Albumin/Globulin Ratio 1.5 (0.9-2) TSH (0.300-4.500) uIu/ml Urine Color Urine Appearance (Clear) Urine pH (4.5-7.5) Ur Specific [place] (1.000-1.030) Urine Protein (Negative) Urine Glucose (UA) (Negative) Urine Ketones (Negative) Urine Blood (Negative) Urine Nitrite (Negative) Urine Bilirubin (Negative) Urine Urobilinogen (Negative) Ur Leukocyte Esterase (Negative) SARS-CoV-2, RNA, NAAT NEGATIVE (NEGATIVE) 12/07/22 12/07/22 12/07/22 Range/Units 19:30 19:30 20:40 WBC (4.8-10.8) K/ul RBC (4.20-5.40) M/uL Hgb (12.0-16.0) g/dl Hct (37.0-47.0) % MCV (80.0-100.0) fL MCH (25.0-34.0) pg MCHC (32.0-36.0) g/dL RDW Std Deviation (36.4-46.3) fL RDW Coeff of Dru (11.5-14.5) % Plt Count (130-400) K/uL MPV (9.4-12.4) fL Immature Gran % (Auto) % Neut % (Auto) % Lymph % (Auto) % [place] % (Auto) % Eos % (Auto) % Baso % (Auto) % Neut # (Auto) (1.40-6.50) K/uL Lymph # (Auto) (1.2-3.4) K/uL [place] # (Auto) (0.11-0.59) K/uL Eos # (Auto) (0-0.50) K/uL Baso # (Auto) (0-0.2) K/uL Immature Gran # (Auto) (0.01-0.20) K/uL Sodium (136-145) mmol/L Potassium (3.5-5.1) mmol/L Chloride (98-107) mmol/L Carbon Dioxide (21-32) mmol/L Anion Gap (3-11) BUN (6-23) mg/dl Creatinine (0.6-1.2) mg/dl Est Cr Clr Drug Dosing ml/min Est GFR ( Amer) ml/min Est GFR (Non-Af Amer) ml/min BUN/Creatinine Ratio (10-20) Glucose (70-99(Fasting)) mg/dl Lactate 1.0 (0.4-2.0) mmol/L Calcium (8.6-10.3) mg/dl Magnesium (1.7-2.4) mg/dl Total Bilirubin (0.2-1.0) mg/dl AST (13-39) U/L ALT (7-52) U/L Alkaline Phosphatase (34-104) U/L Troponin I High Sens (0-14) pg/ml Total Protein (6.0-8.3) gm/dl Albumin (3.4-5.0) gm/dl Globulin (2.5-4.0) gm/dl Albumin/Globulin Ratio (0.9-2) TSH 2.672 (0.300-4.500) uIu/ml Urine Color Yellow Urine Appearance Clear (Clear) Urine pH 5.5 (4.5-7.5) Ur Specific [place] 1.015 (1.000-1.030) Urine Protein Negative (Negative) Urine Glucose (UA) Negative (Negative) Urine Ketones Negative (Negative) Urine Blood Negative (Negative) Urine Nitrite Negative (Negative) Urine Bilirubin Negative (Negative) Urine Urobilinogen Negative (Negative) Ur Leukocyte Esterase Negative (Negative) SARS-CoV-2, RNA, NAAT (NEGATIVE) Imaging Data Radiologist's Impression: Chest X-Ray 12/07/22 18:09 XR chest 1V portable HISTORY: 77 years-old Female weakness acute weakness COMPARISON: 11/27/2021 TECHNIQUE: AP view of the chest FINDINGS: Cardiac mediastinal and hilar silhouettes are unchanged. No pneumothorax, pleural effusion, airspace consolidation or pulmonary edema. Extensive partially imaged cervical, thoracic and lumbar spinal fusion hardware. Hardware appears intact. Multiple chronic rib fractures. IMPRESSION: No acute process. ACT 112: Negative or not required by law. The above report was generated using voice recognition software. It may contain grammatical, syntax or spelling errors. Electronically signed by: Caleb Pretty M.D. 12/07/2022 6:53 PM Discharge Plan Visit Data Chief Complaint: Leg Weakness, Bilateral Stated Complaint: WEAKNESS, UNABLE TO AMBULATE ED Provider: Yuli Rios Discharge Problem: Generalized weakness, Ambulatory dysfunction, LATESHA (acute kidney injury) Forms Stand Alone Forms: My [facility] Prescriptions Prescriptions: No Action cholecalciferol (vitamin D3) [Vitamin D3] 2,000 unit Tablet 1,000 unit PO QAM lamotrigine 25 mg Tablet 75 mg PO QAM lisinopril 5 mg Tablet 5 mg PO DAILY levothyroxine [Synthroid] 25 mcg Tablet 25 mcg PO DAILYBB docusate sodium [Dulcolax Stool Softener (dss)] 100 mg Capsule 100 mg PO QPM hydroxychloroquine 200 mg Tablet 400 mg PO QPM Rx Instructions: 2 tablet dose folic acid 1 mg Tablet 2 mg PO QPM chlorpromazine 50 mg tablet 50 mg PO HS atorvastatin 10 mg tablet 10 mg PO DAILY desvenlafaxine succinate [Pristiq] 100 mg tablet extended release 24 hr 100 mg PO QAM Rx Instructions: TOTAL DOSE 125 MG--TAKES WITH 25 MG TAB. desvenlafaxine succinate 25 mg tablet extended release 24 hr 25 mg PO QAM Rx Instructions: TOTAL DOSE 125 MG--TAKES WITH 100 MG TAB. donepezil 10 mg tablet 10 mg PO HS Prevegen 1 tab PO QAM trazodone 100 mg tablet 100 mg PO HS gabapentin 100 mg Capsule 100 mg PO TID ziprasidone HCl 60 mg Capsule 60 mg PO BID Rx Instructions: give with food (meal/snack) Vyvanse 70 mg Capsule 70 mg PO QAM One-A-Day Women's Petites 9 mg iron-200 mcg Tablet 2 tab PO QAM Referrals Referrals: Mary Mccarthy MD [Primary Care Provider] -
--- NOTE | 2022-12-07 18:55 | XRay Report ---
XR chest 1V portable HISTORY: 77 years-old Female weakness acute weakness COMPARISON: 11/27/2021 TECHNIQUE: AP view of the chest FINDINGS: Cardiac mediastinal and hilar silhouettes are unchanged. No pneumothorax, pleural effusion, airspace consolidation or pulmonary edema. Extensive partially imaged cervical, thoracic and lumbar spinal fus ion hardware. Hardware appears intact. Multiple chronic rib fractures. IMPRESSION: No acute process. ACT 112: Negative or not required by law. The above report was generated using voice recognition software. It may contain grammatical, syntax o r spelling errors. Electronically signed by: Caleb Pretty M.D. 12/07/2022 6:53 PM
[2022-12-07 19:51] LABS: Basophils # (auto) 0.04 K/uL (0-0.2); Basophils % (auto) 0.4 %; Eosinophils # (auto) 0.03 K/uL (0-0.50); Eosinophils % (auto) 0.3 %; Hemoglobin 13.6 g/dl (12.0-16.0); Immature Granulocytes # (auto) 0.03 K/uL (0.01-0.20); Immature Granulocytes % (auto) 0.3 %; Lymphocytes # (auto) 1.14 K/uL (1.2-3.4); Lymphocytes % (auto) 11.1 %; Mean Corpuscular Volume 94.1 fL (80.0-100.0); Mean Platelet Volume 9.9 fL (9.4-12.4); Monocytes # (auto) 1.13 K/uL (0.11-0.59); Neutrophils # (auto) 7.94 K/uL (1.40-6.50); Neutrophils % (auto) 76.9 %; Platelet Count 207 K/uL (130-400); RDW Coefficient of Variation 12.6 % (11.5-14.5); RDW Standard Deviation 43.5 fL (36.4-46.3); Red Blood Count 4.25 M/uL (4.20-5.40); White Blood Count 10.31 K/ul (4.8-10.8)
[2022-12-07 20:06] LABS: Albumin Globulin Ratio 1.5 (0.9-2); Albumin Level 4.2 gm/dl (3.4-5.0); BUN Creatinine Ratio 20.6 (10-20); Bilirubin,Total 0.3 mg/dl (0.2-1.0); Calcium 9.9 mg/dl (8.6-10.3); Creatinine Clr Calc Pharmacy 36.6 ml/min; Est GFR (African American) 43.7 ml/min; Est GFR (Non-African American) 37.7 ml/min; Globulin 2.8 gm/dl (2.5-4.0); Magnesium 2.1 mg/dl (1.7-2.4); Potassium 4.5 mmol/L (3.5-5.1)
[2022-12-07 20:14] LABS: Troponin I High Sensitivity 4.2 pg/ml (0-14)
[2022-12-07 21:46] LABS: Appearance Urine Clear (Clear); Bilirubin Urine Negative (Negative); Blood Urine Negative (Negative); Color Urine Yellow; Glucose Urine UA Negative (Negative); Ketones Urine Negative (Negative); Leukocyte Esterase Urine Negative (Negative); Nitrite Urine Negative (Negative); Protein Urine Negative (Negative); Specific Gravity Urine 1.015 (1.000-1.030); Urobilinogen Urine Negative (Negative); pH Urine 5.5 (4.5-7.5)
--- NOTE | 2022-12-07 22:04 | History & Physical Report ---
Date of Service December 07, 2022 Assessment & Plan (1) Generalized weakness: Plan: 77yo Female with PMH anxiety depression dementia HTN hypothyroidism here for weakness fall. Weakness -no record of hitting head -recently discharged from PT for backsliding physical condition -admit to med/surg obs -PT/OT ordered LATESHA -creat 1.36 -ordered NSS 125mls/hr -hold lisinopril Dementia/Depression/Anxiety -continue donepezil -continue chlorpromazine, desvenlafaxine, gabapentin, lamotrigine, lisdexamfetamine, ziprasidone Rheumatoid arthritis -continue hydroxychloroquine HLD -continue atorvastatin Hypothyroidism -continue levothyroxine Insomnia -continue trazodone FENa: regular Code Status: Full DVT PPX: heparin PT/OT: ordered Dispo: med/surg Kathy Last D.O. PGY 3, FCM (2) Ambulatory dysfunction: (3) LATESHA (acute kidney injury): (4) Hypothyroid: (5) HTN (hypertension): (6) Alzheimers disease: (7) Anxiety: History of Present Illness Chief Complaint: Fall, Weakness Primary Care Provider: Mary Mccarthy MD 77yo Female with PMH anxiety depression dementia HTN hypothyroidism here for weakness fall. Patient states ever since her femur fracture 2 years ago she's been feeling weak, got weaker since she broke her neck last year. Today she was trying to get up to stand, found her legs could not support her, sank to the ground landed on her butt. Family came to help her stand up placed her in a lift, she was not able to transfer from the lift to her wheelchair. She denies any recent fever headache nausea SOB chest pain abd pain loss of appetite recent illness or recent change of medication. Occasionally describes pain in her calves that make it hard to walk. Per daughter, patient has been through physical therapy numerous times over the past 2 years, has recently been discharged from physical therapy due to backsliding of her physical ability. She gets around with either a walker or wheelchair. She lives with , helps her with medications. Patient has a psychiatrist Dr. Conway who is managing her psych medications. Allergies Allergy/AdvReac Type Severity Reaction Status Date / Time Iodinated Contrast Media Allergy Severe HIVES Verified 12/07/22 18:44 baclofen AdvReac Intermediate Hallucinati Verified 12/07/22 18:44 ng cyclobenzaprine AdvReac Intermediate Hallucinati Verified 12/07/22 18:44 [From Flexeril] ng morphine AdvReac Intermediate Hallucinati Verified 12/07/22 18:44 ng Penicillins AdvReac Intermediate RASH Verified 12/07/22 18:44 tizanidine [From Zanaflex] AdvReac Intermediate Hallucinati Verified 12/07/22 18:44 ng Home Medications Medication Instructions Recorded Confirmed Type cholecalciferol (vitamin D3) 50 1,000 unit PO QAM 05/15/19 12/07/22 History mcg (2,000 unit) tablet (Vitamin D3) docusate sodium 100 mg capsule 100 mg PO QPM 05/15/19 12/07/22 History (Dulcolax Stool Softener (docusate)) folic acid 1 mg tablet 2 mg PO QPM 05/15/19 12/07/22 History hydroxychloroquine 200 mg tablet 400 mg PO QPM 05/15/19 12/07/22 History lamotrigine 25 mg tablet 75 mg PO QAM 05/15/19 12/07/22 History levothyroxine 25 mcg tablet 25 mcg PO DAILYBB 05/15/19 12/07/22 History (Synthroid) lisinopril 5 mg tablet 5 mg PO DAILY 05/15/19 12/07/22 History chlorpromazine 50 mg tablet 50 mg PO HS 09/30/19 12/07/22 History Prevegen 1 tab PO QAM 11/27/21 12/07/22 History atorvastatin 10 mg tablet 10 mg PO DAILY 11/27/21 12/07/22 History desvenlafaxine succinate 100 mg 100 mg PO QAM 11/27/21 12/07/22 History tablet,extended release 24 hr (Pristiq) desvenlafaxine succinate 25 mg 25 mg PO QAM 11/27/21 12/07/22 History tablet,extended release 24 hr donepezil 10 mg tablet 10 mg PO HS 11/27/21 12/07/22 History gabapentin 100 mg capsule 100 mg PO TID 12/07/22 12/07/22 History lisdexamfetamine 70 mg capsule 70 mg PO QAM 12/07/22 12/07/22 History (Vyvanse) multivitamin-iron 9 mg-folic acid 2 tab PO QAM 12/07/22 12/07/22 History 200 mcg-calcium and minerals tablet (One-A-Day Women's Petites) trazodone 100 mg tablet 100 mg PO HS 12/07/22 12/07/22 History ziprasidone HCl 60 mg capsule 60 mg PO BID 12/07/22 12/07/22 History Past Med/Surg History Medical History Alzheimers disease Anemia Anxiety Arthritis Depression Hip bursitis, left Hip bursitis, left HTN (hypertension) Hypothyroid Left leg pain Overactive bladder Right peroneal tendonosis Rotator cuff syndrome of left shoulder Trochanteric bursitis, right hip Weakness Surgical History H/O knee surgery History of knee replacement Family History Mother CVA (cerebrovascular accident due to intracerebral hemorrhage) Father Stroke Denies family history of Myocardial infarction Social History Smoking Status: Former smoker Cigarettes Per Day: 1 pack/day; Smoking End Date: at age [age] years old; Second Hand Exposure: No; Do You Dip or Chew Tobacco: No; Hx Alcohol Use: No Hx Substance Use: Yes Last Used Substance: Days (ago) Last Used Substance Other:: uses medical marijuana to sleep, took night of 12/06/2022 Preferred Language: Nigerien Communication Ability: Impaired Communication Ability Comment: reports difficulting writing Visual Impairment: Limited Hearing Ability: Hard of Hearing Visual Training Aide Required: No Beliefs That Will Affect Care: None marital status: Current Living Situation: Spouse Current Living Situation Comment: Lives with at home Other Information That Helps Us Care for You: No Feels Safe at Home: Yes Safety Concerns: Feels Safe At This Time Diet: regular Assistive Devices: Walker and Wheelchair Physical Exam Constitutional: well developed, well nourished, cooperative and comfortable Eyes: PERRL, conjunctivae normal, anicteric sclerae ENMT: external ear and nose normal, oropharynx normal Neck: trachea midline, no thyromegaly Respiratory: normal respiratory effort, lungs clear to auscultation Cardiovascular: Rate/Rhythm: regular rate and regular rhythm Gastrointestinal (Abdomen): Inspection/Auscultation: abdomen normal to inspection Percussion/Palpation: abdomen soft; abdomen nontender Musculoskeletal: 5/5 strength in upper extremities against resistance. 4/5 strength b/l LE knee flexion against gravity, 3/5 right foot dorsiflexion against resistance, 4/5 left foot dorsiflexion, 5/5 b/l foot plantarflexion Skin: no rashes, warm and dry Results & Data Results & Data Vital Signs (Past 12 Hours) Vital Signs Temp Pulse Pulse Resp BP BP Pulse Ox 12/07/22 21:26 75 16 109/64 95 12/07/22 19:32 74 16 108/67 95 12/07/22 18:43 105 H 94 12/07/22 18:29 75 12/07/22 17:57 37.1 C 114 H 15 106/61 O2 Del Method 12/07/22 21:26 Room Air 12/07/22 19:32 Room Air 12/07/22 18:43 Room Air 12/07/22 18:29 12/07/22 17:57 Room Air Supervising Physician Co-Signing Physician Notes Attending addendum: I have physically seen this patient, have supervised the medical residents activities, and agree with the H&P unless as otherwise noted. Assessment and Plan: Progressive generalized weakness- Patient is mildly dehydrated, otherwise no direct cause Consult PT/OT Patient may need inpatient rehab Acute kidney injury- Creatinine 1.36, with base 1.14 NSS at 125 MLS per hour x1 L Hold lisinopril Recheck laboratories in a.m. Dementia/depression/anxiety/insomnia- Continue donepezil, chlorpromazine, desvenlafaxine, gabapentin, lamotrigine, lisdexamfetamine, ziprasidone, and trazodone should consider polypharmacy as at the very least a contributing factor to if not a cause of her primary symptoms RA- Continue hydroxychloroquine hypothyroidism- Continue levothyroxine TSH okay Resident Activity Tracking Resident Involvement: Resident Care Provided Care Provided: Adult Hospital Medicine
[2022-12-07] MEDS: SODIUM CHLORIDE 0.9% 1000ML 1,000 ML IV SCH (23:15)
--- NOTE | 2022-12-08 05:38 | Billing Data ---
Date of Service December 08, 2022 Coding Level of Care Code 39389 INT INP/OBS CARE
[2022-12-08] MEDS: HEPARIN SOD 5,000 UNIT/0.5 ML VIAL SQ SCH ×3 (05:48→20:32)
[2022-12-08] MEDS: LEVOTHYROXINE SODIUM 25 MCG TABLET PO SCH (05:48)
[2022-12-08] MEDS: ACETAMINOPHEN 325 MG TAB PO PRN (05:50)
[2022-12-08] MEDS: SODIUM CHLORIDE 0.9% 1000ML 1,000 ML IV SCH (07:00)
--- NOTE | 2022-12-08 07:40 | Hospitalist Progress Note ---
Date of Service December 08, 2022 Assessment & Plan (1) Generalized weakness: Plan: 77yo Female with PMH anxiety depression dementia HTN hypothyroidism s/p mechanical fall and weakness Weakness, mechanical fall no injury -recently discharged from PT for backsliding physical condition -PT/OT ordered, did poorly at PT, will have orthotic eval brace for foot drop LATESHA, ckd 3 -creat 1.36 -ordered NSS 125mls/hr stopped after 2 liters -hold lisinopril bp is stable Dementia/Depression/Anxiety -continue donepezil -continue chlorpromazine, desvenlafaxine, gabapentin, lamotrigine, lisdexamfetamine, ziprasidone Rheumatoid arthritis -continue hydroxychloroquine HLD -continue atorvastatin Hypothyroidism -continue levothyroxine Insomnia -continue trazodone FENa: regular Code Status: Full DVT PPX: heparin PT/OT: ordered (2) Ambulatory dysfunction: (3) LATESHA (acute kidney injury): (4) Hypothyroid: (5) HTN (hypertension): (6) Alzheimers disease: (7) Anxiety: Admission and Anticipated Discharge Date Admission Date: December 07, 2022 Subjective patient was seen in the company of her . Patient is prehospital issues with regards to her dropfoot in the left with an orthotic device that does not fit correctly patient states upon standing she gets extreme thigh discomfort and she fell to the ground could not get up she has persistent issues regarding this cannot ambulate or stand even with a walker at this time seems mostly to be musculoskeletal she has some contractures to her foot from not wearing her brace Physical Exam Physical Exam: pt is with recurrent discomfort to LE and did poorly at PT, may benefit from orthotic eval and possible rehab referral did have psychiatry eval and streamlined polypharmacy Results & Data Results & Data Vital Signs (Past 12 Hours) Vital Signs Temp Pulse Pulse Resp BP BP Pulse Ox 12/07/22 23:45 97.9 F 90 18 102/57 L 94 12/07/22 23:13 72 16 12/07/22 21:26 75 16 109/64 95 O2 Del Method 12/07/22 23:45 Room Air 12/07/22 23:13 12/07/22 21:26 Room Air PG Care Time/CCT Total # of Minutes Spent Total Time Spent with Patient: Total time spent is greater than 50% in coordination of care (as documented) at patient's floor/unit and/or counseling patient: Coding Level of Care Code 27035 SUB INP/OBS CARE 2/35MIN Diagnoses Generalized weakness R53.1 Ambulatory dysfunction R26.2 LATESHA (acute kidney injury) N17.9 Hypothyroid E03.9 HTN (hypertension) I10 Alzheimers disease G30.9; F02.80 Anxiety F41.9
[2022-12-08 07:49] LABS: BUN Creatinine Ratio 19.1 (10-20); Calcium 8.7 mg/dl (8.6-10.3); Creatinine Clr Calc Pharmacy 43.2 ml/min; Est GFR (African American) 53.5 ml/min; Est GFR (Non-African American) 46.2 ml/min; Potassium 4.5 mmol/L (3.5-5.1)
[2022-12-08] MEDS ORDERED: DESVENLAFAXINE SUCCINATE 25 MG PO SCH (09:00)
[2022-12-08] MEDS: ATORVASTATIN 10 MG TAB PO SCH (10:39)
[2022-12-08] MEDS: GABAPENTIN 100 MG CAP PO SCH ×3 (10:39→20:31)
[2022-12-08] MEDS: lamoTRIgine 25 MG TAB PO SCH (10:40)
[2022-12-08] MEDS: DICLOFENAC SOD 1% GEL 100 GM TUBE EXT SCH ×2 (11:31→22:02)
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
[2022-12-08] MEDS: DESVENLAFAXINE SUCCINATE 100 MG PO SCH (15:04)
[2022-12-08] MEDS: DESVENLAFAXINE SUCCINATE 25 MG PO SCH (15:04)
[2022-12-08] MEDS ORDERED: chlorproMAZINE HCL 25 MG TAB PO PRN (15:04)
--- NOTE | 2022-12-08 18:09 | Electrocardiogram Report ---
Test Reason : Blood Pressure : / mmHG Vent. 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
[2022-12-08] MEDS: DONEPEZIL HCL 10 MG TAB PO SCH (20:31)
[2022-12-08] MEDS: traZODone HCL 100 MG TAB PO SCH (20:32)
[2022-12-08] MEDS: HYDROXYCHLOROQUINE SULFATE 200 MG TAB PO SCH (20:32)
[2022-12-08] MEDS ORDERED: chlorproMAZINE HCL 25 MG TAB PO SCH (21:00)
[2022-12-08] MEDS: DOCUSATE SODIUM 100 MG CAP PO SCH (22:02)
[2022-12-09] MEDS: LEVOTHYROXINE SODIUM 25 MCG TABLET PO SCH (05:43)
[2022-12-09] MEDS: HEPARIN SOD 5,000 UNIT/0.5 ML VIAL SQ SCH ×3 (05:43→20:23)
[2022-12-09] MEDS: ATORVASTATIN 10 MG TAB PO SCH (08:55)
[2022-12-09] MEDS: DESVENLAFAXINE SUCCINATE 25 MG PO SCH (08:56)
[2022-12-09] MEDS: DESVENLAFAXINE SUCCINATE 100 MG PO SCH (08:56)
[2022-12-09] MEDS: GABAPENTIN 100 MG CAP PO SCH ×3 (08:57→20:23)
[2022-12-09] MEDS: DICLOFENAC SOD 1% GEL 100 GM TUBE EXT SCH ×2 (08:57→20:21)
[2022-12-09] MEDS: lamoTRIgine 25 MG TAB PO SCH (08:58)
[2022-12-09] MEDS: ACETAMINOPHEN 325 MG TAB PO PRN (09:02)
--- NOTE | 2022-12-09 16:28 | Hospitalist Progress Note ---
Date of Service December 09, 2022 Assessment & Plan (1) Generalized weakness: Plan: 77yo Female with PMH anxiety depression dementia HTN hypothyroidism s/p mechanical fall and weakness Weakness, mechanical fall no injury -recently discharged from PT for backsliding physical condition -PT/OT ordered, did poorly at PT, evaluation for post discharge rehab. Orthotics evaluated brace and feels that he can be adjusted as an outpatient LATESHA, ckd 3 -creat 1.36 -ordered NSS 125mls/hr stopped after 2 liters -hold lisinopril bp is stable Dementia/Depression/Anxiety -continue donepezil -continue chlorpromazine, desvenlafaxine, gabapentin, lamotrigine, lisdexamfetamine, ziprasidone Rheumatoid arthritis -continue hydroxychloroquine HLD -continue atorvastatin Hypothyroidism -continue levothyroxine Insomnia -continue trazodone at bedtime only Code Status: Full DVT PPX: heparin (2) Ambulatory dysfunction: (3) LATESHA (acute kidney injury): (4) Hypothyroid: (5) HTN (hypertension): (6) Alzheimers disease: (7) Anxiety: Admission and Anticipated Discharge Date Admission Date: December 08, 2022 Subjective patient's had some transient improvement of her leg but she has not been ambulating significantly. No help with Voltaren gel. Orthotics did evaluate her brace feels it could be adjusted to try to do so as an outpatient with appropriate referral patient states the reason she presented is that upon standing she gets extreme thigh discomfort and she fell to the ground could not get up upon PT OT evaluation patient qualifies for rehab Physical Exam Physical Exam: patient is much less painful than 1 day prior improvement of mood with alteration of some of her psychotropic medications significant limitation with ambulation problems evaluation for rehabilitation placement did have psychiatry eval and streamlined polypharmacy Results & Data Results & Data Vital Signs (Past 12 Hours) Vital Signs Temp Pulse Resp BP BP Pulse Ox O2 Del Method 12/09/22 14:37 97.7 F 72 17 119/72 96 Room Air 12/09/22 07:30 98.4 F 60 16 125/72 96 Room Air PG Care Time/CCT Total # of Minutes Spent Total Time Spent with Patient: Total time spent is greater than 50% in coordination of care (as documented) at patient's floor/unit and/or counseling patient: Coding Level of Care Code 46404 SUB INP/OBS CARE 235MIN Diagnoses Generalized weakness R53.1 Ambulatory dysfunction R26.2 LATESHA (acute kidney injury) N17.9 Hypothyroid E03.9 HTN (hypertension) I10 Alzheimers disease G30.9; F02.80 Anxiety F41.9
[2022-12-09] MEDS: DOCUSATE SODIUM 100 MG CAP PO SCH (20:21)
[2022-12-09] MEDS: HYDROXYCHLOROQUINE SULFATE 200 MG TAB PO SCH (20:23)
[2022-12-09] MEDS: DONEPEZIL HCL 10 MG TAB PO SCH (20:23)
[2022-12-09] MEDS: traZODone HCL 100 MG TAB PO SCH (20:23)
[2022-12-10] MEDS: LEVOTHYROXINE SODIUM 25 MCG TABLET PO SCH (05:31)
[2022-12-10] MEDS: HEPARIN SOD 5,000 UNIT/0.5 ML VIAL SQ SCH ×3 (05:31→20:40)
[2022-12-10 08:49] LABS: BUN Creatinine Ratio 9.2 (10-20); Calcium 9.2 mg/dl (8.6-10.3); Creatinine Clr Calc Pharmacy 50.7 ml/min; Est GFR (African American) 64.9 ml/min; Magnesium 1.7 mg/dl (1.7-2.4); Potassium 4.3 mmol/L (3.5-5.1)
[2022-12-10] MEDS: ATORVASTATIN 10 MG TAB PO SCH (11:31)
[2022-12-10] MEDS: DESVENLAFAXINE SUCCINATE 25 MG PO SCH (11:32)
[2022-12-10] MEDS: DESVENLAFAXINE SUCCINATE 100 MG PO SCH (11:32)
[2022-12-10] MEDS: GABAPENTIN 100 MG CAP PO SCH ×3 (11:33→20:39)
[2022-12-10] MEDS: DICLOFENAC SOD 1% GEL 100 GM TUBE EXT SCH ×2 (11:33→20:39)
[2022-12-10] MEDS: lamoTRIgine 25 MG TAB PO SCH (11:33)
[2022-12-10] MEDS: ACETAMINOPHEN 325 MG TAB PO PRN (14:33)
--- NOTE | 2022-12-10 17:53 | Hospitalist Progress Note ---
Date of Service December 10, 2022 Assessment & Plan (1) Generalized weakness: Plan: 77yo Female with PMH anxiety depression dementia HTN hypothyroidism s/p mechanical fall and weakness Weakness, mechanical fall no injury -recently discharged from PT for backsliding physical condition -PT/OT ordered, did poorly at PT, evaluation for post discharge rehab. Orthotics evaluated brace and feels that he can be adjusted as an outpatient Will need a Rx at discharge for outpt eval and treat for foot drop brace LATESHA, ckd 3 -creat 1.36 -ordered NSS 125mls/hr stopped after 2 liters -hold lisinopril bp is stable Dementia/Depression/Anxiety -continue donepezil -continue chlorpromazine, desvenlafaxine, gabapentin, lamotrigine, lisdexamfetamine, ziprasidone Rheumatoid arthritis -continue hydroxychloroquine HLD -continue atorvastatin Hypothyroidism -continue levothyroxine Insomnia -continue trazodone at bedtime only Code Status: Full DVT PPX: heparin (2) Ambulatory dysfunction: (3) LATESHA (acute kidney injury): (4) Hypothyroid: (5) HTN (hypertension): (6) Alzheimers disease: (7) Anxiety: Admission and Anticipated Discharge Date Admission Date: December 08, 2022 Subjective patient's had some transient improvement of her leg but she has not been ambulating significantly. No help with Voltaren gel. Orthotics did evaluate her brace feels it could be adjusted Will need a Rx at discharge for outpt eval and treat for foot drop brace patient states the reason she presented is that upon standing she gets extreme thigh discomfort and she fell to the ground could not get up upon PT OT evaluation patient qualifies for rehab Physical Exam Physical Exam: patient is much less painful than 1 day prior improvement of mood with alteration of some of her psychotropic medications significant limitation with ambulation problems evaluation for rehabilitation placement did have psychiatry eval and streamlined polypharmacy Results & Data Results & Data Vital Signs (Past 12 Hours) Vital Signs Temp Pulse Resp BP BP Pulse Ox O2 Del Method 12/10/22 15:09 97.9 F 66 16 124/72 97 Room Air 12/10/22 07:40 98.1 F 72 16 123/76 94 Room Air PG Care Time/CCT Total # of Minutes Spent Total Time Spent with Patient: Total time spent is greater than 50% in coordination of care (as documented) at patient's floor/unit and/or counseling patient: Coding Level of Care Code 33991 SUB INP/OBS CARE 2/35MIN Diagnoses Generalized weakness R53.1 Ambulatory dysfunction R26.2 LATESHA (acute kidney injury) N17.9 Hypothyroid E03.9 HTN (hypertension) I10 Alzheimers disease G30.9; F02.80 Anxiety F41.9
[2022-12-10] MEDS: DONEPEZIL HCL 10 MG TAB PO SCH (20:39)
[2022-12-10] MEDS: DOCUSATE SODIUM 100 MG CAP PO SCH (20:39)
[2022-12-10] MEDS: traZODone HCL 100 MG TAB PO SCH (20:40)
[2022-12-10] MEDS: HYDROXYCHLOROQUINE SULFATE 200 MG TAB PO SCH (20:40)
[2022-12-11] MEDS: HEPARIN SOD 5,000 UNIT/0.5 ML VIAL SQ SCH (05:36)
[2022-12-11] MEDS: LEVOTHYROXINE SODIUM 25 MCG TABLET PO SCH (05:36)
--- NOTE | 2022-12-11 07:59 | Discharge Summary ---
Discharge Summary Date of Service December 11, 2022 Admission HPI Per Admitting Provider 77yo Female with PMH anxiety depression dementia HTN hypothyroidism here for weakness fall. Patient states ever since her femur fracture 2 years ago she's been feeling weak, got weaker since she broke her neck last year. Today she was trying to get up to stand, found her legs could not support her, sank to the ground landed on her butt. Family came to help her stand up placed her in a lift, she was not able to transfer from the lift to her wheelchair. She denies any recent fever headache nausea SOB chest pain abd pain loss of appetite recent illness or recent change of medication. Occasionally describes pain in her calves that make it hard to walk. Per daughter, patient has been through physical therapy numerous times over the past 2 years, has recently been discharged from physical therapy due to backsliding of her physical ability. She gets around with either a walker or wheelchair. She lives with , helps her with medications. Patient has a psychiatrist Dr. Conway who is managing her psych medications. Admission Exam Per Admitting Provider Constitutional: well developed, well nourished, cooperative and comfortable Eyes: PERRL, conjunctivae normal, anicteric sclerae ENMT: external ear and nose normal, oropharynx normal Neck: trachea midline, no thyromegaly Respiratory: normal respiratory effort, lungs clear to auscultation Cardiovascular: Rate/Rhythm: regular rate and regular rhythm Gastrointestinal (Abdomen): Inspection/Auscultation: abdomen normal to inspection Percussion/Palpation: abdomen soft; abdomen nontender Musculoskeletal: 5/5 strength in upper extremities against resistance. 4/5 strength b/l LE knee flexion against gravity, 3/5 right foot dorsiflexion against resistance, 4/5 left foot dorsiflexion, 5/5 b/l foot plantarflexion Skin: no rashes, warm and dry Principal Dx & Hospital Course #1 = Principal Diagnosis (1) Generalized weakness: (2) Ambulatory dysfunction: (3) LATESHA (acute kidney injury): (4) Hypothyroid: (5) HTN (hypertension): (6) Alzheimers disease: (7) Anxiety: Plan 77yo Female with PMH anxiety depression dementia HTN hypothyroidism s/p mechanical fall and weakness Weakness, mechanical fall no injury -Recently discharged from PT for backsliding physical condition -PT/OT recommending rehab on discharge -Orthotics evaluated brace and feels that this can be adjusted as an outpatient -Rx written at discharge for outpt eval and treat for foot drop brace (current one not fitting properly) LATESHA, CKD 3 -Creat 0.98 on day of discharge -Stopping lisinopril for now as BP is stable off of it, defer resumption to PCP Dementia/Depression/Anxiety -Continue donepezil -Continue desvenlafaxine, gabapentin, lamotrigine, ziprasidone -Vyvanse discontinued, and Thorazine made PRN agitation rather than daily scheduled -Psychiatry recommendations appreciated this admission, given concern for polypharmacy possibly contributing to falls, has follow up with Psych on 12/24 Rheumatoid arthritis -Continue hydroxychloroquine HLD -Continue atorvastatin Hypothyroidism -Continue levothyroxine Insomnia -Continue trazodone at bedtime only Discharge Exam Constitutional WD/WN, vitals as above Psychiatric A+Ox3, euthymic affect Updated Medication List Medication Instructions Recorded Confirmed Type cholecalciferol (vitamin D3) 50 1,000 unit PO QAM 05/15/19 12/07/22 History mcg (2,000 unit) tablet (Vitamin D3) docusate sodium 100 mg capsule 100 mg PO QPM 05/15/19 12/07/22 History (Dulcolax Stool Softener (docusate)) folic acid 1 mg tablet 2 mg PO QPM 05/15/19 12/07/22 History hydroxychloroquine 200 mg tablet 400 mg PO QPM 05/15/19 12/07/22 History lamotrigine 25 mg tablet 75 mg PO QAM 05/15/19 12/07/22 History levothyroxine 25 mcg tablet 25 mcg PO DAILYBB 05/15/19 12/07/22 History (Synthroid) Prevegen 1 tab PO QAM 11/27/21 12/07/22 History atorvastatin 10 mg tablet 10 mg PO DAILY 11/27/21 12/07/22 History desvenlafaxine succinate 100 mg 100 mg PO QAM 11/27/21 12/07/22 History tablet,extended release 24 hr (Pristiq) desvenlafaxine succinate 25 mg 25 mg PO QAM 11/27/21 12/07/22 History tablet,extended release 24 hr donepezil 10 mg tablet 10 mg PO HS 11/27/21 12/07/22 History gabapentin 100 mg capsule 100 mg PO TID 12/07/22 12/07/22 History multivitamin-iron 9 mg-folic acid 2 tab PO QAM 12/07/22 12/07/22 History 200 mcg-calcium and minerals tablet (One-A-Day Women's Petites) trazodone 100 mg tablet 100 mg PO HS 12/07/22 12/07/22 History ziprasidone HCl 60 mg capsule 60 mg PO BID 12/07/22 12/07/22 History chlorpromazine 50 mg tablet 50 mg PO HS PRN 12/11/22 12/07/22 Rx agitation/aggression #30 tabs Hospital Stay Data Consultations 12/07/22 21:26 ED Decision to Admit Stat 12/08/22 07:44 Consult Psychiatry Routine Discharge Instructions Given to Patient (Per Discharging Provider) 77yo Female with PMH anxiety depression dementia HTN hypothyroidism s/p mechanical fall and weakness Weakness, mechanical fall no injury -Recently discharged from PT for backsliding physical condition -PT/OT recommending rehab -Orthotics evaluated brace and feels that he can be adjusted as an outpatient -Rx written at discharge for outpt eval and treat for foot drop brace (current one not fitting properly) ALTESHA, CKD 3 -Creat 0.98 on day of discharge -Stopping lisinopril as BP is stable off of it, defer resumption to PCP Dementia/Depression/Anxiety -Continue donepezil -Continue desvenlafaxine, gabapentin, lamotrigine, ziprasidone -Vyvanse discontinued, and Thorazine made PRN agitation -Psychiatry recommendations appreciated this admission, given concern for polypharmacy possibly contributing to falls, has follow up with Psych on 12/24 Rheumatoid arthritis -Continue hydroxychloroquine HLD -Continue atorvastatin Hypothyroidism -Continue levothyroxine Insomnia -Continue trazodone at bedtime only Total Time Total Time Spent Total Time Spent (In Minutes): 35 min Coding Level of Care Code 23856 INP/OBS DISCH >30 MIN Diagnoses Generalized weakness R53.1 Ambulatory dysfunction R26.2 LATESHA (acute kidney injury) N17.9 Hypothyroid E03.9 HTN (hypertension) I10 Alzheimers disease G30.9; F02.80 Anxiety F41.9
[2022-12-11 08:39] LABS: BUN Creatinine Ratio 9.1 (10-20); Calcium 9.3 mg/dl (8.6-10.3); Creatinine Clr Calc Pharmacy 56.5 ml/min; Est GFR (Non-African American) 63.8 ml/min; Magnesium 1.7 mg/dl (1.7-2.4); Potassium 4.2 mmol/L (3.5-5.1)
[2022-12-11] MEDS: DESVENLAFAXINE SUCCINATE 25 MG PO SCH (09:08)
[2022-12-11] MEDS: DESVENLAFAXINE SUCCINATE 100 MG PO SCH (09:08)
[2022-12-11] MEDS: lamoTRIgine 25 MG TAB PO SCH (09:09)
[2022-12-11] MEDS: DICLOFENAC SOD 1% GEL 100 GM TUBE EXT SCH (09:09)
[2022-12-11] MEDS: GABAPENTIN 100 MG CAP PO SCH (09:09)
[2022-12-11] MEDS: ATORVASTATIN 10 MG TAB PO SCH (09:09)
[2022-12-11] MEDS: ACETAMINOPHEN 325 MG TAB PO PRN (11:12)
== END 2022-12-11 13:04 | DRG 683 ==
LOC: 3N 17:46 → ED 17:46 → SUATTDRO 22:00 → 3N 23:13 → SUATTDRO 12-08 15:55

== ENCOUNTER 2023-02-06 14:30 | Observation (INO) ==
--- NOTE | 2023-02-06 14:44 | Emergency Department Note ---
History of Present Illness General Chief complaint: Fall Stated complaint: FALL Time Seen by Provider: 02/06/23 14:36 History of Present Illness 77-year-old female via EMS reportedly with multiple falls recently and generalized weakness. Now with shakes in the left lower extremity. Patient had fallen earlier today. Patient admits to falling however does not state that she hit her head. EMS was on the scene and convince the patient to come to the hospital. There was an abrasion noted to the left lower extremity. Patient denies any chest pain shortness of breath abdominal pain nausea vomiting. Patient states that she typically walks without a cane or a walker. Patient states that she has been falling a lot more. According to EMS she will begin to answer question and then stop answering. Home Medications Medication Instructions Recorded Confirmed Type cholecalciferol (vitamin D3) 50 2,000 unit PO QAM 05/15/19 02/06/23 History mcg (2,000 unit) tablet (Vitamin D3) docusate sodium 100 mg capsule 100 mg PO QPM 05/15/19 02/06/23 History (Dulcolax Stool Softener (docusate)) folic acid 1 mg tablet 2 mg PO QPM 05/15/19 02/06/23 History hydroxychloroquine 200 mg tablet 400 mg PO QPM 05/15/19 02/06/23 History lamotrigine 25 mg tablet 75 mg PO QAM 05/15/19 02/06/23 History levothyroxine 25 mcg tablet 25 mcg PO DAILYBB 05/15/19 02/06/23 History (Synthroid) atorvastatin 10 mg tablet 10 mg PO DAILY 11/27/21 02/06/23 History desvenlafaxine succinate 100 mg 100 mg PO QAM 11/27/21 02/06/23 History tablet,extended release 24 hr (Pristiq) desvenlafaxine succinate 25 mg 25 mg PO QAM 11/27/21 02/06/23 History tablet,extended release 24 hr donepezil 10 mg tablet 10 mg PO HS 11/27/21 02/06/23 History gabapentin 100 mg capsule 100 mg PO TID 12/07/22 02/06/23 History multivitamin-iron 9 mg-folic acid 2 tab PO QAM 12/07/22 02/06/23 History 200 mcg-calcium and minerals tablet (One-A-Day Women's Petites) trazodone 100 mg tablet 100 mg PO HS 12/07/22 02/06/23 History benztropine 1 mg tablet 1 mg PO QPM 02/06/23 02/06/23 History cyanocobalamin (vitamin B-12) 1,000 mcg PO DAILY 02/06/23 02/06/23 History 1,000 mcg tablet (Vitamin B-12) lisinopril 5 mg tablet 5 mg PO DAILY 02/06/23 02/06/23 History methylphenidate HCl 10 mg tablet 10 mg PO BID 02/06/23 02/06/23 History (Ritalin) pilocarpine HCl 5 mg tablet 5 mg PO TID 02/06/23 02/06/23 History quetiapine 50 mg tablet 75 mg PO TID 02/06/23 02/06/23 History Allergies Allergy/AdvReac Type Severity Reaction Status Date / Time Iodinated Contrast Media Allergy Severe HIVES Verified 02/06/23 17:33 baclofen AdvReac Intermediate Hallucinati Verified 02/06/23 17:33 ng cyclobenzaprine AdvReac Intermediate Hallucinati Verified 02/06/23 17:33 [From Flexeril] ng morphine AdvReac Intermediate Hallucinati Verified 02/06/23 17:33 ng Penicillins AdvReac Intermediate RASH Verified 02/06/23 17:33 tizanidine [From Zanaflex] AdvReac Intermediate Hallucinati Verified 02/06/23 17:33 ng Past Med/Surg History Medical History Alzheimers disease Anemia Anxiety Arthritis Depression Hip bursitis, left Hip bursitis, left HTN (hypertension) Hypothyroid Left leg pain Overactive bladder Right peroneal tendonosis Rotator cuff syndrome of left shoulder Trochanteric bursitis, right hip Weakness Surgical History H/O knee surgery History of knee replacement Family History Mother CVA (cerebrovascular accident due to intracerebral hemorrhage) Father Stroke Denies family history of Myocardial infarction Social History Smoking Status: Former smoker Cigarettes Per Day: 1 pack/day; Second Hand Exposure: No; Do You Dip or Chew Tobacco: No; Hx Alcohol Use: No Hx Substance Use: Yes Last Used Substance: Days (ago) Last Used Substance Oth er:: uses medical marijuana to sleep, took night of 12/06/2022 Preferred Language: Gambian Communication Ability: Effective Communication Ability Comment: reports difficulting writing Visual Impairment: Limited Hearing Ability: Hard of Hearing Adjunct Art History Instructor Required: No Beliefs That Will Affect Care: None marital status: Current Living Situation: Spouse Current Living Situation Comment: Lives with at home Feels Safe at Home: Yes Diet: regular Assistive Devices: Glasses, Walker and Wheelchair Review of Systems Unobtainable due to cognitive status Physical Exam Vital Signs Vital Signs - 24 hr 02/06/23 14:45 02/06/23 14:40 02/06/23 15:47 Temperature 37.1 C Temperature Source Oral Pulse Rate 79 79 Pulse Rate [Left Finger] 79 Pulse Rate from SpO2 Sensor Pulse Rhythm Regular Pulse Rhythm [Left Finger] Regular Pulse Strength [Left Finger] Normal Respiratory Rate 19 19 17 Respiratory Effort / Characteristics Non-Labored Non-Labored Spontaneous Respiratory Depth Normal Normal Respiratory Pattern Regular Regular Blood Pressure 116/77 Blood Pressure [Right Arm] 109/65 Blood Pressure Mean 90 Blood Pressure Mean [Right Arm] 79 Blood Pressure Position [Right Arm] Lying Pulse Oximetry 94 94 94 Oxygen Delivery Method Room Air Room Air Room Air Sepsis Recent Fever Within 48 Hours No Sepsis New/Unexplained Change in Mental Status N/A Sepsis Action Taken by Nursing No Action Required 02/06/23 15:34 02/06/23 15:40 02/06/23 16:11 Temperature Temperature Source Pulse Rate 78 79 76 Pulse Rate [Left Finger] Pulse Rate from SpO2 Sensor 78 79 Pulse Rhythm Pulse Rhythm [Left Finger] Pulse Strength [Left Finger] Respiratory Rate 18 17 Respiratory Effort / Characteristics Respiratory Depth Respiratory Pattern Blood Pressure Blood Pressure [Right Arm] Blood Pressure Mean Blood Pressure Mean [Right Arm] Blood Pressure Position [Right Arm] Pulse Oximetry 94 94 Oxygen Delivery Method Sepsis Recent Fever Within 48 Hours Sepsis New/Unexplained Change in Mental Status Sepsis Action Taken by Nursing GENERAL: Patient is awake alert in no acute distress patient is resting comfortably and showing no signs of anxiety EYES: The conjunctivae are clear. The pupils are round and reactive. Head exam reveals normocephalic atraumatic EARS, NOSE, MOUTH AND THROAT: The nose is without any evidence of any deformity. Mucous membranes are moist. Tongue is midline. NECK: The neck is nontender and supple. RESPIRATORY: Normal respiratory effort is noted there is no evidence of wheezing rhonchi or rales CARDIOVASCULAR: Regular rate and rhythm noted there no murmurs rubs or gallops normal S1 normal S2. GASTROINTESTINAL: The abdomen is soft. Abdomen is nontender. BACK: No midline tenderness or or step-off noted range of motion in flexion extension as well as rotation no signs of muscle spasm noted MUSCULOSKELETAL/EXTREMITIES: There is no evidence of gross deformity full range of motion is noted in the hips and shoulders. Patient has an abrasion to the left anterior gordon SKIN: There is no obvious evidence of any rash. There are no petechiae, pallor or cyanosis noted. NEUROLOGIC: Patient is awake alert and oriented x2; patient occasionally has myoclonic jerks in the left lower extremity Course Reevaluation(s) Reevaluation #1: Patient was started on IV fluids. Patient was given IV Rocephin. I spoke to the patient and the patient's son who is at bedside. Reportedly the patient can no longer be taking care of by the patient's according to the son. I discussed admission for treatment of urinary tract infection and possible placement Time: 17:53 Consultations Consultation #1: Case was discussed with the [facility] hospitalist for admission Time: 17:53 Medical Decision Making Medical Records Attestation: I reviewed the patient's medical records. Home Medications Current Medication List: was personally reviewed by me Laboratory Data Attestation: I reviewed the patient's lab results. Labs interpreted by me are unremarkable 02/06/23 15:28 02/06/23 15:28 Lab Results 02/06/23 02/06/23 02/06/23 Range/Units 15:28 15:28 15:28 WBC 8.02 (4.8-10.8) K/ul RBC 4.31 (4.20-5.40) M/uL Hgb 13.6 (12.0-16.0) g/dl Hct 41.3 (37.0-47.0) % MCV 95.8 (80.0-100.0) fL MCH 31.6 (25.0-34.0) pg MCHC 32.9 (32.0-36.0) g/dL RDW Std Deviation 46.3 (36.4-46.3) fL RDW Coeff of Dru 13.0 (11.5-14.5) % Plt Count 241 (130-400) K/uL MPV 9.7 (9.4-12.4) fL Immature Gran % (Auto) 0.2 % Neut % (Auto) 57.9 % Lymph % (Auto) 28.7 % [place] % (Auto) 9.9 % Eos % (Auto) 2.7 % Baso % (Auto) 0.6 % Neut # (Auto) 4.64 (1.40-6.50) K/uL Lymph # (Auto) 2.30 (1.20-3.40) K/uL [place] # (Auto) 0.79 H (0.11-0.59) K/uL Eos # (Auto) 0.22 (0.00-0.50) K/uL Baso # (Auto) 0.05 (0.00-0.20) K/uL Immature Gran # (Auto) 0.02 (0.01-0.20) K/uL Sodium 139 (136-145) mmol/L Potassium 4.5 (3.5-5.1) mmol/L Chloride 104 (98-107) mmol/L Carbon Dioxide 29 (21-32) mmol/L Anion Gap 6 (3-11) BUN 28 H (6-23) mg/dl Creatinine 1.07 (0.6-1.2) mg/dl Est Cr Clr Drug Dosing 44.7 ml/min Est GFR ( Amer) 58.4 ml/min Est GFR (Non-Af Amer) 50.4 ml/min BUN/Creatinine Ratio 26.2 H (10-20) Glucose 85 (70-99(Fasting)) mg/dl Lactate 0.7 (0.4-2.0) mmol/L Calcium 10.2 (8.6-10.3) mg/dl Magnesium 2.1 (1.7-2.4) mg/dl Total Bilirubin 0.3 (0.2-1.0) mg/dl Direct Bilirubin 0.1 (0-0.2) mg/dl AST 24 (13-39) U/L ALT 25 (7-52) U/L Alkaline Phosphatase 132 H (34-104) U/L Total Protein 7.4 (6.0-8.3) gm/dl Albumin 4.3 (3.4-5.0) gm/dl Procalcitonin (0-0.5) ng/ml Urine Color Urine Appearance (Clear) Urine pH (4.5-7.5) Ur Specific [place] (1.000-1.030) Urine Protein (Negative) Urine Glucose (UA) (Negative) Urine Ketones (Negative) Urine Blood (Negative) Urine Nitrite (Negative) Urine Bilirubin (Negative) Urine Urobilinogen (Negative) Ur Leukocyte Esterase (Negative) Urine WBC (Auto) (0-5) /hpf Urine RBC (Auto) (0-4) /hpf U Hyaline Cast (Auto) (0-5) /lpf U Epithel Cells (Auto) (0-5) /lpf Urine Bacteria (Auto) (Negative) SARS-CoV-2, RNA, NAAT (NEGATIVE) 02/06/23 02/06/23 02/06/23 Range/Units 15:28 16:40 Unknown WBC (4.8-10.8) K/ul RBC (4.20-5.40) M/uL Hgb (12.0-16.0) g/dl Hct (37.0-47.0) % MCV (80.0-100.0) fL MCH (25.0-34.0) pg MCHC (32.0-36.0) g/dL RDW Std Deviation (36.4-46.3) fL RDW Coeff of Dru (11.5-14.5) % Plt Count (130-400) K/uL MPV (9.4-12.4) fL Immature Gran % (Auto) % Neut % (Auto) % Lymph % (Auto) % [place] % (Auto) % Eos % (Auto) % Baso % (Auto) % Neut # (Auto) (1.40-6.50) K/uL Lymph # (Auto) (1.20-3.40) K/uL [place] # (Auto) (0.11-0.59) K/uL Eos # (Auto) (0.00-0.50) K/uL Baso # (Auto) (0.00-0.20) K/uL Immature Gran # (Auto) (0.01-0.20) K/uL Sodium (136-145) mmol/L Potassium (3.5-5.1) mmol/L Chloride (98-107) mmol/L Carbon Dioxide (21-32) mmol/L Anion Gap (3-11) BUN (6-23) mg/dl Creatinine (0.6-1.2) mg/dl Est Cr Clr Drug Dosing ml/min Est GFR ( Amer) ml/min Est GFR (Non-Af Amer) ml/min BUN/Creatinine Ratio (10-20) Glucose (70-99(Fasting)) mg/dl Lactate (0.4-2.0) mmol/L Calcium (8.6-10.3) mg/dl Magnesium (1.7-2.4) mg/dl Total Bilirubin (0.2-1.0) mg/dl Direct Bilirubin (0-0.2) mg/dl AST (13-39) U/L ALT (7-52) U/L Alkaline Phosphatase (34-104) U/L Total Protein (6.0-8.3) gm/dl Albumin (3.4-5.0) gm/dl Procalcitonin < 0.05 (0-0.5) ng/ml Urine Color Yellow Urine Appearance Clear (Clear) Urine pH 5.5 (4.5-7.5) Ur Specific [place] 1.012 (1.000-1.030) Urine Protein Negative (Negative) Urine Glucose (UA) Negative (Negative) Urine Ketones Negative (Negative) Urine Blood Trace H (Negative) Urine Nitrite Positive A (Negative) Urine Bilirubin Negative (Negative) Urine Urobilinogen Negative (Negative) Ur Leukocyte Esterase 2+ H (Negative) Urine WBC (Auto) >30 H (0-5) /hpf Urine RBC (Auto) 0-4 (0-4) /hpf U Hyaline Cast (Auto) 0 (0-5) /lpf U Epithel Cells (Auto) 0-5 (0-5) /lpf Urine Bacteria (Auto) 1+ H (Negative) SARS-CoV-2, RNA, NAAT NEGATIVE (NEGATIVE) Imaging Data Attestation: I personally reviewed and interpreted this imaging study as follows: My Impression: Chest x-ray interpreted by me negative for infiltrate Radiologist's Impression: Chest X-Ray 02/06/23 14:40 XR chest 1V portable HISTORY: Sepsis COMPARISON: Chest 12/07/2022. FINDINGS: No pneumothorax. No pleural effusions. No focal lung consolidations to suggest a pneumonia. No evidence for pulmonary edema. The cardiac silhouette remains normal in size. Extensive spinal fusion hardware again noted. IMPRESSION: No significant change compared to the prior study. No acute process. ACT 112: Negative or not required by law. Electronically signed by: Eddi Blackman M.D. 02/06/2023 4:[address] 02/06/23 14:40 CT head/brain wo con CLINICAL HISTORY: 77 years-old Female with falls, weakness. Acute head injury status post fall. Acute weakness. TECHNIQUE: Multiple axial CT images of the head were obtained without contrast. A dose lowering technique was utilized adhering to the principles of ALARA. CT DOSE: 1095.49 mGy.cm COMPARISON: None. FINDINGS: No acute intracranial hemorrhage, midline shift, intracranial mass, acute territorial ischemia or abnormal extra-axial collection. Unchanged calcifications within the right prepontine/ambient cistern. Involutional changes with chronic microvascular ischemic disease. Unchanged ventriculomegaly. Partially imaged lumbar spinal fusion hardware. Chronic right occipital calvarial defect. The paranasal sinuses, mastoid air cells, and middle ear cavities are clear. IMPRESSION: No acute intracranial abnormality. ACT 112: Negative or not required by law. The above report was generated using voice recognition software. It may contain grammatical, syntax or spelling errors. Electronically signed by: Caleb Pretty M.D. 02/06/2023 3:16 PM ECG Data Attestation: I personally reviewed and interpreted this ECG as follows: Additional Comments: EKG interpreted by me normal sinus rhythm rate of 80, no obvious ST segment elevation or depression, normal intervals normal axis Telemetry was ordered by me, interpreted as normal sinus rhythm rate of 80 MDM Narrative Medical decision making differential diagnosis includes sepsis, urinary tract infection, electrolyte abnormality, deconditioning, intracranial hemorrhage, failure to thrive Plan is to check sepsis labs, CT brain External medical records were reviewed by me EMS gave me bedside medical report regarding this patient's condition and multiple falls Patient was started on IV fluids, patient was given IV Rocephin, the case was discussed with the [facility] hospitalist for admission Impression & Plan Acute UTI (urinary tract infection), Weakness Discharge Plan Visit Data Chief Complaint: Fall Stated Complaint: FALL ED Provider: Pb Dale Discharge Problem: Acute UTI (urinary tract infection), Weakness Patient Disposition: Admitted As Inpatient Forms Stand Alone Forms: My [facility] Prescriptions Prescriptions: No Action cholecalciferol (vitamin D3) [Vitamin D3] 2,000 unit Tablet 2,000 unit PO QAM lamotrigine 25 mg Tablet 75 mg PO QAM levothyroxine [Synthroid] 25 mcg Tablet 25 mcg PO DAILYBB docusate sodium [Dulcolax Stool Softener (dss)] 100 mg Capsule 100 mg PO QPM hydroxychloroquine 200 mg Tablet 400 mg PO QPM Rx Instructions: 2 tablet dose folic acid 1 mg Tablet 2 mg PO QPM atorvastatin 10 mg tablet 10 mg PO DAILY desvenlafaxine succinate [Pristiq] 100 mg tablet extended release 24 hr 100 mg PO QAM Rx Instructions: TOTAL DOSE 125 MG--TAKES WITH 25 MG TAB. desvenlafaxine succinate 25 mg tablet extended release 24 hr 25 mg PO QAM Rx Instructions: TOTAL DOSE 125 MG--TAKES WITH 100 MG TAB. donepezil 10 mg tablet 10 mg PO HS trazodone 100 mg tablet 100 mg PO HS gabapentin 100 mg Capsule 100 mg PO TID One-A-Day Women's Petites 9 mg iron-200 mcg Tablet 2 tab PO QAM pilocarpine HCl 5 mg tablet 5 mg PO TID methylphenidate HCl [Ritalin] 10 mg tablet 10 mg PO BID cyanocobalamin (vitamin B-12) [Vitamin B-12] 1,000 mcg Tablet 1,000 mcg PO DAILY benztropine 1 mg tablet 1 mg PO QPM lisinopril 5 mg tablet 5 mg PO DAILY quetiapine 50 mg tablet 75 mg PO TID Referrals Referrals: Mary Mccarthy MD [Primary Care Provider] -
--- NOTE | 2023-02-06 15:17 | CT Scan Report ---
CT head/brain wo con CLINICAL HISTORY: 77 years-old Female with falls, weakness. Acute head injury status post fall. Acut e weakness. TECHNIQUE: Multiple axial CT images of the head were obtained without contrast. A dose lowering tech nique was utilized adhering to the principles of ALARA. CT DOSE: 1095.49 mGy.cm COMPARISON: None. FINDINGS: No acute intracranial hemorrhage, midline shift, intracranial mass, acute territorial ischemia or abn ormal extra-axial collection. Unchanged calcifications within the right prepontine/ambient cistern. I nvolutional changes with chronic microvascular ischemic disease. Unchanged ventriculomegaly. Partially imaged lumbar spinal fusion hardware. Chronic right occipital calvarial defect. The parana rigo sinuses, mastoid air cells, and middle ear cavities are clear. IMPRESSION: No acute intracranial abnormality. ACT 112: Negative or not required by law. The above report was generated using voice recognition software. It may contain grammatical, syntax o r spelling errors. Electronically signed by: Caleb Pretty M.D. 02/06/2023 3:16 PM
[2023-02-06 15:57] LABS: Basophils # (auto) 0.05 K/uL (0.00-0.20); Basophils % (auto) 0.6 %; Eosinophils # (auto) 0.22 K/uL (0.00-0.50); Eosinophils % (auto) 2.7 %; Hematocrit (blood only) 41.3 % (37.0-47.0); Hemoglobin 13.6 g/dl (12.0-16.0); Immature Granulocytes # (auto) 0.02 K/uL (0.01-0.20); Immature Granulocytes % (auto) 0.2 %; Lymphocytes % (auto) 28.7 %; Mean Corpuscular Hemoglobin 31.6 pg (25.0-34.0); Mean Corpuscular Hgb Conc 32.9 g/dL (32.0-36.0); Mean Corpuscular Volume 95.8 fL (80.0-100.0); Mean Platelet Volume 9.7 fL (9.4-12.4); Monocytes # (auto) 0.79 K/uL (0.11-0.59); Monocytes % (auto) 9.9 %; Neutrophils # (auto) 4.64 K/uL (1.40-6.50); Neutrophils % (auto) 57.9 %; Platelet Count 241 K/uL (130-400); RDW Standard Deviation 46.3 fL (36.4-46.3); Red Blood Count 4.31 M/uL (4.20-5.40); White Blood Count 8.02 K/ul (4.8-10.8)
[2023-02-06 16:15] LABS: Albumin Level 4.3 gm/dl (3.4-5.0); BUN Creatinine Ratio 26.2 (10-20); Bilirubin Direct 0.1 mg/dl (0-0.2); Bilirubin,Total 0.3 mg/dl (0.2-1.0); Calcium 10.2 mg/dl (8.6-10.3); Creatinine Clr Calc Pharmacy 44.7 ml/min; Est GFR (African American) 58.4 ml/min; Est GFR (Non-African American) 50.4 ml/min; Magnesium 2.1 mg/dl (1.7-2.4); Potassium 4.5 mmol/L (3.5-5.1); Total Protein 7.4 gm/dl (6.0-8.3)
--- NOTE | 2023-02-06 17:01 | XRay Report ---
XR chest 1V portable HISTORY: Sepsis COMPARISON: Chest 12/07/2022. FINDINGS: No pneumothorax. No pleural effusions. No focal lung consolidations to suggest a pneumonia. No evidence for pulmonary edema. The cardiac silhouette remains normal in size. Extensive spinal fus ion hardware again noted. IMPRESSION: No significant change compared to the prior study. No acute process. ACT 112: Negative or not required by law. Electronically signed by: Eddi Blackman M.D. 02/06/2023 4:59 PM
[2023-02-06 17:06] LABS: Appearance Urine Clear (Clear); Bacteria Urine Automated 1+ (Negative); Bilirubin Urine Negative (Negative); Blood Urine Trace (Negative); Cast Urine Automated 0 /lpf (0-5); Color Urine Yellow; Epithelial Cell Urine Auto 0-5 /lpf (0-5); Glucose Urine UA Negative (Negative); Ketones Urine Negative (Negative); Leukocyte Esterase Urine 2+ (Negative); Nitrite Urine Positive (Negative); Protein Urine Negative (Negative); RBC Urine Automated 0-4 /hpf (0-4); Specific Gravity Urine 1.012 (1.000-1.030); Urobilinogen Urine Negative (Negative); WBC Urine Automated >30 /hpf (0-5); pH Urine 5.5 (4.5-7.5)
[2023-02-06] MEDS ORDERED: cefTRIAXone SODIUM 2,000 MG/70 ML BAG IV STA (17:15)
--- NOTE | 2023-02-06 17:40 | History & Physical Report ---
Date of Service February 06, 2023 Assessment & Plan (1) Recurrent falls: Plan: -Admit to med/surge -Currently stable -Patient had another fall while standing today, she lost her balance and fell backwards -CT of the head and chest xray were negative for acute findings -No other trauma noted on exam -Will obtain no con CT of the cervical spine to ensure she has no new neck trauma from her recent fall -Patient will need placement, PT/OT/Case management consults placed -Polypharmacy may be contributing to her falls as she is on multiple sedative medications including TID Seroquel, HS trazodone, TID Gabapentin -Fall precautions ordered -TONG's for DVT PPX -HH diet, minced and moist diet with aspiration precautions -AM CBC, CMP (2) Acute UTI (urinary tract infection): Plan: -UA today appears to be infected -S/P one dose of ceftriaxone in the ED -No previous hx of resistant UTI, will continue with Ceftriaxone for now -Follow urine and blood cultures (3) Neck pain: Plan: -Will FU on CT of the neck wo con to rule out acute trauma (4) Dementia: Plan: -Currently only oriented to person -Son states cognition waxes and wanes -Continue Aricept, Lamictal -Will reduce her TID Seroquel to HS for now to try and reduce her daytime fatigue -Will continue Cogentin for EPS symptoms (5) Depression: Plan: -Continue Pristiq (6) Hypothyroid: Plan: -Continue levothyroxine (7) HTN (hypertension): Plan: -Stable -Continue lisinopril (8) Elevated alkaline phosphatase level: Plan: -Elevated at 132 -Has been a chronic problem, has been higher in the past -No abdominal pain -Monitor am CMP (9) Rheumatoid arthritis: Plan: -Continue Plaquenil Plan The patient was discussed with Dr. Burt at the time of the admission History of Present Illness Chief Complaint: Weakness, recurrent falls Primary Care Provider: Mary Mccarthy MD Divya is a 77yo Female with PMH anxiety, depression, dementia, HTN, hypothyroidism, and RA who presented to the [facility] ED via EMS on 02/06 for weakness and recurrent falls. In the ED vitals were stable. Labs were significant for CBC, CMP, and initial high sen trop were significant for an alk phos of 132 (has been higher in the past). Ua is positive for UTI. CT of the head wo con and chest xray were read as negative for acute findings. Prior to admission the patient was given a dose of Ceftriaxone. We were asked to admit the patient for UTI and likely placement. At the time of the exam the patient was lying in bed in no acute distress with her Son sitting bedside, history was obtained from both. The patient and her son state that the patient has been getting progressively weaker over the past year. She has had many falls and was last admitted after a fall in November. Today the patient was in the kitchen, standing at their counter when she suddenly lost her balance and fell backwards. She denies feeling lightheaded or dizzy, or having chest pain, hear palpitations, or SOB prior to her fall. She did hit her head when she fell and is unsure if she lost consciousness. She has tried to use a walker in the past for ambulation but states that she still has difficulty safely walking at home. Her son states, "unfortunately my dad is not strong enough to care for her anymore". They are interested in placement at [facility] with all of her recent falls. She denies recent fever, chills, chest pain, SOB, cough, abd pain, nausea, vomiting, diarrhea, dysuria, hematuria, melena, and LE swelling. She does note neck pain when asked and during my exam. Her son explains that she had a previous neck injury and chronic neck pain from a previous fall. We discussed code status, at this time she does have a living will and wishes to be a Full code. Please refer to Dr. Burt's attestation for any changes to the treatment plan Allergies Allergy/AdvReac Type Severity Reaction Status Date / Time Iodinated Contrast Media Allergy Severe HIVES Verified 02/06/23 17:33 baclofen AdvReac Intermediate Hallucinati Verified 02/06/23 17:33 ng cyclobenzaprine AdvReac Intermediate Hallucinati Verified 02/06/23 17:33 [From Flexeril] ng morphine AdvReac Intermediate Hallucinati Verified 02/06/23 17:33 ng Penicillins AdvReac Intermediate RASH Verified 02/06/23 17:33 tizanidine [From Zanaflex] AdvReac Intermediate Hallucinati Verified 02/06/23 17:33 ng Home Medications Medication Instructions Recorded Confirmed Type cholecalciferol (vitamin D3) 50 2,000 unit PO QAM 05/15/19 02/06/23 History mcg (2,000 unit) tablet (Vitamin D3) docusate sodium 100 mg capsule 100 mg PO QPM 05/15/19 02/06/23 History (Dulcolax Stool Softener (docusate)) folic acid 1 mg tablet 2 mg PO QPM 05/15/19 02/06/23 History hydroxychloroquine 200 mg tablet 400 mg PO QPM 05/15/19 02/06/23 History lamotrigine 25 mg tablet 75 mg PO QAM 05/15/19 02/06/23 History levothyroxine 25 mcg tablet 25 mcg PO DAILYBB 05/15/19 02/06/23 History (Synthroid) atorvastatin 10 mg tablet 10 mg PO DAILY 11/27/21 02/06/23 History desvenlafaxine succinate 100 mg 100 mg PO QAM 11/27/21 02/06/23 History tablet,extended release 24 hr (Pristiq) desvenlafaxine succinate 25 mg 25 mg PO QAM 11/27/21 02/06/23 History tablet,extended release 24 hr donepezil 10 mg tablet 10 mg PO HS 11/27/21 02/06/23 History gabapentin 100 mg capsule 100 mg PO TID 12/07/22 02/06/23 History multivitamin-iron 9 mg-folic acid 2 tab PO QAM 12/07/22 02/06/23 History 200 mcg-calcium and minerals tablet (One-A-Day Women's Petites) trazodone 100 mg tablet 100 mg PO HS 12/07/22 02/06/23 History benztropine 1 mg tablet 1 mg PO QPM 02/06/23 02/06/23 History cyanocobalamin (vitamin B-12) 1,000 mcg PO DAILY 02/06/23 02/06/23 History 1,000 mcg tablet (Vitamin B-12) lisinopril 5 mg tablet 5 mg PO DAILY 02/06/23 02/06/23 History methylphenidate HCl 10 mg tablet 10 mg PO BID 02/06/23 02/06/23 History (Ritalin) pilocarpine HCl 5 mg tablet 5 mg PO TID 02/06/23 02/06/23 History quetiapine 50 mg tablet 75 mg PO TID 02/06/23 02/06/23 History Past Med/Surg History Medical History Alzheimers disease Anemia Anxiety Arthritis Depression Hip bursitis, left Hip bursitis, left HTN (hypertension) Hypothyroid Left leg pain Overactive bladder Right peroneal tendonosis Rotator cuff syndrome of left shoulder Trochanteric bursitis, right hip Weakness Surgical History H/O knee surgery History of knee replacement Family History Mother CVA (cerebrovascular accident due to intracerebral hemorrhage) Father Stroke Denies family history of Myocardial infarction Social History Smoking Status: Never smoker Cigarettes Per Day: 1 pack/day; Second Hand Exposure: No; Do You Dip or Chew Tobacco: No; Hx Alcohol Use: No Hx Substance Use: No Preferred Language: Icelandic Communication Ability: Effective Communication Ability Comment: reports difficulting writing Visual Impairment: Limited Hearing Ability: Hard of Hearing Coal Loader Required: No Beliefs That Will Affect Care: None marital status: Current Living Situation: Spouse Current Living Situation Comment: Lives with at home Other Information That Helps Us Care for You: No Feels Safe at Home: Yes Safety Concerns: Feels Safe At This Time Diet: regular Assistive Devices: Stair Lift, Walker and Wheelchair Physical Exam Physical Exam: Physical Exam: General: In no acute distress, stated age, chronically ill appearing HEENT: Normocephalic, patient with small bruise on the posterior skull in various stages of healing, no scleral icterus, pupils around round, symmetrical, and reactive to light, moist mucus membranes, trachea midline, no thyromegaly Chest/Pulm: No respiratory distress, symmetrical chest expansion, clear breath sounds throughout Cardiac: RRR, no murmurs noted Abdomen: Negative for ascites and bruising, normoactive bowel sounds, soft, non-tender to palpation throughout Musculoskeletal: No crepitus on palpation of the face, head, or cervical spine. Patient does have pain over the cervical spine with flexion and palpation, otherwise no other trauma noted on exam Extremities: Radial, dorsalis pedis, and posterior tibial pulses are intact and symmetrical, no edema noted in the BL LE's Skin: Warm, dry, no rashes , lesions, or scars noted Neuro: Alert and oriented to person only, CN II-XII tested and intact, patient with EPS such as lip smacking and pill rolling at rest, no tremor noted Psych: No acute distress, calm and cooperative during the exam Results & Data Results & Data Vital Signs (Past 12 Hours) Vital Signs Temp Pulse Pulse Resp BP BP Pulse Ox 02/06/23 16:11 76 02/06/23 15:40 79 17 94 02/06/23 15:34 78 18 94 02/06/23 15:47 79 17 109/65 94 02/06/23 14:40 79 19 94 02/06/23 14:45 37.1 C 79 19 116/77 94 O2 Del Method 02/06/23 16:11 02/06/23 15:40 02/06/23 15:34 02/06/23 15:47 Room Air 02/06/23 14:40 Room Air 02/06/23 14:45 Room Air Laboratory Results Abnormal lab results 02/06/23 02/06/23 02/06/23 Range/Units 15:28 15:28 16:40 [place] # (Auto) 0.79 H (0.11-0.59) K/uL BUN 28 H (6-23) mg/dl BUN/Creatinine Ratio 26.2 H (10-20) Alkaline Phosphatase 132 H (34-104) U/L Urine Blood Trace H (Negative) Urine Nitrite Positive A (Negative) Ur Leukocyte Esterase 2+ H (Negative) Urine WBC (Auto) >30 H (0-5) /hpf Urine Bacteria (Auto) 1+ H (Negative) Diagnostic Findings Chest X-Ray 02/06/23 14:40 XR chest 1V portable HISTORY: Sepsis COMPARISON: Chest 12/07/2022. FINDINGS: No pneumothorax. No pleural effusions. No focal lung consolidations to suggest a pneumonia. No evidence for pulmonary edema. The cardiac silhouette remains normal in size. Extensive spinal fusion hardware again noted. IMPRESSION: No significant change compared to the prior study. No acute process. ACT 112: Negative or not required by law. Electronically signed by: Eddi Blackman M.D. 02/06/2023 4:[address] 02/06/23 14:40 CT head/brain wo con CLINICAL HISTORY: 77 years-old Female with falls, weakness. Acute head injury status post fall. Acute weakness. TECHNIQUE: Multiple axial CT images of the head were obtained without contrast. A dose lowering technique was utilized adhering to the principles of ALARA. CT DOSE: 1095.49 mGy.cm COMPARISON: None. FINDINGS: No acute intracranial hemorrhage, midline shift, intracranial mass, acute territorial ischemia or abnormal extra-axial collection. Unchanged calcifications within the right prepontine/ambient cistern. Involutional changes with chronic microvascular ischemic disease. Unchanged ventriculomegaly. Partially imaged lumbar spinal fusion hardware. Chronic right occipital calvarial defect. The paranasal sinuses, mastoid air cells, and middle ear cavities are clear. IMPRESSION: No acute intracranial abnormality. ACT 112: Negative or not required by law. The above report was generated using voice recognition software. It may contain grammatical, syntax or spelling errors. Electronically signed by: Caleb Pretty M.D. 02/06/2023 3:16 PM ECG Additional Comments: Normal sinus rhythm Low voltage QRS Possible Inferior infarct (cited on or before 07-DEC-2022) Abnormal ECG When compared with ECG of 07-DEC-2022 18:10, Nonspecific T wave abnormality now evident in Anterior leads Code Status & VTE Plan Code Status Full code VTE Prophylaxis Plan VTE Prophylaxis will be ordered: Yes Supervising Physician Co-Signing Physician Notes I personally saw and examined the patient. I verified all cee points and agree with Bismark Cavanaugh PA-C with the following exceptions and/or additions: 77 year old female presents to the ER due to progressive weakness and loss of balance resulting in recurrent falls. Currently family and patient interested in placement as no longer felt to be safe at home. O/E No acute distress, frequent lip smacking, no tremor, HS RRR, no murmurs, Chest CTAB, Abdo SNT, no one sided weakness or change in sensation A/P Recurrent falls - agree with cervical spine CT given her neck pain, possible polypharmacy contributing and agree to reduction in Seroquel, low suspicion of UTI but also easiest thing to possbly treat. PT/OT, likely need for placement Acute UTI - possible diagnosis given increased weakness but no specific complaints, ceftriaxone pending urine cultures Otherwise as above PG Care Time/CCT Total # of Minutes Spent Total Time Spent with Patient: Total time spent is greater than 50% in coordination of care (as documented) at patient's floor/unit and/or counseling patient: Coding [place] [address] INT INP/OBS CARE 2/55MIN Patient Type Established Medical Decision Making Moderate Complexity Diagnoses Recurrent falls R29.6 Acute UTI (urinary tract infection) N39.0 Neck pain M54.2 Dementia F03.90 Depression F32.9 Hypothyroid E03.9 HTN (hypertension) I10 Elevated alkaline phosphatase level R74.8 Rheumatoid arthritis M06.9
--- NOTE | 2023-02-06 18:48 | Electrocardiogram Report ---
Test Reason : Blood Pressure : / mmHG Vent. Rate : 080 BPM Atrial Rate : 080 BPM P-R Int : 154 ms QRS Dur : 074 ms QT Int : 374 ms P-R-T Axes : 033 -01 021 degrees QTc Int : 431 ms Normal sinus rhythm Low voltage QRS Possible Inferior infarct (cited on or before 07-DEC-2022) Abnormal ECG When compared with ECG of 07-DEC-2022 18:10, Nonspecific T wave abnormality now evident in Anterior leads Confirmed by Krishan Peace ([id number]) on 02/06/2023 6:48:30 PM Referred By: Confirmed By:Ren Peace
[2023-02-06] MEDS: BENZTROPINE MESYLATE 1 MG TAB PO SCH (22:41)
[2023-02-06] MEDS: PILOCARPINE HCL 5 MG TABLET PO SCH (22:42)
[2023-02-06] MEDS: DONEPEZIL HCL 10 MG TAB PO SCH (22:42)
[2023-02-06] MEDS: DOCUSATE SODIUM 100 MG CAP PO SCH (22:42)
[2023-02-06] MEDS: GABAPENTIN 100 MG CAP PO SCH (22:42)
[2023-02-06] MEDS: HYDROXYCHLOROQUINE SULFATE 200 MG TAB PO SCH (22:42)
[2023-02-06] MEDS: traZODone HCL 100 MG TAB PO SCH (22:43)
[2023-02-06] MEDS: QUEtiapine FUMARATE 25 MG TABLET PO SCH (22:43)
[2023-02-07] MEDS: LEVOTHYROXINE SODIUM 25 MCG TABLET PO SCH (05:54)
[2023-02-07 06:10] LABS: Basophils # (auto) 0.04 K/uL (0.00-0.20); Basophils % (auto) 0.5 %; Eosinophils # (auto) 0.12 K/uL (0.00-0.50); Eosinophils % (auto) 1.5 %; Hematocrit (blood only) 42.9 % (37.0-47.0); Hemoglobin 14.5 g/dl (12.0-16.0); Immature Granulocytes # (auto) 0.04 K/uL (0.01-0.20); Immature Granulocytes % (auto) 0.5 %; Lymphocytes # (auto) 1.92 K/uL (1.20-3.40); Mean Corpuscular Hemoglobin 31.9 pg (25.0-34.0); Mean Corpuscular Hgb Conc 33.8 g/dL (32.0-36.0); Mean Corpuscular Volume 94.5 fL (80.0-100.0); Mean Platelet Volume 10.2 fL (9.4-12.4); Monocytes # (auto) 0.97 K/uL (0.11-0.59); Monocytes % (auto) 12.1 %; Neutrophils # (auto) 4.92 K/uL (1.40-6.50); Neutrophils % (auto) 61.4 %; Platelet Count 228 K/uL (130-400); RDW Coefficient of Variation 13.3 % (11.5-14.5); RDW Standard Deviation 45.9 fL (36.4-46.3); Red Blood Count 4.54 M/uL (4.20-5.40); White Blood Count 8.01 K/ul (4.8-10.8)
[2023-02-07 06:28] LABS: Albumin Level 4.1 gm/dl (3.4-5.0); Bilirubin,Total 0.3 mg/dl (0.2-1.0); Calcium 9.8 mg/dl (8.6-10.3); Potassium 4.6 mmol/L (3.5-5.1)
[2023-02-07 06:34] LABS: Albumin Globulin Ratio 1.5 (0.9-2); BUN Creatinine Ratio 22.5 (10-20); Creatinine Clr Calc Pharmacy 46.7 ml/min; Est GFR (African American) 61.9 ml/min; Est GFR (Non-African American) 53.4 ml/min; Globulin 2.8 gm/dl (2.5-4.0); Total Protein 6.9 gm/dl (6.0-8.3)
[2023-02-07] MEDS: GABAPENTIN 100 MG CAP PO SCH ×3 (09:33→19:31)
[2023-02-07] MEDS: lisinopril 5 MG TAB PO SCH (09:33)
[2023-02-07] MEDS: ATORVASTATIN 10 MG TAB PO SCH (09:33)
[2023-02-07] MEDS: lamoTRIgine 25 MG TAB PO SCH (09:33)
[2023-02-07] MEDS: PILOCARPINE HCL 5 MG TABLET PO SCH ×3 (09:34→19:31)
--- NOTE | 2023-02-07 10:07 | Hospitalist Progress Note ---
Date of Service February 07, 2023 Assessment & Plan (1) Recurrent falls: Plan: Pt is a 77 yo female with PMH of Alzheimer's dementia, anxiety, depression, HTN, and overactive bladder presenting due to recurrent falls. Recurrent falls - unsure of etiology; mechanical/weakness vs. polypharmacy vs. multifactorial - CT head and CXR were negative for acute findings; CT neck showed chronic C1 fracture - sedating home medications include TID seroquel, HStrazodone, TID gabapentin - decrease seroquel TID to HS only - PT/OT recommending SNF; case management placed referrals to [facility] and [facility] [place] UTI - UA positive for nitrite and 2+ LE; urine cx grew e.coli, sensitivities pending - s/p one dose of ceftriaxone in the ED - continue with cefdinir 300 mg BID Neck pain - CT neck showed chronic C1 fracture - ortho consulted for evaluation Dementia - continue home aricept and lamictal - continue cogentin for EPS - reduce seroquel from TID to HS Depression - continue pristiq Hypothyroidism - continue levothyroxine HTN - continue lisinopril Elevated alkaline phosphatase level - elevated at 132; has been chronically elevated - no abdominal pain; does not appear to be an acute concern Rheumatoid arthritis - continue plaquenil Diet: heart healthy, minced and moist Code: full DVT ppx: lovenox Consults: ortho Dispo: med/surg, pending SNF placement (2) Acute UTI (urinary tract infection): (3) Neck pain: (4) Hypothyroid: (5) HTN (hypertension): (6) Alzheimers disease: (7) Elevated alkaline phosphatase level: (8) Rheumatoid arthritis: Admission and Anticipated Discharge Date Admission Date: February 06, 2023 Supervising Physician Co-Signing Physician Notes Attending attestation Pt seen and examined in concert with Dr. Mays. In agreement with the documented findings as noted in the resident documentation with any exceptions or additions as noted here. Resting in bed with intermittent complaint of aching neck pain without numbness/tingling/weakness. Intermittently reports urinary symptoms On examination, S1/S2 nl RRR no MCG. CTAB. Abd NT/ND BS+ve Recurrent falls in the setting of polypharmacy - PT/OT - agree w/ decreased seroquel with consideration of decreased trazodone dose vs. decreased benztropine/gabapentin based on response and tolerance. UTI - abnormal UA with UCx pending. Continue ceftriaxone Neck pain with C1 ring fracture reported on CT - ortho spine consultation Else see resident documentation as noted. Subjective Pt seen at bedside this AM with . She states she has had multiple falls over the past few weeks. states she had a fall last week where she hit her head. This injury left a bruise/swelling at the back of her head. Her explains that with this falling episodes it appears that her legs "give out" when she stands up. Otherwise, pt feels fine this AM. Review of Systems Review of Systems: As per HPI Physical Exam Physical Exam: Constitutional: well appearing, no acute distress HEENT: normocephalic, no conjunctival injection CV: regular rhythm, regular rate, no murmur, no LE edema Respiratory: Clear to auscultation bilaterally. No rhonchi, wheezes, or crackles. No increased work of breathing MSK: no gross deformities noted Skin: warm, dry, no rashes Neuro: alert, answers questions appropriately, no FND noted Results & Data Results & Data Vital Signs (Past 12 Hours) Vital Signs Temp Pulse Resp BP Pulse Ox O2 Del Method 02/07/23 08:28 37.0 C 89 18 117/71 95 Room Air 02/06/23 22:55 37.0 C 80 18 124/75 95 Room Air Resident Activity Tracking Resident Involvement: Resident Care Provided Care Provided: Adult Hospital Medicine
--- NOTE | 2023-02-07 10:37 | CT Scan Report ---
CT SCAN OF THE CERVICAL SPINE CLINICAL HISTORY: Fall. Neck pain. COMPARISON STUDY: CT of the cervical spine dated 11/27/2021. TECHNIQUE: CT scan of the cervical spine is performed from the skull base to the upper thoracic spine . Images are reviewed in the axial, sagittal, and coronal planes. IV contrast was not administered fo r this examination. A dose lowering technique was utilized adhering to the principles of ALARA. The examination is significantly degraded by streak artifact from extensive metallic spinal hardware. FINDINGS: Skeletal structures: The skeletal structures are osteopenic. No acute fracture or subluxation is seen involving the cervical spine. There is a chronic appearing fracture involving the right ring of C1, best seen on coronal image #36. This is corticated, but new from the 2021 examination. There is chron ic posttraumatic deformity seen involving the C2 vertebral body with minimal anterolisthesis at C2-C3 . Vertebral body height is maintained. Alignment is otherwise preserved. There is straightening of t he cervical lordosis. There is postoperative change from anterior spinal fusion seen at C3-C6. There is postoperative change from posterior fusion extending from C2 into the thoracic region with spinal rods in place. The orthopedic hardware appears intact. The interpedicular screws at T1 extending to t he costovertebral joints. There is a moderate chronic compression deformity of T2. The odontoid proce ss and lateral masses are intact. The atlantoaxial articulation is preserved noting productive degene rative change. The spinous processes appear intact. Intervertebral discs: There is evidence of multilevel discectomy throughout the cervical spine. Central canal: Not well assessed due to significant streak artifact. Soft tissues: The prevertebral and paraspinous soft tissues are normal as visualized. Calvarium: Craniectomy change is noted in the right occipital bone. Imaged portions of the skull base otherwise appear intact. Brain parenchyma: Partially visualized brain parenchyma at the skull base is within normal limits. Sinuses and mastoids: The visualized paranasal sinuses are clear. The mastoid air cells are well pneu matized. Lung apices: Clear as visualized. IMPRESSION: 1. No acute fracture or subluxation is clearly seen involving the cervical spine. 2. There is a chronic-appearing fracture involving the right ring of C1. This appears well-corticated but is new from 11/27/2021. Correlate clinically. 3. Chronic posttraumatic and extensive postsurgical changes as above. ACT 112: Negative or not required by law. Electronically signed by: Khoa Fletcher M.D. 02/07/2023 10:35 AM
[2023-02-07] MEDS ORDERED: cefTRIAXone SODIUM 1,000 MG in DEXTROSE 5% 50 ML IV SCH (17:00)
[2023-02-07] MEDS: ENOXAPARIN INJ 40 MG/0.4 ML SYR SQ SCH (17:04)
[2023-02-07] MEDS: traZODone HCL 100 MG TAB PO SCH (19:29)
[2023-02-07] MEDS: CEFDINIR 300 MG CAP PO SCH (19:29)
[2023-02-07] MEDS: DOCUSATE SODIUM 100 MG CAP PO SCH (19:30)
[2023-02-07] MEDS: QUEtiapine FUMARATE 25 MG TABLET PO SCH (19:30)
[2023-02-07] MEDS: BENZTROPINE MESYLATE 1 MG TAB PO SCH (19:30)
[2023-02-07] MEDS: DONEPEZIL HCL 10 MG TAB PO SCH (19:30)
[2023-02-07] MEDS: HYDROXYCHLOROQUINE SULFATE 200 MG TAB PO SCH (19:31)
[2023-02-07] MEDS ORDERED: cefTRIAXone SODIUM 2,000 MG in DEXTROSE 5% 50 ML IV SCH (20:00)
[2023-02-08] MEDS: LEVOTHYROXINE SODIUM 25 MCG TABLET PO SCH (05:17)
--- NOTE | 2023-02-08 07:21 | Hospitalist Progress Note ---
Date of Service February 08, 2023 Assessment & Plan (1) Recurrent falls: Plan: Pt is a 77 yo female with PMH of Alzheimer's dementia, anxiety, depression, HTN, and overactive bladder presenting due to recurrent falls. Recurrent falls - unsure of etiology; mechanical/weakness vs. polypharmacy vs. multifactorial - CT head and CXR were negative for acute findings; CT neck showed chronic C1 fracture - sedating home medications include TID seroquel, HStrazodone, TID gabapentin - continue seroquel at HS only - PT/OT recommending SNF; case management placed referrals to [facility] and [facility] UTI - UA positive for nitrite and 2+ LE; urine cx grew e.coli, sensitivities pending - s/p one dose of ceftriaxone in the ED - continue with cefdinir 300 mg BID (last dose 02/11 AM) Neck pain - CT neck showed chronic C1/C2 fracture - ortho consulted for evaluation; no surgical intervention required - continue with PT/pain control Dementia - continue home aricept and lamictal - continue cogentin for EPS - continue with seroquel at reduced dose (HS instead of TID) Depression - continue pristiq Hypothyroidism - continue levothyroxine HTN - continue lisinopril Elevated alkaline phosphatase level - elevated at 132; has been chronically elevated - no abdominal pain; does not appear to be an acute concern Rheumatoid arthritis - continue plaquenil Diet: heart healthy, minced and moist Code: full DVT ppx: lovenox Dispo: med/surg, pending SNF placement (2) Acute UTI (urinary tract infection): (3) Neck pain: (4) Hypothyroid: (5) HTN (hypertension): (6) Alzheimers disease: (7) Elevated alkaline phosphatase level: (8) Rheumatoid arthritis: Admission and Anticipated Discharge Date Admission Date: February 06, 2023 Supervising Physician Co-Signing Physician Notes Attending attestation Pt seen and examined in concert with Dr. Mays. In agreement with the documented findings as noted in the resident documentation with any exceptions or additions as noted here. Improved neck pain today per patient and reports no abdominal pain, dysuria or frequency. On examination, S1/S2 nl RRR no MCG. CTAB. Abd NT/ND BS+ve Subacute cervical spine fracture - orthospine consult - no further intervention required, PT and pain control as noted. Recurrent falls, multifactorial - PT/OT consult - recommending SNF, CM aware Polypharmacy - only adjustment at present has been decreasing seroquel to current dose from TID. Consider further adjustments if needed for [place] nolence/agitation Dementia - doing well, continue regimen as noted Urinary tract infection - complete course of cefdinir Else see resident documentation as noted. Subjective Pt sitting in the chair at bedside this AM. Her neck feels better than yesterday. No new complaints. Review of Systems Review of Systems: As per HPI Physical Exam Physical Exam: Constitutional: well appearing, no acute distress HEENT: normocephalic, no conjunctival injection CV: regular rhythm, regular rate, no murmur, no LE edema Respiratory: Clear to auscultation bilaterally. No rhonchi, wheezes, or crackles. No increased work of breathing GI: soft, nondistended MSK: no gross deformities noted Skin: warm, dry, no rashes Neuro: alert, no FND noted Results & Data Results & Data Vital Signs (Past 12 Hours) Vital Signs Temp Pulse Resp BP Pulse Ox O2 Del Method 02/08/23 07:00 36.8 C 73 18 123/76 96 Room Air Resident Activity Tracking Resident Involvement: Resident Care Provided Care Provided: Adult Hospital Medicine
[2023-02-08] MEDS: GABAPENTIN 100 MG CAP PO SCH ×3 (08:21→20:05)
[2023-02-08] MEDS: ATORVASTATIN 10 MG TAB PO SCH (08:21)
[2023-02-08] MEDS: CEFDINIR 300 MG CAP PO SCH ×2 (08:22→20:38)
[2023-02-08] MEDS: lamoTRIgine 25 MG TAB PO SCH (08:22)
[2023-02-08] MEDS: PILOCARPINE HCL 5 MG TABLET PO SCH ×3 (08:22→20:05)
[2023-02-08] MEDS: lisinopril 5 MG TAB PO SCH (08:22)
[2023-02-08 08:23] LABS: Basophils # (auto) 0.02 K/uL (0.00-0.20); Basophils % (auto) 0.3 %; Eosinophils # (auto) 0.29 K/uL (0.00-0.50); Eosinophils % (auto) 3.8 %; Hematocrit (blood only) 42.1 % (37.0-47.0); Hemoglobin 13.5 g/dl (12.0-16.0); Immature Granulocytes # (auto) 0.02 K/uL (0.01-0.20); Immature Granulocytes % (auto) 0.3 %; Lymphocytes # (auto) 1.87 K/uL (1.20-3.40); Lymphocytes % (auto) 24.5 %; Mean Corpuscular Hemoglobin 30.8 pg (25.0-34.0); Mean Corpuscular Hgb Conc 32.1 g/dL (32.0-36.0); Mean Corpuscular Volume 95.9 fL (80.0-100.0); Mean Platelet Volume 9.7 fL (9.4-12.4); Monocytes # (auto) 0.72 K/uL (0.11-0.59); Monocytes % (auto) 9.4 %; Neutrophils # (auto) 4.71 K/uL (1.40-6.50); Neutrophils % (auto) 61.7 %; Platelet Count 220 K/uL (130-400); RDW Coefficient of Variation 13.2 % (11.5-14.5); RDW Standard Deviation 46.6 fL (36.4-46.3); Red Blood Count 4.39 M/uL (4.20-5.40); White Blood Count 7.63 K/ul (4.8-10.8)
[2023-02-08 08:44] LABS: Albumin Globulin Ratio 1.4 (0.9-2); Albumin Level 3.9 gm/dl (3.4-5.0); BUN Creatinine Ratio 17.6 (10-20); Bilirubin,Total 0.4 mg/dl (0.2-1.0); Calcium 9.3 mg/dl (8.6-10.3); Creatinine Clr Calc Pharmacy 46.7 ml/min; Est GFR (African American) 61.9 ml/min; Est GFR (Non-African American) 53.4 ml/min; Globulin 2.8 gm/dl (2.5-4.0); Potassium 4.6 mmol/L (3.5-5.1); Total Protein 6.7 gm/dl (6.0-8.3)
[2023-02-08] MEDS: ACETAMINOPHEN 325 MG TAB PO PRN (10:03)
--- NOTE | 2023-02-08 10:43 | Orthopedic Consultation ---
Date of Consultation February 08, 2023 Assessment & Plan (1) Neck pain: CAT scan cervical spine demonstrates multilevel fusion up to the C2 level. I appreciate no evidence of new fracture. Suspect her cervicalgia sprain strain phenomenon. Reasonable to have her undergo physical therapy for cervical moda lities and pain control as needed. There is no need for any surgical intervention. History of Present Illness Reason for Consultation: Cervicalgia Attending Physician: Krishan Minaya MD History of Present Illness This is a very pleasant 77-year-old female that presents with onset of new cervicalgia status post fall. She is unable to recall where she had a previous cervical surgery performed. She currently denies any numbness or tingling upper extremities or strength deficits. Allergies Allergy/AdvReac Type Severity Reaction Status Date / Time Iodinated Contrast Media Allergy Severe HIVES Verified 02/06/23 17:33 baclofen AdvReac Intermediate Hallucinati Verified 02/06/23 17:33 ng cyclobenzaprine AdvReac Intermediate Hallucinati Verified 02/06/23 17:33 [From Flexeril] ng morphine AdvReac Intermediate Hallucinati Verified 02/06/23 17:33 ng Penicillins AdvReac Intermediate RASH Verified 02/06/23 17:33 tizanidine [From Zanaflex] AdvReac Intermediate Hallucinati Verified 02/06/23 17:33 ng Home Medications Medication Instructions Recorded Confirmed Type cholecalciferol (vitamin D3) 50 2,000 unit PO QAM 05/15/19 02/06/23 History mcg (2,000 unit) tablet (Vitamin D3) docusate sodium 100 mg capsule 100 mg PO QPM 05/15/19 02/06/23 History (Dulcolax Stool Softener (docusate)) folic acid 1 mg tablet 2 mg PO QPM 05/15/19 02/06/23 History hydroxychloroquine 200 mg tablet 400 mg PO QPM 05/15/19 02/06/23 History lamotrigine 25 mg tablet 75 mg PO QAM 05/15/19 02/06/23 History levothyroxine 25 mcg tablet 25 mcg PO DAILYBB 05/15/19 02/06/23 History (Synthroid) atorvastatin 10 mg tablet 10 mg PO DAILY 11/27/21 02/06/23 History desvenlafaxine succinate 100 mg 100 mg PO QAM 11/27/21 02/06/23 History tablet,extended release 24 hr (Pristiq) desvenlafaxine succinate 25 mg 25 mg PO QAM 11/27/21 02/06/23 History tablet,extended release 24 hr donepezil 10 mg tablet 10 mg PO HS 11/27/21 02/06/23 History gabapentin 100 mg capsule 100 mg PO TID 12/07/22 02/06/23 History multivitamin-iron 9 mg-folic acid 2 tab PO QAM 12/07/22 02/06/23 History 200 mcg-calcium and minerals tablet (One-A-Day Women's Petites) trazodone 100 mg tablet 100 mg PO HS 12/07/22 02/06/23 History benztropine 1 mg tablet 1 mg PO QPM 02/06/23 02/06/23 History cyanocobalamin (vitamin B-12) 1,000 mcg PO DAILY 02/06/23 02/06/23 History 1,000 mcg tablet (Vitamin B-12) lisinopril 5 mg tablet 5 mg PO DAILY 02/06/23 02/06/23 History methylphenidate HCl 10 mg tablet 10 mg PO BID 02/06/23 02/06/23 History (Ritalin) pilocarpine HCl 5 mg tablet 5 mg PO TID 02/06/23 02/06/23 History quetiapine 50 mg tablet 75 mg PO TID 02/06/23 02/06/23 History Patient History Medical History Alzheimers disease Anemia Anxiety Arthritis Depression Hip bursitis, left Hip bursitis, left HTN (hypertension) Hypothyroid Left leg pain Overactive bladder Right peroneal tendonosis Rotator cuff syndrome of left shoulder Trochanteric bursitis, right hip Weakness Surgical History H/O knee surgery History of knee replacement Family History Mother CVA (cerebrovascular accident due to intracerebral hemorrhage) Father Stroke Denies family history of Myocardial infarction Social History Smoking Status: Never smoker Cigarettes Per Day: 1 pack/day; Second Hand Exposure: No; Do You Dip or Chew Tobacco: No; Hx Alcohol Use: No Hx Substance Use: No Preferred Language: Frisian Communication Ability: Effective Communication Ability Comment: reports difficulting writing Visual Impairment: Limited Hearing Ability: Hard of Hearing 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 Has regional strength testing upper extremities. She has almost no motion of the cervical spine. Sensory appears to be symmetric intact. Results & Data Vital Signs (Past 12 Hours) Vital Signs Temp Pulse Resp BP Pulse Ox O2 Del Method 02/08/23 09:44 Room Air 02/08/23 07:00 36.8 C 73 18 123/76 96 Room Air
[2023-02-08] MEDS: ENOXAPARIN INJ 40 MG/0.4 ML SYR SQ SCH (17:13)
[2023-02-08] MEDS: BENZTROPINE MESYLATE 1 MG TAB PO SCH (20:04)
[2023-02-08] MEDS: DONEPEZIL HCL 10 MG TAB PO SCH (20:04)
[2023-02-08] MEDS: traZODone HCL 100 MG TAB PO SCH (20:04)
[2023-02-08] MEDS: QUEtiapine FUMARATE 25 MG TABLET PO SCH (20:04)
[2023-02-08] MEDS: DOCUSATE SODIUM 100 MG CAP PO SCH (20:04)
[2023-02-08] MEDS: HYDROXYCHLOROQUINE SULFATE 200 MG TAB PO SCH (20:05)
[2023-02-09] MEDS: LEVOTHYROXINE SODIUM 25 MCG TABLET PO SCH (05:35)
--- NOTE | 2023-02-09 06:45 | Hospitalist Progress Note ---
Date of Service February 09, 2023 Assessment & Plan (1) Recurrent falls: Plan: Pt is a 77 y/o female with PMH of Alzheimer's dementia, anxiety, depression, HTN, and overactive bladder presenting due to recurrent falls. Recurrent falls Etiology unclear: mechanical/weakness vs polypharmacy vs deconditioning vs multifactorial. CT head and CXR were negative for acute findings; CT neck with chronic C1 fracture Sedating home medications: TID Seroquel, HStrazodone, TID gabapentin. Will do Seroquel HS only. Otherwise continue home meds UTI UA positive for nitrite and 2+ LE; urine cx grew pansensitive e.coli. Completing abx course - last dose of cefdinir 300 mg BID (02/11). Neck pain CT neck showed chronic C1/C2 fracture. Ortho consulted for evaluation; no surgical intervention indicated. continue with PT/pain control Dementia Continue home Aricept and Lamictal. Continue Cogentin for EPS. Continue with Seroquel at reduced dose (HS instead of TID) Depression Continue Pristiq Hypothyroidism Continue levothyroxine HTN Continue lisinopril Elevated alkaline phosphatase level Elevated at 132; has been chronically elevated. No abdominal pain; does not appear to be an acute concern Rheumatoid arthritis Continue Plaquenil Diet: heart healthy, minced and moist Code: full DVT ppx: lovenox Dispo: PT/OT rec SNF, would prefer long-term care facility - awaiting approval from [facility] following (2) Acute UTI (urinary tract infection): (3) Neck pain: (4) Hypothyroid: (5) HTN (hypertension): (6) Alzheimers disease: (7) Elevated alkaline phosphatase level: (8) Rheumatoid arthritis: Admission and Anticipated Discharge Date Admission Date: February 06, 2023 Supervising Physician Co-Signing Physician Notes Attending attestation I personally examined the patient and verified all cee points of history and exam, discussed case, and agree with decision making with Dr Mendez feeling okay, awaiting therapy, main complaint is that she does not like her minced and moist diet. Vitals noted, in general she is awake and alert pleasant no distress. HEENT normocephalic atraumatic mucous membranes moist. Breathing unlabored no accessory muscle use good effort. Skin shows no rashes no pallor or icterus. Neuro without focal deficits. Subacute cervical spine fracture - orthospine consult - no further intervention required, PT and pain control as noted. Doing well in this regard Recurrent falls, multifactorial - PT/OT consult - recommending SNF, CM aware, awaiting placement Polypharmacy - only adjustment at present has been decreasing seroquel to current dose from TID. Consider further adjustments if needed for somnolence/agitationappears to be awake and alert today Dementia - doing well, continue regimen as noted Urinary tract infection - complete course of cefdinir DVT proph - lovenox otherwise as above Subjective Patient reports continued neck pain. Expresses wanting to go home. Otherwise no complaints. at bedside - expresses that she is likely not safe to go home. Review of Systems Review of Systems: As per HPI Physical Exam Physical Exam: Constitutional: well appearing, no acute distress HEENT: normocephalic, no conjunctival injection CV: regular rhythm, regular rate, no murmur, no LE edema Respiratory: Clear to auscultation bilaterally. No rhonchi, wheezes, or crackles. No increased work of breathing GI: soft, nondistended MSK: no gross deformities noted Skin: warm, dry, no rashes Neuro: alert, no FND noted Results & Data Results & Data Vital Signs (Past 12 Hours) Vital Signs Temp Pulse Resp BP Pulse Ox O2 Del Method 02/08/23 19:48 36.9 C 72 18 109/69 97 Room Air Laboratory Results 02/09/23 07:07 02/09/23 07:07 Resident Activity Tracking Resident Involvement: Resident Care Provided Care Provided: Adult Hospital Medicine
[2023-02-09 07:34] LABS: Basophils # (auto) 0.03 K/uL (0.00-0.20); Basophils % (auto) 0.5 %; Eosinophils # (auto) 0.22 K/uL (0.00-0.50); Eosinophils % (auto) 3.3 %; Hematocrit (blood only) 38.1 % (37.0-47.0); Hemoglobin 12.8 g/dl (12.0-16.0); Immature Granulocytes # (auto) 0.03 K/uL (0.01-0.20); Immature Granulocytes % (auto) 0.5 %; Lymphocytes # (auto) 1.93 K/uL (1.20-3.40); Lymphocytes % (auto) 29.3 %; Mean Corpuscular Hemoglobin 31.2 pg (25.0-34.0); Mean Corpuscular Hgb Conc 33.6 g/dL (32.0-36.0); Mean Corpuscular Volume 92.9 fL (80.0-100.0); Mean Platelet Volume 9.8 fL (9.4-12.4); Monocytes # (auto) 0.79 K/uL (0.11-0.59); Neutrophils # (auto) 3.58 K/uL (1.40-6.50); Neutrophils % (auto) 54.4 %; Platelet Count 229 K/uL (130-400); RDW Coefficient of Variation 13.1 % (11.5-14.5); RDW Standard Deviation 44.7 fL (36.4-46.3); White Blood Count 6.58 K/ul (4.8-10.8)
[2023-02-09 07:52] LABS: Albumin Globulin Ratio 1.4 (0.9-2); Albumin Level 3.7 gm/dl (3.4-5.0); BUN Creatinine Ratio 18.4 (10-20); Bilirubin,Total 0.4 mg/dl (0.2-1.0); Creatinine Clr Calc Pharmacy 46.2 ml/min; Est GFR (African American) 61.2 ml/min; Est GFR (Non-African American) 52.8 ml/min; Globulin 2.7 gm/dl (2.5-4.0); Potassium 4.4 mmol/L (3.5-5.1); Total Protein 6.4 gm/dl (6.0-8.3)
[2023-02-09] MEDS: lisinopril 5 MG TAB PO SCH (08:03)
[2023-02-09] MEDS: PILOCARPINE HCL 5 MG TABLET PO SCH ×3 (08:03→19:19)
[2023-02-09] MEDS: lamoTRIgine 25 MG TAB PO SCH (08:04)
[2023-02-09] MEDS: GABAPENTIN 100 MG CAP PO SCH ×3 (08:04→19:17)
[2023-02-09] MEDS: ATORVASTATIN 10 MG TAB PO SCH (08:04)
[2023-02-09] MEDS: CEFDINIR 300 MG CAP PO SCH ×2 (09:20→19:16)
[2023-02-09] MEDS: ACETAMINOPHEN 325 MG TAB PO PRN (11:41)
[2023-02-09] MEDS: ENOXAPARIN INJ 40 MG/0.4 ML SYR SQ SCH (18:06)
--- NOTE | 2023-02-09 18:20 | Billing Data ---
Date of Service February 09, 2023 Coding Level of Care Code 24353 SUB INP/OBS CARE
[2023-02-09] MEDS: DONEPEZIL HCL 10 MG TAB PO SCH (19:16)
[2023-02-09] MEDS: HYDROXYCHLOROQUINE SULFATE 200 MG TAB PO SCH (19:18)
[2023-02-09] MEDS: DOCUSATE SODIUM 100 MG CAP PO SCH (19:18)
[2023-02-09] MEDS: BENZTROPINE MESYLATE 1 MG TAB PO SCH (19:18)
[2023-02-09] MEDS: QUEtiapine FUMARATE 25 MG TABLET PO SCH (19:19)
[2023-02-09] MEDS: traZODone HCL 100 MG TAB PO SCH (19:19)
[2023-02-10] MEDS: LEVOTHYROXINE SODIUM 25 MCG TABLET PO SCH (05:22)
--- NOTE | 2023-02-10 06:59 | Hospitalist Progress Note ---
Date of Service February 10, 2023 Assessment & Plan (1) Recurrent falls: Plan: Pt is a 77 y/o female with PMH of Alzheimer's dementia, anxiety, depression, HTN, and overactive bladder presenting due to recurrent falls now stable for discharge to SNF with plan for assisted care stay. Recurrent falls Etiology unclear: mechanical/weakness vs polypharmacy vs deconditioning vs multifactorial. CT head and CXR were negative for acute findings; CT neck with chronic C1 fracture Sedating home medications: TID Seroquel, HStrazodone, TID gabapentin. Will do Seroquel HS only. Otherwise continue home meds UTI UA positive for nitrite and 2+ LE; urine cx grew pansensitive e.coli. Completing abx course - last dose of cefdinir 300 mg BID (02/11). Neck pain CT neck showed chronic C1/C2 fracture. Ortho consulted for evaluation; no surgical intervention indicated. continue with PT/pain control Dementia Continue home Aricept and Lamictal. Continue Cogentin for EPS. Continue with Seroquel at reduced dose (HS instead of TID) Depression Continue Pristiq Hypothyroidism Continue levothyroxine HTN Continue lisinopril Elevated alkaline phosphatase level Elevated at 132; has been chronically elevated. No abdominal pain; does not appear to be an acute concern Rheumatoid arthritis Continue Plaquenil Diet: heart healthy, minced and moist Code: full DVT ppx: lovenox Dispo: PT/OT rec SNF, would prefer long-term care facility - awaiting approval from [facility] following (2) Acute UTI (urinary tract infection): (3) Neck pain: (4) Hypothyroid: (5) HTN (hypertension): (6) Alzheimers disease: (7) Elevated alkaline phosphatase level: (8) Rheumatoid arthritis: Admission and Anticipated Discharge Date Admission Date: February 09, 2023 Supervising Physician Co-Signing Physician Notes Attending attestation I personally examined the patient and verified all cee points of history and exam, discussed case, and agree with decision making with Dr Mendez no new complaints, pending placement. Vitals noted, in general she is awake and alert pleasant no distress. HEENT normocephalic atraumatic mucous membranes moist. Breathing unlabored no accessory muscle use good effort. Skin shows no rashes no pallor or icterus. Neuro without focal deficits. Subacute cervical spine fracture - orthospine consult - no further intervention required, PT and pain control as noted. Doing well in this regard Recurrent falls, multifactorial - PT/OT consult - recommending SNF, CM aware, awaiting placement - stable once available Polypharmacy - only adjustment at present has been decreasing seroquel to current dose from TID. Consider further adjustments if needed for somnolence/agitationappears to be awake and alert today Dementia - doing well, continue regimen as noted Urinary tract infection - complete course of cefdinir DVT proph - lovenox otherwise as above Subjective Patient seen at bedside this AM. Some improvement in neck pain. Review of Systems Review of Systems: As per HPI Physical Exam Physical Exam: Constitutional: well appearing, no acute distress HEENT: normocephalic, no conjunctival injection CV: clinically well perfused Respiratory: no increased work of breathing GI: soft, nondistended MSK: no gross deformities noted Skin: warm, dry, no rashes Neuro: alert, no FND noted Results & Data Results & Data Vital Signs (Past 12 Hours) Vital Signs Temp Pulse Resp BP BP Pulse Ox O2 Del Method 02/09/23 21:20 36.8 C 73 16 94/57 L 94/60 L 95 Room Air Resident Activity Tracking Resident Involvement: Resident Care Provided Care Provided: Adult Hospital Medicine
[2023-02-10 07:00] LABS: BUN Creatinine Ratio 21.7 (10-20); Calcium 8.8 mg/dl (8.6-10.3); Creatinine Clr Calc Pharmacy 51.8 ml/min; Est GFR (African American) 70.1 ml/min; Est GFR (Non-African American) 60.5 ml/min
[2023-02-10] MEDS: CEFDINIR 300 MG CAP PO SCH ×2 (08:04→19:30)
[2023-02-10] MEDS: PILOCARPINE HCL 5 MG TABLET PO SCH ×3 (08:04→19:30)
[2023-02-10] MEDS: ATORVASTATIN 10 MG TAB PO SCH (08:04)
[2023-02-10] MEDS: GABAPENTIN 100 MG CAP PO SCH ×3 (08:04→19:29)
[2023-02-10] MEDS: lamoTRIgine 25 MG TAB PO SCH (08:05)
[2023-02-10] MEDS: lisinopril 5 MG TAB PO SCH (08:05)
[2023-02-10] MEDS: ENOXAPARIN INJ 40 MG/0.4 ML SYR SQ SCH (16:39)
--- NOTE | 2023-02-10 18:21 | Billing Data ---
Date of Service February 10, 2023 Coding Level of Care Code 93571 SUB INP/OBS CARE
[2023-02-10] MEDS: QUEtiapine FUMARATE 25 MG TABLET PO SCH (19:29)
[2023-02-10] MEDS: BENZTROPINE MESYLATE 1 MG TAB PO SCH (19:30)
[2023-02-10] MEDS: traZODone HCL 100 MG TAB PO SCH (19:30)
[2023-02-10] MEDS: DONEPEZIL HCL 10 MG TAB PO SCH (19:30)
[2023-02-10] MEDS: DOCUSATE SODIUM 100 MG CAP PO SCH (19:31)
[2023-02-10] MEDS: HYDROXYCHLOROQUINE SULFATE 200 MG TAB PO SCH (19:31)
[2023-02-11] MEDS: LEVOTHYROXINE SODIUM 25 MCG TABLET PO SCH (05:25)
[2023-02-11] MEDS: ACETAMINOPHEN 325 MG TAB PO PRN (07:45)
[2023-02-11 08:12] LABS: BUN Creatinine Ratio 15.3 (10-20); Calcium 8.9 mg/dl (8.6-10.3); Est GFR (African American) 77.1 ml/min; Est GFR (Non-African American) 66.6 ml/min; Potassium 4.2 mmol/L (3.5-5.1)
[2023-02-11] MEDS: lamoTRIgine 25 MG TAB PO SCH (08:25)
[2023-02-11] MEDS: PILOCARPINE HCL 5 MG TABLET PO SCH (08:25)
[2023-02-11] MEDS: lisinopril 5 MG TAB PO SCH (08:25)
[2023-02-11] MEDS: GABAPENTIN 100 MG CAP PO SCH (08:26)
[2023-02-11] MEDS: CEFDINIR 300 MG CAP PO SCH (08:27)
[2023-02-11] MEDS: ATORVASTATIN 10 MG TAB PO SCH (08:27)
--- NOTE | 2023-02-11 09:39 | Discharge Summary ---
Date of Service February 11, 2023 Admission HPI Per Admitting Provider Divya is a 77yo Female with PMH anxiety, depression, dementia, HTN, hypothyroidism, and RA who presented to the [facility] ED via EMS on 02/06 for weakness and recurrent falls. In the ED vitals were stable. Labs were significant for CBC, CMP, and initial high sen trop were significant for an alk phos of 132 (has been higher in the past). Ua is positive for UTI. CT of the head wo con and chest xray were read as negative for acute findings. Prior to admission the patient was given a dose of Ceftriaxone. We were asked to admit the patient for UTI and likely placement. At the time of the exam the patient was lying in bed in no acute distress with her Son sitting bedside, history was obtained from both. The patient and her son state that the patient has been getting progressively weaker over the past year. She has had many falls and was last admitted after a fall in November. Today the patient was in the kitchen, standing at their counter when she suddenly lost her balance and fell backwards. She denies feeling lightheaded or dizzy, or having chest pain, hear palpitations, or SOB prior to her fall. She did hit her head when she fell and is unsure if she lost consciousness. She has tried to use a walker in the past for ambulation but states that she still has difficulty safely walking at home. Her son states, "unfortunately my dad is not strong enough to care for her anymore". They are interested in placement at discharge with all of her recent falls. She denies recent fever, chills, chest pain, SOB, cough, abd pain, nausea, vomiting, diarrhea, dysuria, hematuria, melena, and LE swelling. She does note neck pain when asked and during my exam. Her son explains that she had a previous neck injury and chronic neck pain from a previous fall. We discussed code status, at this time she does have a living will and wishes to be a Full code. Please refer to Dr. Burt's attestation for any changes to the treatment plan Admission Exam Per Admitting Provider Physical Exam: General:In no acute distress, stated age, chronically ill appearing HEENT:Normocephalic,patient with small bruise on the posterior skull in various stages of healing,no scleral icterus, pupils around round, symmetrical, and reactive to light, moist mucus membranes, trachea midline, no thyromegaly Chest/Pulm:No respiratory distress, symmetrical chest expansion, clear br eath sounds throughout Cardiac:RRR, no murmurs noted Abdomen:Negative for ascites and bruising, normoactive bowel sounds, soft, non-tender to palpation throughout Musculoskeletal:No crepitus on palpation of the face, head, or cervical spine. Patient does have pain over the cervical spine with flexion and palpation, otherwise no other trauma noted on exam Extremities:Radial, dorsalis pedis, and posterior tibial pulses are intact and symmetrical, no edema noted in the BL LE's Skin:Warm, dry, no rashes , lesions, or scars noted Neuro:Alert and oriented to person only, CN II-XII tested and intact, patient with EPS such as lip smacking and pill rolling at rest, no tremor noted Psych:No acute distress, calm and cooperative during the exam Principal Diagnosis UTI, deconditioning Discharge Exam Constitutional: well appearing, no acute distress HEENT: normocephalic, no conjunctival injection CV: clinically well perfused Respiratory: no increased work of breathing GI: soft, nondistended MSK: no gross deformities noted Skin: warm, dry, no rashes Neuro: alert, no FND noted Discharge Data Allergies Allergy/AdvReac Type Severity Reaction Status Date / Time Iodinated Contrast Media Allergy Severe HIVES Verified 02/06/23 17:33 baclofen AdvReac Intermediate Hallucinati Verified 02/06/23 17:33 ng cyclobenzaprine AdvReac Intermediate Hallucinati Verified 02/06/23 17:33 [From Flexeril] ng morphine AdvReac Intermediate Hallucinati Verified 02/06/23 17:33 ng Penicillins AdvReac Intermediate RASH Verified 02/06/23 17:33 tizanidine [From Zanaflex] AdvReac Intermediate Hallucinati Verified 02/06/23 17:33 ng Consultations 02/06/23 17:42 ED Decision to Admit Stat 02/07/23 15:43 Consult Orthopedic Surgery Routine Ordered Studies Chest X-Ray 02/06/23 14:40 XR chest 1V portable HISTORY: Sepsis COMPARISON: Chest 12/07/2022. FINDINGS: No pneumothorax. No pleural effusions. No focal lung consolidations to suggest a pneumonia. No evidence for pulmonary edema. The cardiac silhouette remains normal in size. Extensive spinal fusion hardware again noted. IMPRESSION: No significant change compared to the prior study. No acute process. Head CT 02/06/23 14:40 FINDINGS: No acute intracranial hemorrhage, midline shift, intracranial mass, acute territorial ischemia or abnormal extra-axial collection. Unchanged calc ifications within the right prepontine/ambient cistern. Involutional changes with chronic microvascular ischemic disease. Unchanged ventriculomegaly. Partially imaged lumbar spinal fusion hardware. Chronic right occipital calvarial defect. The paranasal sinuses, mastoid air cells, and middle ear cavities are clear. IMPRESSION: No acute intracranial abnormality. Cervical Spine CT 02/07/23 08:45 FINDINGS: Skeletal structures: The skeletal structures are osteopenic. No acute fracture or subluxation is seen involving the cervical spine. There is a chronic appearing fracture involving the right ring of C1, best seen on coronal image #36. This is corticated, but new from the 2021 examination. There is chronic posttraumatic deformity seen involving the C2 vertebral body with minimal anterolisthesis at C2-C3. Vertebral body height is maintained. Alignment is otherwise preserved. There is straightening of the cervical lordosis. There is postoperative change from anterior spinal fusion seen at C3-C6. There is postoperative change from posterior fusion extending from C2 into the thoracic region with spinal rods in place. The orthopedic hardware appears intact. The interpedicular screws at T1 extending to the costovertebral joints. There is a moderate chronic compression deformity of T2. The odontoid process and lateral masses are intact. The atlantoaxial articulation is preserved noting productive degenerative change. The spinous processes appear intact. Intervertebral discs: There is evidence of multilevel discectomy throughout the cervical spine. Central canal: Not well assessed due to significant streak artifact. Soft tissues: The prevertebral and paraspinous soft tissues are normal as visualized. Calvarium: Craniectomy change is noted in the right occipital bone. Imaged portions of the skull base otherwise appear intact. Brain parenchyma: Partially visualized brain parenchyma at the skull base is within normal limits. Sinuses and mastoids: The visualized paranasal sinuses are clear. The mastoid air cells are well pneumatized. Lung apices: Clear as visualized. IMPRESSION: 1. No acute fracture or subluxation is clearly seen involving the cervical spine. 2. There is a chronic-appearing fracture involving the right ring of C1. This appears well-corticated but is new from 11/27/2021. Correlate clinically. 3. Chronic posttraumatic and extensive postsurgical changes as above. 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 Recurrent falls Etiology unclear: mechanical/weakness vs polypharmacy vs deconditioning vs multifactorial. CT head and CXR were negative for acute findings; CT neck with chronic C1 fracture Sedating home medications: TID Seroquel, HStrazodone, TID gabapentin. Changed Seroquel dosing to HS only. Otherwise no medication changes. UTI UA positive for nitrite and 2+ LE; urine cx grew pansensitive e.coli. Completed abx course with 5 days of cefdinir [address]ID. Neck pain CT neck showed chronic C1/C2 fracture. Ortho consulted for evaluation; no surgical intervention indicated. Continue PT and pain control with Tylenol as needed. Dementia Continue home Aricept and Lamictal. Continue Cogentin for EPS. Continue with S eroquel at reduced dose (HS instead of TID) Depression Continue Pristiq Hypothyroidism Continue levothyroxine HTN Continue lisinopril Elevated alkaline phosphatase level Elevated at 132; has been chronically elevated. No abdominal pain; does not appear to be an acute concern. Rheumatoid arthritis Continue Plaquenil Diet: heart healthy, minced and moist Code: full DVT ppx: lovenox Dispo: PT/OT rec SNF, would prefer long-term care facility - awaiting approval from [employer] [facility] following (2) Acute UTI (urinary tract infection): (3) Neck pain: (4) Hypothyroid: (5) HTN (hypertension): (6) Alzheimers disease: (7) Elevated alkaline phosphatase level: (8) Rheumatoid arthritis: Total Time Total Time Spent Total Time Spent (In Minutes): <30 Discharge Plan Discharge Items Patient Disposition: Transfer Retirement Fac Reason For Visit: GENERALIZED WEAKNESS, UTI, NEED FOR PLACEMENT Discharge Diagnosis: UTI Activity: Per Instructions section Non-emergency contact: Primary Care Provider Call non-emergency contact if: your symptoms worsen and your temperature is above 101.5 Follow-up/Referrals: Mary Mccarthy MD [Primary Care Provider] - Diet: Heart Healthy Diet Texture: Easy to Chew Addtl Attending Provider Instructions: Pt is a 77 y/o female with PMH of Alzheimer's dementia, anxiety, depression, HTN, and overactive bladder presenting due to recurrent falls now stable for discharge to SNF with 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 Recurrent falls Etiology unclear: mechanical/weakness vs polypharmacy vs deconditioning vs multifactorial. CT head and CXR were negative for acute findings; CT neck with chronic C1 fracture Sedating home medications: TID Seroquel, HStrazodone, TID gabapentin. Will do Seroquel HS only. Otherwise continue home meds UTI UA positive for nitrite and 2+ LE; urine cx grew pansensitive e.coli. Completed abx course with 5 days of cefdinir [address] mg [address]ID. Neck pain CT neck showed chronic C1/C2 fracture. Ortho consulted for evaluation; no surgical intervention indicated. Continue PT and pain control with Tylenol as needed. Dementia Continue home Aricept and Lamictal. Continue Cogentin for EPS. Continue with Seroquel at reduced dose (HS instead of TID) Depression Continue Pristiq Hypothyroidism Continue levothyroxine HTN Continue lisinopril Elevated alkaline phosphatase level Elevated at 132; has been chronically elevated. No abdominal pain; does not appear to be an acute concern. Rheumatoid arthritis Continue Plaquenil Diet: heart healthy, minced and moist Code: full DVT ppx: lovenox Dispo: PT/OT rec SNF, would prefer long-term care facility - awaiting approval from [employer] [facility] following Pending Studies at Discharge: No Stand-Alone Forms: [facility] Skilled Items Patient informed of condition?: Yes DNR: No Discharge Level of Care: Skilled Communicable Disease: No Discharge Prognosis: Stable Lines: None Urinary Catheter: No Medications and DC Order Prescriptions: New quetiapine 25 mg Tablet 75 mg PO HS Qty: 30 0RF Continued cholecalciferol (vitamin D3) [Vitamin D3] 2,000 unit Tablet 2,000 unit PO QAM lamotrigine 25 mg Tablet 75 mg PO QAM levothyroxine [Synthroid] 25 mcg Tablet 25 mcg PO DAILYBB docusate sodium [Dulcolax Stool Softener (dss)] 100 mg Capsule 100 mg PO QPM hydroxychloroquine 200 mg Tablet 400 mg PO QPM Rx Instructions: 2 tablet dose folic acid 1 mg Tablet 2 mg PO QPM atorvastatin 10 mg tablet 10 mg PO DAILY desvenlafaxine succinate [Pristiq] 100 mg tablet extended release 24 hr 100 mg PO QAM Rx Instructions: TOTAL DOSE 125 MG--TAKES WITH 25 MG TAB. desvenlafaxine succinate 25 mg tablet extended release 24 hr 25 mg PO QAM Rx Instructions: TOTAL DOSE 125 MG--TAKES WITH 100 MG TAB. donepezil 10 mg tablet 10 mg PO HS trazodone 100 mg tablet 100 mg PO HS gabapentin 100 mg Capsule 100 mg PO TID One-A-Day Women's Petites 9 mg iron-200 mcg Tablet 2 tab PO QAM pilocarpine HCl 5 mg tablet 5 mg PO TID methylphenidate HCl [Ritalin] 10 mg tablet 10 mg PO BID cyanocobalamin (vitamin B-12) [Vitamin B-12] 1,000 mcg Tablet 1,000 mcg PO DAILY benztropine 1 mg tablet 1 mg PO QPM lisinopril 5 mg tablet 5 mg PO DAILY Discontinued quetiapine 50 mg tablet 75 mg PO TID Discharge Orders: Discharge Order (Routine); Ordered 02/11/23 Ordered By: Noemi Mendez Admission Data Admit Date/Time: 02/09/23 12:47 Attending Provider: Rusty De Paz Admit Provider: Chava Burt Primary Care Provider: Mary Mccarthy Other Providers: Chava Burt ; [facility] ; [facility] ; Shiv Miller ; Krishan Minaya Other Interventions: Discharge Summary Assessment (RN) Last Done: 02/11/23 13:20 Supervising Physician Co-Signing Physician Notes Attending attestation I personally examined the patient and verified all cee points of history and exam, discussed case, and agree with decision making with Dr Mendez for placement today Vitals noted, in general she is awake and alert pleasant no distress. HEENT normocephalic atraumatic mucous membranes moist. Breathing unlabored no accessory muscle use good effort. Skin shows no rashes no pallor or icterus. Neuro without focal deficits. Subacute cervical spine fracture - orthospine consult - no further intervention required, PT and pain control as noted. Doing well in this regard Recurrent falls, multifactorial - PT/OT consult -- stable and going today Polypharmacy - only adjustment at present has been decreasing seroquel to curren t dose from TID. Consider further adjustments if needed for somnolence/agitationappears to be awake and alert today Dementia - doing well, continue regimen as noted Urinary tract infection - complete course of cefdinir DVT proph - lovenox otherwise as above Resident Activity Tracking Resident Involvement: Resident Care Provided Care Provided: Adult Hospital Medicine
--- NOTE | 2023-02-11 16:58 | Billing Data ---
Date of Service February 11, 2023 Coding Level of Care Code 88625 IN/OBS DISCH 30 MIN/LESS
== END 2023-02-11 13:41 | DRG 690 ==
LOC: ED 14:30 → 3W 14:30 → SUATTDRO 17:43 → 3W 21:00